=== PATIENT | male | born 1970 | race Caucasian/White ===

== ENCOUNTER 2019-09-18 19:34 | Emergency (ER) | payer SELFPAY ==
[2019-09-18 19:38] VITALS: BP 178/97; PULSE 100; RESP 16; TEMP 36.5; O2SAT 98
--- NOTE | 2019-09-18 19:50 | ED.GENADUL_ITS ---
Discharge Plan Disposition Patient Disposition: HOME Condition: Fair Discharge Details Chief Complaint: Sorethroat Clinical Impression: Abscess of tonsil Primary Care Provider: None,None ED Provider: Maritza Humphrey Home Meds and New Rx's Prescriptions: New clindamycin HCl 150 mg capsule 450 mg PO TID 6 Days Qty: 54 RF: 0 Discharge Instructions Instructions: Clindamycin (By mouth), Abscess (ED) Additional Instructions: Encourage water intake. Tylenol and/or ibuprofen as needed for discomfort. Please take the antibiotics as prescribed. Even if symptoms improve, please take entire course. Please take probiotic while on the antibiotic. You need close follow-up with ENT tomorrow for reevaluation of the abscess that was drained tonight. Please call ENT at [facility] tomorrow, . If you develop inability to swallow, increased swelling, fevers, headache or other new/worsening symptom please seek care urgently once again. Referrals: Elias Navarro DO [OSTEOPATHIC DOCTOR] - Discharge Data Discharge Date/Time-TO BE ENTERED AT DEPARTURE: 09/19/19 00:03 Medical Decision Making <PATRICK Gandhi - Last Filed: 09/19/19 00:09> Patient is a pleasant 49-year-old gentleman presenting today with chief complaint of burning in the back of his mouth and throat. He states this began a few days ago and is progressively been worsening. Endorses a mild sore throat does not have any change in his appetite or eating habits. Has not experienced pain like this historically. Is not having tender discomfort. No fevers or chills. Patient does report overall poor dentition. Also notes that the pain does radiate down to his neck. States that today he coughed and noted a small bit of hematemesis. No large quantities of blood or clot. Weak or lightheaded. Denies any shortness of breath. On exam, patient appears nontoxic. He does appear to have dry mucous membranes. No swelling of the soft palate on the posterior right aspect, tonsillar enlargement and uvular displacement. I am concerned for potential peritonsillar abscess. Palpable lymphadenopathy in the right side. No nuchal rigidity. Patient appears nontoxic. No trismus, speaking in full sentences. No evidence of blood on exam. Plan for CT imaging of the neck. Will obtain baseline labs. Will give dexamethasone as well as clindamycin. Labs reviewed. No leukocytosis. Stable H&H. CMP without significant abnormality. CT reviewed by radiologist: FINDINGS: Sinuses: Minimal partial ethmoid sinusitis. Nasopharynx: Unremarkable. Oropharynx: Enlarged right tonsillar tissue with internal hypodense area (approx 23 x 5 x 19 mm) containing air collections consistent with internal abscess. This area tracks medially to the airway. Hypopharynx: Unremarkable. Larynx: Unremarkable. Normal epiglottis. Retropharyngeal space: Unremarkable. Submandibular/Parotid glands: Normal. Glands are normal in size. Thyroid: Normal. No enlarged or calcified nodules. Lymph nodes: Unremarkable. No lymphadenopathy. Trachea: Visualized trachea is unremarkable. Lungs: Unremarkable as visualized. Bones/joints: See Oropharynx finding. Soft tissues: Unremarkable. No significant soft tissue swelling. IMPRESSION: Enlarged right tonsillar tissue with internal hypodense area (approx 23 x 5 x 19 mm) containing air collections consistent with internal abscess. This area tracks medially to the airway. Discussed these findings with the patient, will consult with ENT. Consulted with Dr. Navarro, there was an accident and he is not national expansion recruiter. No national expansion recruiter physician offered. He did advise that if we are unable ot get the patients abscess drained today, they willl try to get him into office tomorrow. Discussed case with Dr. Jasso. He reviewed the imaging as well as evaluated patient. Feels that he is a candidate for I&D while here. He discussed the risk/benefits as well as expected procedural steps with the patient at length. Respiratory therapy was here as with appropriate follow-up in the event of respiratory issue during the procedure. Patient did tolerate the procedure well. Only scant amount of purulent discharge was obtained. However, patient did appear improved few months later. Patient will continue on clindamycin. Plan to discharge home with 1 dose and for tomorrow morning. Is given return precautions. He will contact ENT tomorrow to schedule prompt follow-up. All of his questions and concerns were addressed and he is agreement this plan. Patient continues to rest comfortably and denies any discomfort at this point. <Tavo Jasso, - Last Filed: 09/18/19 23:54> Postprocedure evaluation at time of discharge demonstrated no evidence of significant swelling in the posterior oropharynx, no worsening of the swelling, no signs of airway compromise. Patient tolerated procedure notably well. HPI <PATRICK Gandhi - Last Filed: 09/19/19 00:09> General Mode of arrival: ambulatory . Date/Time Provider Initiated Documentation: 09/18/19 19:44 . Limitations to Documentation: no limitations . Information obtained by: patient and RN notes reviewed . History of Present Illness 49 year old M presents to the emergency department with the chief complaint of burning in throat, bile taste in back of throat, small amount of hemateme, described as mild, with intensity rated at 1. Quality is described as burning, and is localized to the mouth. Patient reports no radiation. Patient started experiencing this day(s) and it has been constant. No relieving factors improve symptom(s), No exacerbating factors reported . Patient notes denies chest pain, cough, fever/chills, loss of appetite, nausea/vomiting, rash and shortness of breath. Patient did receive the following treatments prior to arrival, none Related Data Home Medications Medication Instructions Recorded Confirmed clindamycin HCl 450 mg PO TID 6 Days #54 cap 09/18/19 Previous Rx's Medication Instructions Recorded clindamycin HCl 450 mg PO TID 6 Days #54 cap 09/18/19 Allergies Allergy/AdvReac Type Severity Reaction Status Date / Time No Known Allergies Allergy Unverified 09/18/19 19:45 General Stated Complaint: Sorethroat ANGELA: 4 Review of Systems <PATRICK Gandhi Last Filed: 09/19/19 00:09> Constitutional Constitutional: Reports as per HPI, Denies chills, Denies fever(s) and Denies headache(s) Eyes Eyes: Reports as per HPI, Denies eye discharge and Denies irritation ENT Ears, Nose, Mouth, and Throat: Reports as per HPI, Denies change in voice, Denies headache(s), Denies hoarseness, Reports neck mass, Reports neck pain, Reports odynophagia, Reports sore throat, Denies throat swelling and Denies tongue swelling Cardiovascular Cardiovascular: Reports as per HPI, Denies chest pain and Denies dyspnea Respiratory Respiratory: Reports as per HPI, Denies chest congestion, Denies cough, Reports hemoptysis, Denies pain with cough and Denies dyspnea Gastrointestinal Gastrointestinal: Reports as per HPI, Denies abdominal pain, Denies change in bowel habits, Denies nausea, Reports odynophagia and Denies vomiting Musculoskeletal Musculoskeletal: Reports neck pain Integumentary/Breasts Skin/Breast: Reports as per HPI and Denies rash Neurologic Neurologic: Reports as per HPI and Denies headache(s) Allergic/Immunologic Allergic/Immunologic: Denies throat swelling and Denies tongue swelling PFSH <PATIRCK Gandhi - Last Filed: 09/19/19 00:09> Social History Smoking/Tobacco Use Status: Current-Occasional Tobacco Type: cigarettes Years smoked: 35 Tobacco: How many years used: 35 Alcohol Intake: current Alcohol Intake frequency: 3 or more drinks per day Alcohol type: beer Drug use: Occasionally Substance use type: marijuana Do you feel safe at home: No Do you feel safe in your relationship?: No Exam <PATRICK Gandhi - Last Filed: 09/19/19 00:09> Const General: cooperative, healthy appearing, comfortable, no acute distress, well developed and well groomed Nutritional Appearance: well nourished and overweight Orientation: alert and awake [facility] Head: normal to inspection, normocephalic and atraumatic Ears: hearing grossly normal bilaterally, external ears normal and TM's normal bilaterally General nose exam: external nose normal and nares normal Face and sinus: normal facial exam, sinuses nontender and face symmetric Mouth: oral mucosae normal, lip normal, tongue normal, mucous membranes dry (dry), no trismus, No restricted motion and other (swelling of the posterior right soft pallate) Teeth and gingiva: poor dentition Throat: abnormal tonsil on the right erythema and hypertrophy and uvula laterally displaced to the left Eyes General: appearance normal, both eyes and all related structures Neck Neck: normal visual inspection, full ROM, no meningeal signs, lymphadenopathy and tender Resp Effort & Inspection: normal respiratory effort, able to speak in complete sentences and no respiratory distress Auscultation: clear to auscultation bilaterally, no rales, no rhonchi and no wheezes Cardio Rate: regular rate Rhythm: regular rhythm Heart Sounds: S1 normal and S2 normal Skin General skin exam: no rashes or lesions noted Neuro General: patient alert and patient awake Cognition: normal cognition Speech: speech normal Gait: normal gait Psych Appearance: grossly normal and well kempt Mental Status: mental status grossly normal Speech and Movement: speech and movement normal Course <PATRICK Gandhi - Last Filed: 09/19/19 00:09> Vital Signs Vital signs: Vital Signs Temperature 36.5 C 09/18/19 19:38 Pulse 100 H 09/18/19 19:38 Respiratory Rate 16 09/18/19 19:38 Blood Pressure 178/97 H 09/18/19 19:38 Pulse Oximetry 98 09/18/19 19:38 Temperature 36.5 C 09/18/19 19:38 Temperature Source Tympanic 09/18/19 19:38 Pulse 100 H 09/18/19 19:38 Respiratory Rate 16 09/18/19 19:38 Respiratory Effort 09/18/19 19:43 Blood Pressure 178/97 H 09/18/19 19:38 Blood Pressure Position Sitting 09/18/19 19:38 Pulse Oximetry 98 09/18/19 19:38 Oxygen Delivery Method Room Air 09/18/19 19:38 Oxygen Flow Rate 0 09/18/19 19:38 Pain Level 1 09/18/19 19:38 <Tavo Jasso DO - Last Filed: 09/18/19 23:54> Abscess I/D Site: Other (Right peritonsillar space) Side (if applicable): Right Sedation/analgesia: None Local Anesthetic: Lidocaine 1% and Other Anesthetic (Let and Hurricaine spray) Amount of anesthesia used (mL): 3 Technique: Needle Aspiration Amount of fluid expressed (mL): 1 Irrigation: No Packing used?: None Complications: Other (2 attempts were made in the area of swelling/edema. Initial attempt made to no fluid removal, second attempt made slightly more lat erally led to a small amount of fluid removal which appeared to be slightly purulent and bloody. Slightly less than 1 mL total. Patient tolerated procedure well with )
[2019-09-18] MEDS: Dexamethasone 10 MG/ML VIAL IVP (20:36)
[2019-09-18] MEDS: Normal Saline 1,000 ML 1000 ML IV (20:36)
[2019-09-18 20:41] LABS: Abs Immature Grans 0.04 k/cumm (0.0-0.09); Absolute Basophil Count 0.02 k/cumm (0.0-0.2); Absolute Eosinophil Count 0.18 k/cumm (0.0-0.7); Absolute Monocyte Count 0.94 k/cumm (0.11-0.7); Absolute Neutrophil Count 5.76 k/cumm (1.2-6.7); Basophils % 0.2; Eosinophils % 1.8; HCT 47.8 % (40.0-50.0); HGB 15.9 g/dL (13.5-17.5); Immature Grans % 0.4 %; Lymphocytes % 28.7; Mean Corp. HGB Concentration 33.3 g/dL (32.0-36.0); Mean Corpuscular Hemoglobin 29.4 pg (27.0-33.0); Mean Corpuscular Volume 88.5 fL (80-95); Mean Platelet Volume 9.4 fL (8.0-11.0); Monocytes % 9.7; Neutrophils % 59.2; Platelet Count 280 x1000/uL (130-400); RBC Distribution Width 12.8 % (11.8-14.1); White Blood Cell Count 9.74 k/cumm (4.4-10.8)
[2019-09-18 20:59] LABS: ALT 20 U/L (16-63); AST 17 U/L (15-37); Albumin 3.8 g/dL (3.4-5.0); Alkaline Phosphatase 71 U/L (46-116); Anion Gap 8.3 mmol/L (3-11); BUN 26 mg/dL (7-18); Bilirubin, Total 0.5 mg/dL (0.2-1.0); CO2 30.7 mmol/L (21.0-32.0); Calcium 9.5 mg/dL (8.5-10.1); Chloride 100 mmol/L (98-107); Glucose 125 mg/dL (74-106); Sodium 139 mmol/L (136-145)
--- NOTE | 2019-09-18 21:34 | DI.CT_ITS ---
EXAM: CT NECK W CLINICAL HISTORY: concern for peritonsilar abscess. TECHNIQUE: Imaging Protocol: Axial computed tomography images with coronal and sagittal reformatted images were created and reviewed CONTRAST MATERIAL: Intravenous: Omnipaque 350 Contrast volume:100 mL COMPARISON: No exams were available for comparison FINDINGS: Parotids/submandibular: Within normal limits. Thyroid gland: Within normal limits. Lymphadenopathy: There is an enlarged lymph node at the level of the right angle of the mandible luke suring 3.3 cm transverse by 2.6 cm AP by 5.4 cm craniocaudal. Carotids/Jugular: Within normal limits. Oropharynx: There is enlarged right tonsillar tissue within area of decreased density centrally. Thi s measures approximately 2.3 x 0.5 x 2 cm. It contains air internally. The finding is suspicious fo r an abscess. Nasopharynx: Within normal limits. Retropharyngeal space: Within normal limits. Hypopharynx: Within normal limits. Larynx: Within normal limits. Bones: Within normal limits. Orbits and orbital soft tissues: Within normal limits. Visualized paranasal sinuses: Opacification of a few ethmoid air cells. The remaining visualized si nuses are clear. Lung apices: Within normal limits. Soft tissues: Within normal limits. IMPRESSION: Findings suggesting of a right tonsillar abscess measuring 2.3 x 0.5 x 2 cm. Enlarged right lymph no de. RADIATION DOSE DELIVERED: Total DLP Total DLP DATA REPOSITORY: All CT scans at this facility are submitted to the National Radiology Data Registry (NRDR) Dose Index Registry (DIR) with the [employer] (A[employer]). RADIATION OPTIMIZATION: All CT scans at this facility use at least one of these dose optimization te chniques: automated exposure control; mA and/or kV adjustment per patient size (includes targeted exa ms where dose is matched to clinical indication); or iterative reconstruction.
[2019-09-18] MEDS: Normal Saline Flush 10 ML SYR IVP (21:39)
[2019-09-18] MEDS: Omnipaque 350 MG/ML 100 ML BTL IJ (21:47)
[2019-09-18] MEDS: Normal Saline - Diluent 50 ML VIAL IV (21:47)
[2019-09-18] MEDS: CLINDAMYCIN 600 MG/50 ML BAG 100 MG IVPB (21:59)
--- NOTE | 2019-09-18 22:15 | DI.VRAD_ITS ---
PROCEDURE INFORMATION: Exam: CT Neck With Contrast Exam date and time: 09/18/2019 9:34 PM Age: 49 years old Clinical indication: Throat pain; ?peritonsilar abscess TECHNIQUE: Imaging protocol: Computed tomography images of the neck with intravenous contrast. Radiation optimization: All CT scans at this facility use at least one of these dose optimization techniques: automated exposure control; mA and/or kV adjustment per patient size (includes targeted exams where dose is matched to clinical indication); or iterative reconstruction. Contrast material: ICXT113; Contrast volume: 100 ml; Contrast route: INTRAVENOUS (IV); COMPARISON: No relevant prior studies available. FINDINGS: Sinuses: Minimal partial ethmoid sinusitis. Nasopharynx: Unremarkable. Oropharynx: Enlarged right tonsillar tissue with internal hypodense area (approx 23 x 5 x 19 mm) containing air collections consistent with internal abscess. This area tracks medially to the airway. Hypopharynx: Unremarkable. Larynx: Unremarkable. Normal epiglottis. Retropharyngeal space: Unremarkable. Submandibular/Parotid glands: Normal. Glands are normal in size. Thyroid: Normal. No enlarged or calcified nodules. Lymph nodes: Unremarkable. No lymphadenopathy. Trachea: Visualized trachea is unremarkable. Lungs: Unremarkable as visualized. Bones/joints: See Oropharynx finding. Soft tissues: Unremarkable. No significant soft tissue swelling. IMPRESSION: Enlarged right tonsillar tissue with internal hypodense area (approx 23 x 5 x 19 mm) containing air collections consistent with internal abscess. This area tracks medially to the airway. Dictated and Authenticated by: Nilesh Honeycutt MD. Ordering:YAZ Salas MD
[2019-09-18] MEDS: Lidocaine/Epinephri/Tetracaine Topical Gel 3 ML TP (22:51)
[2019-09-18] MEDS: Clindamycin 150 MG CAP 450 MG PO (23:51)
[2019-09-18 23:59] VITALS: BP 168/88; PULSE 89; RESP 16; TEMP 36.5; O2SAT 98
== END 2019-09-19 00:03 | disposition home or self-care (01) ==
LOC: ER 09-19 00:01
PROVIDERS: Emergency Provider Physician Assistant
DX: J36 Peritonsillar abscess (principal); R04.2 Hemoptysis
CPT/HCPCS: 10160; 36415; 70491; 80053; 96361; 96365; 99285; 85025; 99284; J1100; J3490

== ENCOUNTER 2020-10-14 10:03 | Emergency (ER) | payer SELFPAY ==
[2020-10-14 10:08] VITALS: BP 183/100; PULSE 88; RESP 14; TEMP 36.9; O2SAT 93
[2020-10-14 10:15] VITALS: BP 169/103
--- NOTE | 2020-10-14 10:22 | ED.GENADUL_ITS ---
Discharge Plan Disposition Patient Disposition: HOME Condition: Stable Discharge Details Clinical Impression: Hypertension Primary Care Provider: None,None ED Provider: Marcel Soto Discharge Instructions Additional Instructions: Try to stop smoking Follow up with a primary care provider. Your blood pressure today was high and needs to be rechecked as you may require medication return to the emergency department if you have chest pain, difficulty breathing or feel more ill Stand Alone Forms: Work Release Medical Decision Making 50 yo male with prior history of hypertension not on medications and doesn't see a provider routinely comes in with chief complaint of requesting a work note. 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 It lated less than an hour. He has not had symptoms since and had to come here to get a note to return to work. He denies chest pain, dyspnea, weakness, vision changes, falls, abdomen pain, n/v. He has normal gait and no focal neuro deficits here. He is noted to have hypertension here. I suspect his symptoms were due to either dehydration or peripheral vertigo given they were brief and none since. Given he has no symptoms now do not feel he requires any workup/testing. I did advise he needs to see a pcp yonatan to recheck his BP and he should quit smoking. Return pr ecautions given Differential Diagnosis Differential Diagnosis: vertigo, essential hypertension HPI General Mode of arrival: ambulatory . Date/Time Provider Initiated Documentation: 10/14/20 10:05 . Limitations to Documentation: no limitations . Information obtained by: patient . History of Present Illness 50 year old M presents to the emergency department with the chief complaint of dizziness, described as moderate, Patient reports no radiation. Patient started experiencing this day(s) (2) and it has been now resolved. No relieving factors improve symptom(s), No exacerbating factors reported . Patient notes no other symptoms.. Related Data Allergies Allergy/AdvReac Type Severity Reaction Status Date / Time No Known Allergies Allergy Unverified 10/14/20 10:12 General Stated Complaint: GenMedical ANGELA: 4 Review of Systems All systems reviewed & are unremarkable except as noted in HPI and below Constitutional Constitutional: Denies chills, Denies fever(s) and Denies weakness Cardiovascular Cardiovascular: Denies chest pain and Denies dyspnea Respiratory Respiratory: Denies cough and Denies dyspnea Gastrointestinal Gastrointestinal: Denies abdominal pain, Denies nausea and Denies vomiting Musculoskeletal Musculoskeletal: Denies joint swelling Neurologic Neurologic: Denies weakness [facility] Social History Smoking/Tobacco Use Status: Current every day Tobacco Type: cigarettes Years smoked: 35 Tobacco: How many years used: 35 Smoking risk assessment performed?: Yes Alcohol Intake: former Drug use: Occasionally Substance use type: former substance user and marijuana Do you feel safe at home: Yes Do you feel safe in your relationship?: Yes Exam Const General: no acute distress Orientation: alert HENMT Head: normal to inspection Ears: external ears normal General nose exam: external nose normal Mouth: moist mucous membranes Eyes General: appearance normal, both eyes and all related structures Neck Neck: normal visual inspection Resp Effort & Inspection: normal respiratory effort and able to speak in complete sentences Cardio Rate: regular rate GI Palpation: soft, not rigid and no splenomegaly Skin General skin exam: no rashes or lesions noted Neuro General: patient alert and patient oriented x3 Extrem General: normal to inspection Psych Mental Status: mental status grossly normal Course Vital Signs Vital signs: Vital Signs Temperature 36.9 C 10/14/20 10:08 Pulse 88 10/14/20 10:08 Respiratory Rate 14 10/14/20 10:08 Blood Pressure 183/100 H 10/14/20 10:08 Pulse Oximetry 93 10/14/20 10:08 Temperature 36.9 C 10/14/20 10:08 Temperature Source Skin 10/14/20 10:08 Pulse 88 10/14/20 10:08 Respiratory Rate 14 10/14/20 10:08 Respiratory Effort Non-Labored 10/14/20 10:14 Respiratory Depth Normal 10/14/20 10:14 Respiratory Pattern Normal 10/14/20 10:14 Blood Pressure 169/103 H 10/14/20 10:15 Blood Pressure Position Sitting 10/14/20 10:08 Pulse Oximetry 93 10/14/20 10:08 Oxygen Delivery Method Room Air 10/14/20 10:08 Oxygen Flow Rate 0 10/14/20 10:08 Pain Level 0 10/14/20 10:08
== END 2020-10-14 10:27 | disposition home or self-care (01) ==
PROVIDERS: Emergency Provider Emergency Medicine
DX: I10 Essential (primary) hypertension (principal); F17.210 Nicotine dependence, cigarettes, uncomplicated; R42 Dizziness and giddiness
CPT/HCPCS: 99281

== ENCOUNTER 2021-01-25 15:50 | Outpatient (CLI) | payer MEDICAID, SELFPAY ==
[2021-01-25 16:05] LABS: Abs Immature Grans 0.19 10^3/uL (0.0-0.06); Absolute Basophil Count 0.11 10^3/uL (0.0-0.2); Absolute Eosinophil Count 0.65 10^3/uL (0.0-0.7); Absolute Lymphocyte Count 2.25 10^3/uL (1.2-3.4); Absolute Monocyte Count 0.54 10^3/uL (0.1-0.8); Absolute Neutrophil Count 4.71 10^3/uL (1.2-6.7); Basophils % 1.3; Eosinophils % 7.7; HCT 45.3 % (40.0-50.0); HGB 14.9 g/dL (13.5-17.5); Immature Grans % 2.2; Lymphocytes % 26.6; MCH 27.7 pg (27.0-33.0); MCHC 32.9 % (32.0-36.0); MCV 84.4 fL (80-95); MPV 8.9 fL (8.0-11.0); Monocytes % 6.4; Neutrophils % 55.8; Nucleated RBC 0 %; Platelet Count 431 10^3/uL (130-400); RBC 5.37 10^6/uL (4.36-5.78); RDW 11.7 % (11.8-14.1); RDW-SD 35.4 fL; WBC 8.45 10^3/uL (4.4-10.8)
[2021-01-25 16:34] LABS: ALT 45 U/L (16-63); AST 54 U/L (15-37); Albumin 2.9 g/dL (3.4-5.0); Alkaline Phosphatase 90 U/L (46-116); Anion Gap 8.4 mmol/L (3-11); BUN 18 mg/dL (7-18); Bilirubin, Total 0.5 mg/dL (0.2-1.0); CO2 28.6 mmol/L (21.0-32.0); CREATININE 0.8 mg/dL (0.70-1.30); Calcium 9.1 mg/dL (8.5-10.1); Chloride 101 mmol/L (98-107); Glucose 104 mg/dL (74-106); Magnesium 2.2 mg/dL (1.8-2.4); Potassium 4.1 mmol/L (3.5-5.1); Sodium 138 mmol/L (136-145)
== END 2021-01-25 15:51 | disposition home or self-care (01) ==
LOC: LBO 15:52
PROVIDERS: PCP Nurse Practitioner Family; Visit Provider Internal Medicine Hematology & Oncology
DX: C09.9 Malignant neoplasm of tonsil, unspecified (principal)
CPT/HCPCS: 36415; 80053; 83735; 85025

== ENCOUNTER 2021-02-15 03:15 | Outpatient (CLI) | payer MEDICAID, SELFPAY ==
[2021-02-15 08:55] LABS: Abs Immature Grans 0.01 10^3/uL (0.0-0.06); Absolute Basophil Count 0.05 10^3/uL (0.0-0.2); Absolute Eosinophil Count 0.45 10^3/uL (0.0-0.7); Absolute Lymphocyte Count 1.87 10^3/uL (1.2-3.4); Absolute Monocyte Count 0.55 10^3/uL (0.1-0.8); Absolute Neutrophil Count 2.29 10^3/uL (1.2-6.7); Eosinophils % 8.6; HCT 40.4 % (40.0-50.0); HGB 13.2 g/dL (13.5-17.5); Immature Grans % 0.2; Lymphocytes % 35.8; MCH 27.7 pg (27.0-33.0); MCHC 32.7 % (32.0-36.0); MCV 84.7 fL (80-95); Monocytes % 10.5; Neutrophils % 43.9; Nucleated RBC 0 %; Platelet Count 191 10^3/uL (130-400); RBC 4.77 10^6/uL (4.36-5.78); RDW 12.5 % (11.8-14.1); RDW-SD 38.7 fL; WBC 5.22 10^3/uL (4.4-10.8)
[2021-02-15 09:09] LABS: ALT 28 U/L (16-63); AST 26 U/L (15-37); Albumin 3.3 g/dL (3.4-5.0); Alkaline Phosphatase 76 U/L (46-116); Anion Gap 6.6 mmol/L (3-11); BUN 17 mg/dL (7-18); Bilirubin, Total 0.5 mg/dL (0.2-1.0); CO2 29.4 mmol/L (21.0-32.0); CREATININE 0.7 mg/dL (0.70-1.30); Calcium 8.8 mg/dL (8.5-10.1); Chloride 106 mmol/L (98-107); Glucose 100 mg/dL (74-106); Magnesium 2.2 mg/dL (1.8-2.4); Potassium 3.2 mmol/L (3.5-5.1); Sodium 142 mmol/L (136-145); Total Protein 7.1 g/dL (6.4-8.2)
== END 2021-02-15 03:16 | disposition home or self-care (01) ==
PROVIDERS: PCP Nurse Practitioner Family; Visit Provider Internal Medicine Hematology & Oncology
DX: C09.9 Malignant neoplasm of tonsil, unspecified (principal)
CPT/HCPCS: 36415; 80053; 83735; 85025

== ENCOUNTER 2021-03-29 00:45 | Outpatient (RCR) | payer MEDICAID, SELFPAY ==
[2021-03-08 09:10] LABS: Abs Immature Grans 0.05 10^3/uL (0.0-0.06); Absolute Basophil Count 0.06 10^3/uL (0.0-0.2); Absolute Eosinophil Count 0.08 10^3/uL (0.0-0.7); Absolute Lymphocyte Count 1.75 10^3/uL (1.2-3.4); Absolute Monocyte Count 0.38 10^3/uL (0.1-0.8); Absolute Neutrophil Count 4.41 10^3/uL (1.2-6.7); Basophils % 0.9; Eosinophils % 1.2; HCT 36.8 % (40.0-50.0); HGB 11.8 g/dL (13.5-17.5); Immature Grans % 0.7; MCHC 32.1 % (32.0-36.0); MCV 87.2 fL (80-95); MPV 8.7 fL (8.0-11.0); Monocytes % 5.6; Neutrophils % 65.6; Nucleated RBC 0 %; Platelet Count 368 10^3/uL (130-400); RBC 4.22 10^6/uL (4.36-5.78); RDW 13.3 % (11.8-14.1); RDW-SD 41.5 fL; WBC 6.73 10^3/uL (4.4-10.8)
[2021-03-08 09:23] LABS: ALT 25 U/L (16-63); AST 20 U/L (15-37); Albumin 2.9 g/dL (3.4-5.0); Alkaline Phosphatase 80 U/L (46-116); Anion Gap 3.7 mmol/L (3-11); BUN 15 mg/dL (7-18); Bilirubin, Total 0.3 mg/dL (0.2-1.0); CO2 35.3 mmol/L (21.0-32.0); CREATININE 0.8 mg/dL (0.70-1.30); Calcium 8.7 mg/dL (8.5-10.1); Chloride 99 mmol/L (98-107); Glucose 149 mg/dL (74-106); Magnesium 1.6 mg/dL (1.8-2.4); Potassium 4.3 mmol/L (3.5-5.1); Sodium 138 mmol/L (136-145); Total Protein 6.9 g/dL (6.4-8.2)
[2021-03-29] MEDS: Normal Saline Flush 10 ML SYR IVP (08:16)
[2021-03-29 08:32] LABS: Abs Immature Grans 0.03 10^3/uL (0.0-0.06); Absolute Basophil Count 0.07 10^3/uL (0.0-0.2); Absolute Eosinophil Count 0.11 10^3/uL (0.0-0.7); Absolute Monocyte Count 0.37 10^3/uL (0.1-0.8); Absolute Neutrophil Count 3.66 10^3/uL (1.2-6.7); Basophils % 1.2; Eosinophils % 1.8; HCT 35.1 % (40.0-50.0); HGB 10.9 g/dL (13.5-17.5); Immature Grans % 0.5; Lymphocytes % 29.8; MCH 26.5 pg (27.0-33.0); MCHC 31.1 % (32.0-36.0); MCV 85.4 fL (80-95); Monocytes % 6.1; Neutrophils % 60.6; Nucleated RBC 0 %; Platelet Count 263 10^3/uL (130-400); RBC 4.11 10^6/uL (4.36-5.78); RDW 14.6 % (11.8-14.1); RDW-SD 45.1 fL; WBC 6.04 10^3/uL (4.4-10.8)
[2021-03-29 09:09] LABS: ALT 10 U/L (16-63); AST 14 U/L (15-37); Albumin 2.7 g/dL (3.4-5.0); Alkaline Phosphatase 77 U/L (46-116); Anion Gap 7.4 mmol/L (3-11); BUN 8 mg/dL (7-18); Bilirubin, Total 0.3 mg/dL (0.2-1.0); CO2 31.6 mmol/L (21.0-32.0); CREATININE 0.7 mg/dL (0.70-1.30); Calcium 8.5 mg/dL (8.5-10.1); Chloride 103 mmol/L (98-107); Glucose 104 mg/dL (74-106); Magnesium 1.6 mg/dL (1.8-2.4); Potassium 3.4 mmol/L (3.5-5.1); Sodium 142 mmol/L (136-145); Total Protein 6.1 g/dL (6.4-8.2)
[2021-03-29 12:55] LABS: TSH 1.06 uIU/mL (0.36-3.74)
== END 2021-03-29 23:59 | disposition home or self-care (01) ==
LOC: INF 00:45
PROVIDERS: PCP Nurse Practitioner Family; Visit Provider Internal Medicine Hematology & Oncology
DX: R13.12 Dysphagia, oropharyngeal phase (principal); C09.9 Malignant neoplasm of tonsil, unspecified
CPT/HCPCS: 36415; 36591; 80053; 83735; 84443; 85025

== ENCOUNTER 2021-04-19 02:02 | Outpatient (RCR) | payer MEDICAID, SELFPAY ==
[2021-04-19] MEDS: Normal Saline Flush 10 ML SYR IVP (08:08)
[2021-04-19 08:15] LABS: Abs Immature Grans 0.05 10^3/uL (0.0-0.06); Absolute Basophil Count 0.06 10^3/uL (0.0-0.2); Absolute Eosinophil Count 0.06 10^3/uL (0.0-0.7); Absolute Lymphocyte Count 2.24 10^3/uL (1.2-3.4); Absolute Monocyte Count 0.46 10^3/uL (0.1-0.8); Basophils % 1.1; Eosinophils % 1.1; HCT 33.2 % (40.0-50.0); HGB 10.3 g/dL (13.5-17.5); Immature Grans % 0.9; MCH 26.8 pg (27.0-33.0); MCV 86.2 fL (80-95); MPV 9.1 fL (8.0-11.0); Monocytes % 8.4; Neutrophils % 47.5; Nucleated RBC 0 %; Platelet Count 270 10^3/uL (130-400); RBC 3.85 10^6/uL (4.36-5.78); RDW 16.8 % (11.8-14.1); RDW-SD 51.8 fL; WBC 5.47 10^3/uL (4.4-10.8)
[2021-04-19 08:29] LABS: ALT 8 U/L (16-63); AST 19 U/L (15-37); Albumin 2.7 g/dL (3.4-5.0); Alkaline Phosphatase 84 U/L (46-116); Anion Gap 6.4 mmol/L (3-11); BUN 14 mg/dL (7-18); Bilirubin, Total 0.3 mg/dL (0.2-1.0); CO2 30.6 mmol/L (21.0-32.0); CREATININE 0.8 mg/dL (0.70-1.30); Calcium 8.3 mg/dL (8.5-10.1); Chloride 103 mmol/L (98-107); Glucose 106 mg/dL (74-106); Magnesium 1.7 mg/dL (1.8-2.4); Potassium 3.7 mmol/L (3.5-5.1); Sodium 140 mmol/L (136-145); Total Protein 6.1 g/dL (6.4-8.2)
[2021-04-19 10:29] LABS: FREE T4 1.05 ng/dL (0.76-1.46); TSH 1.99 uIU/mL (0.36-3.74)
== END 2021-04-26 23:59 | disposition home or self-care (01) ==
LOC: INF 02:02
PROVIDERS: PCP Nurse Practitioner Family; Visit Provider Internal Medicine Hematology & Oncology
DX: C09.9 Malignant neoplasm of tonsil, unspecified (principal); Z45.2 Encounter for adjustment and management of vascular access device
CPT/HCPCS: 36591; 80053; 83735; 84439; 84443; 85025

== ENCOUNTER 2021-05-26 02:25 | Outpatient (CLI) | payer MEDICAID, SELFPAY ==
--- NOTE | 2021-04-28 13:01 | ST.MBS ---
Date of Service Date of service: 05/26/21 Time of Service: 14:30 Modified Barium Swallow Study Findings: Videofluoroscopic Swallowing Evaluation (VFSE) / Modified Barium Swallow Study (MBSS) HPI: Patient is a 51 year old male referred for VFSE/MBSS from Dr. 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 Abnormal weight loss Cancer related pain DNI (do not intubate) DNR (do not resuscitate) Dysphagia Head and neck cancer Hypertension Palliative care patient Physician orders for life-sustaining treatment (POLST) form indicates patient wish for [id number] status Tonsil cancer Trismus Surgical History? History of oral surgery Hx of knee surgery Previous Imaging: N/A SUBJECTIVE: He has a PET scan and follow-up with oncology scheduled for 05/06. He is meeting with an oral surgeon on 05/11.? He is scheduled to have all of his teeth extracted on 05/12. Note: Patient did not show for MBS appointment this date. ERP IMPLEMENTATION CONSULTANT attempted to call patient, unable to leave . No charge entered this date. Naa Chamorro MA CCC-ERP IMPLEMENTATION CONSULTANT Speech-Language Pathologist [place]#[phone] Coding
== END 2021-05-26 02:45 ==
PROVIDERS: PCP Nurse Practitioner Family; Visit Provider Speech-Language Pathologist
DX: R69 Illness, unspecified (principal)

== ENCOUNTER 2021-07-27 02:05 | Outpatient (RCR) | payer MEDICAID, SELFPAY ==
[2021-07-01] MEDS: Normal Saline Flush 10 ML SYR IVP (08:11)
[2021-07-01] MEDS: Heparin 500 UNITS/5 ML SYRINGE IV (08:11)
[2021-07-01 08:21] LABS: Abs Immature Grans 0.03 10^3/uL (0.0-0.06); Absolute Basophil Count 0.04 10^3/uL (0.0-0.2); Absolute Eosinophil Count 0.24 10^3/uL (0.0-0.7); Absolute Lymphocyte Count 2.49 10^3/uL (1.2-3.4); Absolute Monocyte Count 0.55 10^3/uL (0.1-0.8); Absolute Neutrophil Count 2.77 10^3/uL (1.2-6.7); Basophils % 0.7; Eosinophils % 3.9; HCT 33.5 % (40.0-50.0); HGB 10.5 g/dL (13.5-17.5); Immature Grans % 0.5; Lymphocytes % 40.7; MCH 27.9 pg (27.0-33.0); MCHC 31.3 % (32.0-36.0); MCV 89 fL (80-95); MPV 9.1 fL (8.0-11.0); Neutrophils % 45.2; Platelet Count 223 10^3/uL (130-400); RBC 3.77 10^6/uL (4.36-5.78); RDW 16.1 % (11.8-14.1); RDW-SD 53.1 fL; WBC 6.12 10^3/uL (4.4-10.8)
[2021-07-01 09:03] LABS: ALT 15 U/L (16-63); AST 22 U/L (15-37); Albumin 2.6 g/dL (3.4-5.0); Alkaline Phosphatase 98 U/L (46-116); Anion Gap 7.5 mmol/L (3-11); BUN 9 mg/dL (7-18); Bilirubin, Total 0.5 mg/dL (0.2-1.0); CO2 30.5 mmol/L (21.0-32.0); CREATININE 0.9 mg/dL (0.70-1.30); Calcium 8.4 mg/dL (8.5-10.1); Chloride 103 mmol/L (98-107); Folate 9.5 ng/mL (8.6-20.0); Glucose 84 mg/dL (74-106); Magnesium 1.8 mg/dL (1.8-2.4); Potassium 3.7 mmol/L (3.5-5.1); Sodium 141 mmol/L (136-145); TSH 1.33 uIU/mL (0.36-3.74); Total Protein 6.2 g/dL (6.4-8.2); Vitamin B12 344 pg/mL (193-986)
[2021-07-19] MEDS: Normal Saline Flush 10 ML SYR IVP (14:53)
[2021-07-19] MEDS: Heparin 500 UNITS/5 ML SYRINGE IV (14:54)
[2021-07-19 15:29] LABS: Abs Immature Grans 0.02 10^3/uL (0.0-0.06); Absolute Basophil Count 0.05 10^3/uL (0.0-0.2); Absolute Eosinophil Count 0.18 10^3/uL (0.0-0.7); Absolute Lymphocyte Count 1.77 10^3/uL (1.2-3.4); Absolute Neutrophil Count 3.94 10^3/uL (1.2-6.7); Basophils % 0.8; Eosinophils % 2.7; HCT 38.3 % (40.0-50.0); HGB 11.7 g/dL (13.5-17.5); Immature Grans % 0.3; Lymphocytes % 26.6; MCH 27.7 pg (27.0-33.0); MCHC 30.5 % (32.0-36.0); MCV 91 fL (80-95); MPV 9.5 fL (8.0-11.0); Monocytes % 10.5; Neutrophils % 59.1; Platelet Count 306 10^3/uL (130-400); RBC 4.23 10^6/uL (4.36-5.78); RDW 14.9 % (11.8-14.1); WBC 6.66 10^3/uL (4.4-10.8)
[2021-07-19 16:05] LABS: ALT 27 U/L (16-63); AST 41 U/L (15-37); Albumin 2.8 g/dL (3.4-5.0); Alkaline Phosphatase 96 U/L (46-116); Anion Gap 6.7 mmol/L (3-11); BUN 15 mg/dL (7-18); Bilirubin, Total 0.5 mg/dL (0.2-1.0); CO2 32.3 mmol/L (21.0-32.0); CREATININE 0.9 mg/dL (0.70-1.30); Calcium 8.2 mg/dL (8.5-10.1); Chloride 103 mmol/L (98-107); Glucose 94 mg/dL (74-106); Potassium 3.8 mmol/L (3.5-5.1); Sodium 142 mmol/L (136-145); TSH 2.04 uIU/mL (0.36-3.74); Total Protein 6.5 g/dL (6.4-8.2)
[2021-07-19 16:23] LABS: FREE T4 1.27 ng/dL (0.76-1.46)
[2021-07-27] MEDS: Normal Saline Flush 10 ML SYR IVP (08:11)
[2021-07-27 08:24] LABS: Abs Immature Grans 0.02 10^3/uL (0.0-0.06); Absolute Basophil Count 0.03 10^3/uL (0.0-0.2); Absolute Eosinophil Count 0.13 10^3/uL (0.0-0.7); Absolute Lymphocyte Count 1.47 10^3/uL (1.2-3.4); Absolute Monocyte Count 0.55 10^3/uL (0.1-0.8); Absolute Neutrophil Count 3.82 10^3/uL (1.2-6.7); Basophils % 0.5; Eosinophils % 2.2; HCT 33.5 % (40.0-50.0); HGB 10.5 g/dL (13.5-17.5); Immature Grans % 0.3; Lymphocytes % 24.4; MCHC 31.3 % (32.0-36.0); MCV 89 fL (80-95); MPV 10.1 fL (8.0-11.0); Monocytes % 9.1; Neutrophils % 63.5; Platelet Count 154 10^3/uL (130-400); RBC 3.75 10^6/uL (4.36-5.78); RDW 14.6 % (11.8-14.1); RDW-SD 46.6 fL; WBC 6.02 10^3/uL (4.4-10.8)
[2021-07-27 08:40] LABS: ALT 31 U/L (16-63); AST 28 U/L (15-37); Albumin 2.5 g/dL (3.4-5.0); Alkaline Phosphatase 117 U/L (46-116); Anion Gap 3.9 mmol/L (3-11); BUN 12 mg/dL (7-18); Bilirubin, Total 0.4 mg/dL (0.2-1.0); CO2 34.1 mmol/L (21.0-32.0); Calcium 8.1 mg/dL (8.5-10.1); Chloride 102 mmol/L (98-107); Glucose 95 mg/dL (74-106); Magnesium 1.7 mg/dL (1.8-2.4); Potassium 4.4 mmol/L (3.5-5.1); Sodium 140 mmol/L (136-145); Total Protein 5.9 g/dL (6.4-8.2)
== END 2021-07-27 23:59 | disposition home or self-care (01) ==
LOC: INF 02:05
PROVIDERS: PCP Nurse Practitioner Family; Visit Provider Internal Medicine Hematology & Oncology
DX: Z45.1 Encounter for adjustment and management of infusion pump (principal); C09.9 Malignant neoplasm of tonsil, unspecified; R26.81 Unsteadiness on feet
CPT/HCPCS: 36415; 36591; 80053; 96523; 82175; 82300; 82607; 82746; 83655; 83735; 83825; 84439; 84443; 85025

== ENCOUNTER 2021-08-10 15:13 | Outpatient (REF) | payer MEDICAID, SELFPAY | END 2021-08-10 15:14 | disposition home or self-care (01) | LOC: LBN 15:13 | PROVIDERS: PCP Nurse Practitioner Family; Visit Provider Internal Medicine Hematology & Oncology ==

== ENCOUNTER 2021-08-24 02:20 | Outpatient (RCR) | payer MEDICAID, SELFPAY ==
[2021-08-03 10:44] LABS: Abs Immature Grans 0.02 10^3/uL (0.0-0.06); Absolute Basophil Count 0.03 10^3/uL (0.0-0.2); Absolute Eosinophil Count 0.11 10^3/uL (0.0-0.7); Absolute Lymphocyte Count 1.08 10^3/uL (1.2-3.4); Absolute Monocyte Count 0.39 10^3/uL (0.1-0.8); Absolute Neutrophil Count 3.04 10^3/uL (1.2-6.7); Basophils % 0.6; Eosinophils % 2.4; HCT 33.8 % (40.0-50.0); HGB 10.8 g/dL (13.5-17.5); Immature Grans % 0.4; Lymphocytes % 23.1; MCH 28.1 pg (27.0-33.0); MCV 88 fL (80-95); MPV 9.2 fL (8.0-11.0); Monocytes % 8.4; Neutrophils % 65.1; Platelet Count 170 10^3/uL (130-400); RBC 3.85 10^6/uL (4.36-5.78); RDW 14.3 % (11.8-14.1); RDW-SD 45.1 fL; WBC 4.67 10^3/uL (4.4-10.8)
[2021-08-03] MEDS: Normal Saline Flush 10 ML SYR IVP (10:44)
[2021-08-03 11:09] LABS: ALT 25 U/L (16-63); AST 28 U/L (15-37); Albumin 2.9 g/dL (3.4-5.0); Alkaline Phosphatase 94 U/L (46-116); Anion Gap 8.1 mmol/L (3-11); BUN 17 mg/dL (7-18); Bilirubin, Total 0.5 mg/dL (0.2-1.0); CO2 33.9 mmol/L (21.0-32.0); CREATININE 1.1 mg/dL (0.70-1.30); Calcium 8.2 mg/dL (8.5-10.1); Chloride 99 mmol/L (98-107); Glucose 84 mg/dL (74-106); Sodium 141 mmol/L (136-145); TSH 0.96 uIU/mL (0.36-3.74); Total Protein 6.2 g/dL (6.4-8.2)
[2021-08-03 12:43] LABS: Magnesium 1.7 mg/dL (1.8-2.4)
[2021-08-10 12:06] LABS: Abs Immature Grans 0.01 10^3/uL (0.0-0.06); Absolute Basophil Count 0.02 10^3/uL (0.0-0.2); Absolute Eosinophil Count 0.06 10^3/uL (0.0-0.7); Absolute Lymphocyte Count 0.66 10^3/uL (1.2-3.4); Absolute Monocyte Count 0.26 10^3/uL (0.1-0.8); Absolute Neutrophil Count 2.47 10^3/uL (1.2-6.7); Basophils % 0.6; Eosinophils % 1.7; HCT 29.6 % (40.0-50.0); HGB 9.7 g/dL (13.5-17.5); Immature Grans % 0.3; MCH 28.4 pg (27.0-33.0); MCHC 32.8 % (32.0-36.0); MCV 87 fL (80-95); MPV 9.7 fL (8.0-11.0); Monocytes % 7.5; Neutrophils % 70.9; Platelet Count 119 10^3/uL (130-400); RBC 3.41 10^6/uL (4.36-5.78); RDW 14.3 % (11.8-14.1); RDW-SD 44.8 fL; WBC 3.48 10^3/uL (4.4-10.8)
[2021-08-10 12:20] LABS: ALT 20 U/L (16-63); AST 25 U/L (15-37); Albumin 2.9 g/dL (3.4-5.0); Alkaline Phosphatase 70 U/L (46-116); BUN 21 mg/dL (7-18); Bilirubin, Total 0.5 mg/dL (0.2-1.0); CREATININE 1.2 mg/dL (0.70-1.30); Calcium 7.6 mg/dL (8.5-10.1); Chloride 99 mmol/L (98-107); Glucose 84 mg/dL (74-106); Magnesium 1.1 mg/dL (1.8-2.4); Sodium 140 mmol/L (136-145)
[2021-08-10 12:32] LABS: Potassium 2.4 mmol/L (3.5-5.1)
[2021-08-17 10:47] LABS: Abs Immature Grans 0.01 10^3/uL (0.0-0.06); Absolute Basophil Count 0.02 10^3/uL (0.0-0.2); Absolute Eosinophil Count 0.01 10^3/uL (0.0-0.7); Absolute Lymphocyte Count 0.42 10^3/uL (1.2-3.4); Absolute Monocyte Count 0.26 10^3/uL (0.1-0.8); Absolute Neutrophil Count 1.43 10^3/uL (1.2-6.7); Basophils % 0.9; Eosinophils % 0.5; HCT 29.7 % (40.0-50.0); HGB 9.6 g/dL (13.5-17.5); Immature Grans % 0.5; Lymphocytes % 19.5; MCH 28.1 pg (27.0-33.0); MCHC 32.3 % (32.0-36.0); MCV 87 fL (80-95); MPV 9.7 fL (8.0-11.0); Monocytes % 12.1; Neutrophils % 66.5; RBC 3.42 10^6/uL (4.36-5.78); RDW 14.6 % (11.8-14.1); RDW-SD 44.3 fL; WBC 2.15 10^3/uL (4.4-10.8)
[2021-08-17] MEDS: Normal Saline Flush 10 ML SYR IVP (10:51)
[2021-08-17 11:10] LABS: ALT 20 U/L (16-63); AST 22 U/L (15-37); Alkaline Phosphatase 57 U/L (46-116); Anion Gap 9.2 mmol/L (3-11); BUN 17 mg/dL (7-18); Bilirubin, Total 0.7 mg/dL (0.2-1.0); CO2 33.8 mmol/L (21.0-32.0); CREATININE 1.4 mg/dL (0.70-1.30); Calcium 7.1 mg/dL (8.5-10.1); Chloride 95 mmol/L (98-107); Estimated GFR 53.22 (mL/min/1.73m2); Glucose 87 mg/dL (74-106); Magnesium 0.9 mg/dL (1.8-2.4); Sodium 138 mmol/L (136-145); Total Protein 6.1 g/dL (6.4-8.2)
[2021-08-17 11:14] LABS: Diff Comment Diff Reviewed; Hypochromasia 2+; Platelet Count 94 10^3/uL (130-400)
[2021-08-17 11:20] LABS: Potassium 2.3 mmol/L (3.5-5.1)
[2021-08-24] MEDS: Normal Saline Flush 10 ML SYR IVP (10:40)
[2021-08-24 10:52] LABS: Abs Immature Grans 0.01 10^3/uL (0.0-0.06); Absolute Basophil Count 0.01 10^3/uL (0.0-0.2); Absolute Eosinophil Count 0.01 10^3/uL (0.0-0.7); Absolute Lymphocyte Count 0.59 10^3/uL (1.2-3.4); Absolute Monocyte Count 0.22 10^3/uL (0.1-0.8); Absolute Neutrophil Count 1.07 10^3/uL (1.2-6.7); Basophils % 0.5; Eosinophils % 0.5; HCT 28.4 % (40.0-50.0); HGB 9.2 g/dL (13.5-17.5); Immature Grans % 0.5; Lymphocytes % 30.9; MCH 28.2 pg (27.0-33.0); MCHC 32.4 % (32.0-36.0); MCV 87 fL (80-95); MPV 9.5 fL (8.0-11.0); Monocytes % 11.5; Neutrophils % 56.1; RBC 3.26 10^6/uL (4.36-5.78); RDW 15.4 % (11.8-14.1); RDW-SD 47.6 fL
[2021-08-24 11:07] LABS: ALT 20 U/L (16-63); AST 22 U/L (15-37); Albumin 3.1 g/dL (3.4-5.0); Alkaline Phosphatase 61 U/L (46-116); Anion Gap 7.4 mmol/L (3-11); BUN 27 mg/dL (7-18); Bilirubin, Total 0.4 mg/dL (0.2-1.0); CO2 34.6 mmol/L (21.0-32.0); CREATININE 1.6 mg/dL (0.70-1.30); Calcium 7.1 mg/dL (8.5-10.1); Chloride 97 mmol/L (98-107); Estimated GFR 45.62 (mL/min/1.73m2); Glucose 90 mg/dL (74-106); Magnesium 0.9 mg/dL (1.8-2.4); Potassium 3.3 mmol/L (3.5-5.1); Sodium 139 mmol/L (136-145); Total Protein 6.2 g/dL (6.4-8.2)
[2021-08-24 11:19] LABS: Diff Comment Diff Reviewed; RBC Morphology Normal
[2021-08-24 11:20] LABS: Platelet Count 82 10^3/uL (130-400)
[2021-08-24 11:29] LABS: WBC 1.91 10^3/uL (4.4-10.8)
== END 2021-08-26 23:59 | disposition home or self-care (01) ==
LOC: INF 02:20
PROVIDERS: PCP Nurse Practitioner Family; Visit Provider Internal Medicine Hematology & Oncology
DX: Z45.2 Encounter for adjustment and management of vascular access device (principal); C09.9 Malignant neoplasm of tonsil, unspecified
CPT/HCPCS: 36591; 80053; 83735; 84443; 85025

== ENCOUNTER 2021-09-03 15:03 | Inpatient (IN) | payer MEDICAID, SELFPAY ==
[2021-09-03] VITALS (61 sets, daily range): BP systolic 103–157; BP diastolic 50–94; PULSE 65–93; RESP 9–22; TEMP 37.3–38.2; O2SAT 88–100
[2021-09-03] MEDS: Patch Removal 1 EACH TP (16:00)
[2021-09-03] MEDS: Naloxone 0.4 MG/ML VIAL IVP (16:08)
[2021-09-03 16:40] LABS: Ammonia < 10 umol/L (11-32)
--- NOTE | 2021-09-03 17:08 | PCNE_ITS ---
Date of service: 09/03/21 Time of Service: 17:08 History of Present Illness Narrative: Justin is a very pleasant? 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 He first noticed the right facial sw elling and neck mass in the fall of 2019. He reports that he was seen at [facility] ED and at that time. He did not seek care again until 11/2020. He was also on apixiban for IJ thrombosis extending into sigmoid sinus seen on RT planning CT 07/07/2021. I went to Justin's home for his scheduled home visit and there was no answer at the door. His came home and reported that he is at the hospital and unresponsive at this time. He was transferred from [facility] after they gave him oxycodone 10 mg. After he was admitted to the floor, he was given narcan and moved to the ICU. I went to the hospital for his visit. He has pancytopenia. His WBC is 1.02, ANC 0.55. His reports that he has been vomiting for days at home. He reported to her that he was vomiting blood. His Hgb is low at 7.7. His electrolytes are low. She felt that he was dehydrated and urged him to go to the ER earlier in the week but he would not go. She reports that his pain has been poorly controlled. He has been on fentanyl 100 mcg/hr. She also reports that he was falling at home. He has lost >100 pounds over the last 2 years. He denies taking any pain meds prior to his oncology visit. He was febrile at the time of his visit in the ICU. He opens his eyes briefly to verbal stimuli. He answers very few questions. He is tearful talking about his , he wants to see her. Staff is awaiting a negative COVID test before she can go in to see him. Renate reports that he has not been able to take many of his medications or weeks including his apixiban. He was too ill to discuss goals. Discussed with that he may improve but it is also possible that he is nearing the end of his life. Assessment and Plan Assessment and plan (1) Head and neck cancer: (2) Cancer related pain: (3) Abnormal weight loss: (4) DNI (do not intubate): (5) DNR (do not resuscitate): (6) Dysphagia: (7) Vomiting: Status: Acute (8) Palliative care patient: Status: Acute Assessment and plan: Justin is a very pleasant? 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 He first noticed the right facial swelling and neck mass in the fall of 2019. He reports that he was seen at [facility] ED and at that time. He did not seek care again until 11/2020. He has also been on apixiban for IJ thrombosis extending into sigmoid sinus seen on RT planning CT 07/07/2021 (not currently taking per ) He was seen at [facility] today and directly admitted to Med/Surg for pain control. He was found to be unresponsive and given narcan. He was moved to the ICU. He was febrile at the time of his visit. He was unable to fully participate in the visit. He was tearful, asking for his . Discussed with Renate that he may improve but he may also be nearing the end of his life. Discussed bigger picture, that he is declining overall. She verbalizes understanding. She reports that he has been declining at home. He is losing weight, having more pain, weaker, falling. We will see how he does over the next couple of days. Discussed the option of home on hospice if he does not appear to be improving or if it is in line with his goals. Palliative will continue to follow. I will plan to see him next week if he is still in the hospital or at home. He may need to be seen prior to the end of the week by one of my Palliative colleagues. His is advised to reach out with any concerns. Review of Systems Narrative: States he is cold. Denies pain. Unable to participate in full ROS due to decreased alertness. PFSH All Active Problems DVT prophylaxis (Acute) Dehydration (Acute) Neutropenic fever (Acute) Upper GI bleeding (Acute) Vomiting (Acute) Palliative care patient (Acute) Medical History Abnormal weight loss Cancer related pain DNI (do not intubate) DNR (do not resuscitate) Dysphagia Head and neck cancer Hypertension Physician orders for life-sustaining treatment (POLST) form indicates patient wish for [id number] status Tonsil cancer Trismus Surgical History History of oral surgery Hx of knee surgery Social History Smoking/Tobacco Use Status: Current every day Tobacco Type: cigarettes Smoking packs per day: 0.25 Smoking cigarettes per day: 5.0 Smoking risk assessment performed?: Yes Alcohol Intake: former Drug use: Occasionally Substance use type: former substance user and marijuana What is your relationship status?: Panel score (0-1 are the most socially isolated patients): 1 Do you feel safe at home: Yes Do you feel safe in your relationship?: Yes Exam Narrative Exam Narrative: General: laying in bed in the ICU with eyes closed, opens eyes briefly but cannot engage in conversation. He is tearful, asking for his . Appears ill. Skin is pale. HEENT: atraumatic, blood at the corner of his mouth, MM dry. Neck: supple, no JVD. Respiratory: respirations appear even and unlabored, + frequent cough. GI: + feeding tube Extremities: moving all 4 extremities, no edema. Results Last Vital Signs Temp 37.3 C 09/03/21 16:00 Pulse 77 09/03/21 16:00 Resp 12 09/03/21 16:00 BP 157/82 H 09/03/21 16:00 Pulse Ox 100 09/03/21 16:00 Labs Result diagrams: 09/04/21 06:00 09/04/21 06:00 Labs: Laboratory Results - last 24 hr 09/03/21 16:24 Ammonia < 10 L
--- NOTE | 2021-09-03 17:30 | DI.RAD_ITS ---
Exam(s) XR PORTABLE CHEST AP EXAM: XR PORTABLE CHEST AP CLINICAL HISTORY: dysphagia TECHNIQUE: 2D digital imaging was performed of the chest. One image was obtained. An AP view was ob tained. COMPARISON: No exams were available for comparison FINDINGS: MEDIASTINUM: Normal. HEART: Normal. PULMONARY VASCULATURE: Normal. LUNGS: Clear. PLEURAL SPACE: No pleural effusion or pneumothorax. BONE:Within normal limits for the patient's age. OTHER FINDINGS:There is a central venous catheter enters on the left side. The tip of the catheter i s poorly visualized but appears to lie in the superior vena cava. IMPRESSION: 1. No acute pulmonary findings. 2. Tip of the central venous catheter is poorly visualized. A repeat chest x-ray may be obtained to confirm positioning if clinically appropriate. DATA REPOSITORY: RADIATION DOSE DELIVERED:
--- NOTE | 2021-09-03 17:30 | DI.RAD_ITS ---
Exam(s) XR ABDOMEN FLAT PLATE EXAM: 2D digital imaging was performed. CLINICAL HISTORY: Vomiting / g-tube. COMPARISON: No exams were available for comparison TECHNIQUE: Supine views of the abdomen performed. Two images were obtained. FINDINGS: BOWEL GAS PATTERN: Nondistended. There is a moderate amount of stool within the colon. CALCIFICATIONS: No radiopaque calcifications. OSSEOUS STRUCTURES: Normal for age. OTHER FINDINGS: There is tubing overlying the left upper quadrant. This may represent the G-tube. IMPRESSION: 1. Nonobstructive bowel gas pattern. Moderate amount of stool in the colon. 2. Tubing overlying the left upper quadrant of the abdomen which may represent the G-tube. DATA REPOSITORY: RADIATION DOSE DELIVERED:
--- NOTE | 2021-09-03 17:35 | NUR.NOTE ---
Abdominal flat plate x-ray is completed.Nursing Note:
[2021-09-03] MEDS: Lactated Ringers 1,000 ML 150 ML IV (17:36)
--- NOTE | 2021-09-03 17:39 | NUR.NOTE ---
RN sets up suction in room.Nursing Note:
--- NOTE | 2021-09-03 17:39 | NUR.NOTE ---
Palliative care consult is performed.Nursing Note:
--- NOTE | 2021-09-03 17:42 | NUR.NOTE ---
Patient arrives in ICU at 16:45 from Med/Surg. Chiqui Canela indicates that she took off a 100mcg Fentaynl patch and gave 0.4mg of Narcan with good effect.Nursing Note:
--- NOTE | 2021-09-03 17:45 | HPE_ITS ---
Date of service: 09/03/21 Time of Service: 17:45 Assessment and Plan Assessment and plan (1) Upper GI bleeding: Status: Acute Assessment and plan: will give him protonix iv 80 mg IV bid, transfuse 1 unit of PRBC tonight and monitor hemogram. Goal is for Hb over 8 gm. critical care time spent including inteviewing and examination of patient, discussion w/ attending, nursing and reviewing relevant studies and putting together plan of care involved over 1 hour. (2) Neutropenic fever: Status: Acute Assessment and plan: unclear source, given his vomiting he may have aspirated particularly since he was obtunded on admission. Unclear as to why he became so obtunded. Patient had been on fentanyl patch at 100 mcg and reportedly was not well controlled in his pain. Blood and urine cultures have been sent. CXR and KUB did not demonstrated any pathology. Patient has been started on Cefepime and Vancomycin empirically. Nasal swab for MRSA has been collected. (3) Head and neck cancer: Assessment and plan: s/p radiation and chemotherapy. he has been currently on palliative chemotherapy. He has evidence of mucositis. I have ordered penciclovir for his labial ulcer and viscous lidocaine for his mouth. (4) Palliative care patient: Status: Acute Assessment and plan: Palliative care was consulted and patient was seen by Irene Chakraborty this evening. Her input to his care is greatly appreciated. Patient is DNR/DNI per his prior advanced directives. (5) Vomiting: Status: Acute Assessment and plan: unclear as to the cause of his hyperemesis. KUB did not reveal any obstruction although he has several mildly distended air filled small bowel loops. May need CT of his abdomen in the morning if he is not improving. I have put him on Reglan and started protonix (6) Dehydration: Status: Acute Assessment and plan: he has hypokalemia and dehydration from last few days of vomiting. I will start him on iv fluids in addition to giving PRBC tonight. monitor intake/output and BMP. Reattempt enteral nutrition in the morning if no vomiting overnight. (7) DVT prophylaxis: Status: Acute Assessment and plan: not candidate for chemoprophylaxis in setting of GI bleeding. will use SCD's instead History of Present Illness History of Present Illness Chief Complaint: vomiting blood, poor oral intake, un controlled pain Narrative: 51-year-old male with a history of advanced head neck SCC cancer primary source was his right tonsil. He presented late in his course w/ facial swelling and neck mass but had a response to chemotherapy and radiation. Patient is followed by Dr. Jonas from [facility]. Per Dr. Jonas patient's not been able to taking it anything orally for the last 3 to 4 days due to increased pain from his mouth and throat. Patient has a G-tube in place but despite the G tube, he has been intolerant of enteral intake. Dr. Jonas called me to requested direct admission. I was told by Dr. Jonas that the patient was hemodynamically stable and afebrile. They drawn labs earlier today that showed him to be neutropenic with a total white count 1200 ANC of 520 and hemoglobin of 7.7 g. I was told that his blood count was stable. I agreed to accept the patient as it sounds like he just needed IV fluids and better pain control. Patient was already on a Duragesic patch 100 mcg but they were having trouble controlling his pain. Patient received oxycodone 10 mg in the cancer center. Upon arrival to the medical/surgical floor the patient was obtunded having sonorous respirations and despite noxious stimulation with sternal rub and clavicular rub cannot get the patient to fully awaken. He would open his eyes and wince but would not focus or look at me. Patient was given Narcan 0.4 mg IV push at which point he became more arousable and now he is fully awake. Patient is now uncooperative with nursing and laboratory staff. He is angry because blood work was drawn earlier and now he requires further blood cultures because he is now running a fever. He is angry that his cannot come in and see him until his COVID swab comes back negative. After his COVID test came back negative and his was able to visit with him the patient became more amenable to treatment. Patient is agreeable to acccepting a unit of packed red cells for tonight to treat his anemia. With regard to his upper GI bleeding he has been vomiting up dark blood for 3 days. He denies any abdominal pain although when he was obtunded when I examined his belly was very tender. Presently he is denying abdominal pain. He denies use of NSAIDs and denies use of alcohol and denies any prior history of peptic ulcer disease. Review of his blood counts shows that he has been getting progressively anemic over the last 3 weeks. His baseline hemoglobin is between 9.5 and 10 g but over the past month has been dropping and in fact 3 days ago his hemoglobin was 9 g and is down to 7.7. While the patient was reportedly afebrile when I receive report from Dr. Jonas. After admission he spiked a temp of 38.2. We will get a set of blood cultures from his [facility] but unfortunately will not allow us to draw any peripheral blood work. Review of Systems Unobtainable due to mental condition PFSH All Active Problems (Updated 09/03/21 @ 22:57 by Magdaleno Amaya MD) DVT prophylaxis (Acute) Dehydration (Acute) Neutropenic fever (Acute) Upper GI bleeding (Acute) Vomiting (Acute) Palliative care patient (Acute) Medical History Abnormal weight loss Cancer related pain DNI (do not intubate) DNR (do not resuscitate) Dysphagia Head and neck cancer Hypertension Physician orders for life-sustaining treatment (POLST) form indicates patient wish for [id number] status Tonsil cancer Trismus Surgical History History of oral surgery Hx of knee surgery Social History Smoking/Tobacco Use Status: Current every day Tobacco Type: cigarettes Smoking packs per day: 0.25 Smoking cigarettes per day: 5.0 Smoking risk assessment performed?: Yes Alcohol Intake: former Drug use: Occasionally Substance use type: former substance user and marijuana What is your relationship status?: Panel score (0-1 are the most socially isolated patients): 1 Do you feel safe at home: Yes Do you feel safe in your relationship?: Yes Meds Allergies and Home Medications Allergies Allergy/AdvReac Type Severity Reaction Status Date / Time mercury (elemental) Allergy Verified 07/15/21 10:44 shellfish derived Allergy Verified 07/15/21 10:44 Home Medications Medication Instructions Recorded Confirmed Type acetaminophen 500 mg capsule 1,000 mg PO Q6H PRN 01/28/21 08/06/21 History food supplemt, lactose-reduced 237 ml PO TID 01/28/21 08/06/21 History (High-Protein Nutritional Shake oral liquid) benzonatate 100 mg capsule 100 mg PO TID PRN cough #60 caps 03/18/21 08/06/21 Rx prochlorperazine maleate 5 mg 5 mg PO QID PRN nausea and 03/18/21 08/06/21 Rx tablet vomiting #60 tabs hydromorphone 2 mg tablet 2 mg PO Q6H PRN pain #60 tabs 04/23/21 08/06/21 Rx gabapentin 100 mg capsule 100 - 200 mg PO QHS #60 caps 05/28/21 08/06/21 Rx ondansetron 4 mg disintegrating 4 mg PO Q8H PRN nausea and 05/28/21 08/06/21 Rx tablet vomiting #30 tabs amoxicillin 500 mg capsule 500 mg PO TID 07/15/21 08/06/21 History apixaban 5 mg tablet (Eliquis) 5 mg PO BID 07/15/21 08/06/21 History codeine 10 mg-guaifenesin 100 mg/5 10 ml PO Q4H PRN cough #120 mL 07/15/21 08/06/21 Rx mL oral liquid methylphenidate HCl 5 mg tablet 5 mg PO DAILY #14 tabs 08/06/21 08/06/21 Rx (Ritalin) fentanyl 100 mcg/hr transdermal 1 patch transdermal Q72H #10 ea 08/12/21 09/03/21 Rx patch oxycodone 5 mg/5 mL oral solution 5 ml PO Q3H PRN Pain 09/03/21 09/03/21 History Exam Narrative Exam Narrative: When I first evaluate the patient on the medical/surgical floor patient was obtunded with sonorous respirations. He was having trouble controlling his oral secretions and had some thick purulent looking secretions he was coughing up. He has obvious mucositis of his mouth. He is now able to control his secretions now that he is more awake after given narcan Oropharynx is difficult to evaluate as he is unable to open up his mouth fully. I did not see any obvious thrush. He has a cold sore over the right corner of his lip He has a red rash over his neck and the right side of his face probably from radiation treatment. Skin is very dry. Lungs are clear to auscultation Heart is regular rate and rhythm Abdomen soft with some mild epigastric tenderness no guarding or rebound he has normal bowel sounds he has a G-tube in place. Extremities without peripheral cyanosis or edema. No open sores. Neuro exam grossly intact no focal cranial nerve deficits no focal motor deficits. Results Labs Result diagrams: 09/03/21 23:00 Labs: Laboratory Results - last 24 hr 09/03/21 16:24 Ammonia < 10 L Last Vital Signs Temp 38.2 C H 09/03/21 17:40 Pulse 79 09/03/21 17:40 Resp 17 09/03/21 17:40 BP 141/81 H 09/03/21 17:40 Pulse Ox 98 09/03/21 17:40
[2021-09-03 18:19] LABS: Source Nasal/Nares
--- NOTE | 2021-09-03 18:22 | DI.VRAD_ITS ---
PROCEDURE INFORMATION: Exam: XR Chest Exam date and time: 09/03/2021 5:07 PM Age: 51 years old Clinical indication: Other: Dysphagia; Additional info: PT in icu TECHNIQUE: Imaging protocol: Radiologic exam of the chest. Views: 1 view. COMPARISON: CT NECK W 09/18/2019 9:23 PM FINDINGS: Limitations: The exam is limited by positioning and overlying leads. Tubes, catheters and devices: Left approach central line is poorly visualized; tip likely terminates in expected region of cavoatrial junction. Lungs: No focal consolidation. Normal pulmonary vascularity. Pleural spaces: Unremarkable. No pleural effusion. No pneumothorax. Heart/Mediastinum: Top-normal size cardiac silhouette. Vasculature: Tortuous atheromatous aorta. Bones/joints: Degenerative change of the spine. IMPRESSION: 1. Left approach central line is poorly visualized; tip likely terminates in expected region of cavoatrial junction. Consider repeat imaging with overpenetrated technique and collimation to confirm positioning if clinically warranted. 2. No certain etiology for dysphagia. No focal consolidation or adali CHF. Dictated and Authenticated by: Federica Harper MD. Ordering:FRANCIS White MD
--- NOTE | 2021-09-03 18:25 | DI.VRAD_ITS ---
PROCEDURE INFORMATION: Exam: XR Abdomen Exam date and time: 09/03/2021 5:10 PM Age: 51 years old Clinical indication: Vomiting and other: G-tube; Additional info: PT in icu TECHNIQUE: Imaging protocol: Radiologic exam of the abdomen. Views: Frontal supine view of the abdomen. 1 View. COMPARISON: CR XR PORTABLE CHEST AP 09/03/2021 5:07 PM FINDINGS: Tubes, catheters and devices: Tubing overlying the left upper quadrant likely consistent with G-tube. Gastrointestinal tract: Several mildly distended air-filled small bowel loops. Nondistended air and stool filled large bowel. Bones/joints: Mild degenerative change of the spine. Left-sided surgical clips. Other findings: Limited by overlying structures. IMPRESSION: Several mildly distended air-filled small bowel loops. Nondistended air and stool filled large bowel. Dictated and Authenticated by: Federica Harper MD. Ordering:FRANCIS White MD
[2021-09-03] MEDS: Pantoprazole 40 MG VIAL 80 MG IVP (18:58)
[2021-09-03] MEDS: diphenhydrAMINE 50 MG/ML VIAL 25 MG IVP (19:01)
[2021-09-03] MEDS: HYDROmorphone 2 MG/ML SYR IVP ×2 (19:02→22:05)
[2021-09-03] MEDS: CEFEPIME 2 GM in Normal Saline 100 ML IVPB (19:08)
[2021-09-03 19:09] LABS: COVID-19 PCR Negative (Negative)
[2021-09-03] MEDS: Normal Saline Flush 10 ML SYR ×2 (19:14→19:15)
[2021-09-03] MEDS: ACETAMINOPHEN 1,000 MG/100 ML BTL 400 MG IVPB (19:47)
[2021-09-03] MEDS: VANCOMYCIN 1,250 MG in Normal Saline 250 ML 166.667 MG IV (21:09)
[2021-09-03 22:32] LABS: Bilirubin Negative (Negative); Blood Negative (Negative); Clarity Clear (Clear); Glucose Negative (Negative); Ketones 15 mg/dL (Negative); Leukocyte Esterase Negative (Negative); Nitrite Negative (Negative); Specific Gravity 1.015 (1.005-1.025); Urobilinogen 0.2 EU/dL (Up TO 0.2); pH 7.5 (5-8)
[2021-09-03] MEDS: Lidocaine 2% Viscous 15 ML CUP PO (22:56)
[2021-09-03 23:22] LABS: HCT 31.2 % (40.0-50.0); HGB 10.4 g/dL (13.5-17.5)
[2021-09-03] MEDS: POTASSIUM CHLORIDE 20 MEQ/100 ML BAG 50 MEQ IVPB (23:32)
[2021-09-04] VITALS (183 sets, daily range): BP systolic 117–164; BP diastolic 62–93; PULSE 64–92; RESP 9–40; TEMP 36.7–37.7; O2SAT 90–99
--- NOTE | 2021-09-04 | DI.RAD_ITS ---
Exam(s) XR PORTABLE CHEST AP EXAM: XR PORTABLE CHEST AP CLINICAL HISTORY: Neutorpenic fever TECHNIQUE: 2D digital imaging was performed of the chest. Two images were obtained. AP views were obtained. COMPARISON: CR,XR XR PORTABLE CHEST AP from 09/03/2021 FINDINGS: MEDIASTINUM: Normal. HEART: Normal. PULMONARY VASCULATURE: Normal. LUNGS: Clear. PLEURAL SPACE: No pleural effusion or pneumothorax. BONE:Within normal limits for the patient's age. OTHER FINDINGS:The tip of the central venous catheter is in good position in the superior vena cava. IMPRESSION: No acute pulmonary findings. DATA REPOSITORY: RADIATION DOSE DELIVERED:
[2021-09-04] MEDS: Lactated Ringers 1,000 ML 150 ML IV (00:21)
[2021-09-04] MEDS: HYDROmorphone 2 MG/ML SYR IVP ×3 (01:18→19:45)
[2021-09-04] MEDS: ACETAMINOPHEN 1,000 MG/100 ML BTL 400 MG IVPB ×3 (02:18→17:41)
[2021-09-04] MEDS: CEFEPIME 2 GM in Normal Saline 100 ML IVPB ×3 (02:37→17:41)
[2021-09-04] MEDS: Pantoprazole 40 MG VIAL 80 MG IVP ×2 (05:51→17:41)
[2021-09-04 06:59] LABS: Absolute Basophil Count 0.01 10^3/uL (0.0-0.2); MCH 29.2 pg (27.0-33.0); MCHC 33.2 % (32.0-36.0); MCV 88 fL (80-95); MPV 9.7 fL (8.0-11.0); RDW 16.5 % (11.8-14.1); RDW-SD 51.8 fL
[2021-09-04 07:07] LABS: Anion Gap 7.5 mmol/L (3-11); BUN 21 mg/dL (7-18); CO2 34.5 mmol/L (21.0-32.0); CREATININE 1.2 mg/dL (0.70-1.30); Calcium 7.6 mg/dL (8.5-10.1); Chloride 98 mmol/L (98-107); Glucose 72 mg/dL (74-106); Potassium 3.2 mmol/L (3.5-5.1); Sodium 140 mmol/L (136-145)
[2021-09-04 07:29] LABS: Platelet Count 100 10^3/uL (130-400)
[2021-09-04 07:33] LABS: Absolute Eosinophil Count 0.04 10^3/uL (0.0-0.7); Absolute Lymphocyte Count 0.23 10^3/uL (1.2-3.4); Absolute Monocyte Count 0.29 10^3/uL (0.1-0.8); Absolute Neutrophil Count 0.55 10^3/uL (1.2-6.7); Bands % 5; Metamyelocytes % 1
[2021-09-04 07:34] LABS: Diff Comment Manual Differential; Hypochromasia 2+
[2021-09-04 07:35] LABS: HGB 7.3 g/dL (13.5-17.5); WBC 1.17 10^3/uL (4.4-10.8)
[2021-09-04] MEDS: VANCOMYCIN/WATER (PEG) 1.25 GM/250 ML BAG IV ×2 (08:11→20:45)
--- NOTE | 2021-09-04 09:32 | NUR.NOTE ---
RN speaks to Dam Attendant about neccesity of starting feeding. Dam Attendant will look into same.Nursing Note:
[2021-09-04 09:51] LABS: Lab Add On Test COMPLETE
[2021-09-04 09:58] LABS: Magnesium 1.2 mg/dL (1.8-2.4)
--- NOTE | 2021-09-04 10:18 | NUR.NOTE ---
in to visit.Nursing Note:
--- NOTE | 2021-09-04 11:11 | NS.NUTBLAN_ITS ---
Date of service: 09/04/21 Time of Service: 11:11 Nutritional Consult ASSESSMENT: Mr. Richardson presents with ileus. Had some vomiting. He has not had any feedings for four days. His weight in 09/2020 was 122 kg. Then in 02/2021 he was 102 kg. Today his weight was 81.8 kg. He has lost 33% of his weight in one year and 19.6% of his weight in 6 months. Estimated energy needs are 1800 kcal/day (REE x 1.2) Estimated protein needs: 81 g to 97 g/day (1.0 to 1.2 g/kg/day) Estimated fluid needs: 1800 ml/day (1.0 ml/kcal provided per day) Of note: Allergic to shellfish NUTRITIONAL DIAGNOSIS: Severe malnutrition in the context of acute illness related as evidenced by weight loss and poor intake noted above. INTERVENTION: Recommendations for tube feedings: Start Osmolite 1.2 molly full strength at 30 ml/hr x 4 hours. If tolerated, advance feeding by 15 ml/hr every 4 hours until goal rate of 63 ml/hr is reached. Goal feeding regimen is Osmolite 1.2 molly con tinuously @ 63 ml/hr. This feeding provides 1814 kcals and 83 grams of protein. This regimen also provides 1200 ml of free water. He may need an additional 600 ml/day of free water. He may end up needing additional protein. Let's see how he tolerates this feeding. MONITORING AND EVALUATION: Will monitor tolerance to feeding and weight. Will evaluate nutrition care plan ongoing and adjust as needed. Time Spent in Nutritional Counseling and Treatment: 0
--- NOTE | 2021-09-04 11:42 | PDOC.CMIN ---
- If Service Date Differs Date of service: 09/04/21 Time of Service: 11:42 Care Management Initial Assess REASON FOR HOSPITALIZATION:: Upper GI bleeding, dehydration, nausea, intractable pain PAST MEDICAL HISTORY/PAST SURGICAL HISTORY:: All Active Problems. DVT prophylaxis (Acute). Dehydration (Acute). Neutropenic fever (Acute). Upper GI bleeding (Acute). Vomiting (Acute). Palliative care patient (Acute). Medical History. Abnormal weight loss. Cancer related pain. DNI (do not intubate). DNR (do not resuscitate). Dysphagia. Head and neck cancer. Hypertension. Physician orders for life-sustaining treatment (POLST) form indicates patient wish for [id number] status. Tonsil cancer. Trismus. Surgical History. History of oral surgery. Hx of knee surgery PREVIOUS FUNCTIONAL STATUS/SOCIAL/FAMILY SUPPORTS:: Debra, who goes by Justin, lives in [facility] with his , Renate. He was independent prior to his cancer diagnosis/treatment in 11/2020. His , Renate, is very supportive. Renate's daughter is also living with them, and assists with his care during the day while Renate is working. CURRENT FUNCTIONAL STATUS:: Justin was lying in bed when CM met with him. His , Renate, was visiting. Justin did not make eye contact, and interacted minimally. He was receiving a unit of blood. Renate was pleasant and engaged in conversation. She asked about recommendations for tube feedings at home. Justin reported that his goal is to remain home for as long as he can. He has support from Palliative care, who visited him yesterday. He had a consult with a wound nurse who arrived while CM was visiting. CM will continue to follow. ADVANCE DIRECTIVES:: COLST on file. Has patient been provided with info about the portal/API?: Yes Did the patient sign up for the portal?: No CODE STATUS:: DNR/DNI INSURANCE COVERAGE / FINANCIAL ISSUES:: ASTRID CURRENT HOME/COMMUNITY SERVICES/EQUIPMENT:: No current services. PRIMARY CARE PHYSICIAN:: unknown POTENTIAL DISCHARGE NEEDS:: Evaluations for further needs, follow up appointments. PATIENT/FAMILY EDUCATION NEEDS:: Review discharge instructions and limitations, discussion of self care needs and goals of care. ANTICIPATED BARRIERS TO DISCHARGE:: None identified. TRANSPORTATION:: Via private vehicle by his . PLAN:: Debra is being closly monitored and treated at ICU level of care. He will likely return home when medically cleared. He will follow up with his PCP and discharge plan of care. CM will continue to follow.
--- NOTE | 2021-09-04 13:38 | NUR.NOTE ---
Nursing Note: Second unit of packed red blood cells is commenced.
[2021-09-04] MEDS: Magnesium Citrate 300 ML BTL 150 ML PO (14:31)
--- NOTE | 2021-09-04 14:48 | NUR.NOTE ---
Electronics Test Engineer recommends Osmolite 1.2 feed be given starting at 30ml/hr and then advance 15ml every 3 to 4 hours until the goal of 63ml/hr is reached. Said feed through the pegg tube shall be continuous.Nursing Note:
[2021-09-04] MEDS: MAGNESIUM SULFATE 4 GM/100 ML BAG IVPB (15:59)
[2021-09-04] MEDS: Normal Saline Flush 10 ML SYR ×3 (16:00→16:01)
--- NOTE | 2021-09-04 17:14 | W.PM.PROGNOT ---
Date of Service Date of service: 09/04/21 Time of Service: 17:15 Assessment and Plan Assessment and plan (1) Upper GI bleeding: Status: Acute Assessment and plan: will give him protonix iv 80 mg IV bid Transfused 1 unit on admission and another today. Goal is for Hb over 8 gm. Monitor. (2) Neutropenic fever: Status: Acute Assessment and plan: Unclear source, given his vomiting he may have aspirated particularly since he was obtunded on admission. Unclear as to why he became so obtunded. Patient had been on fentanyl patch at 100 mcg and reportedly was not well controlled in his pain. Blood and urine cultures pending. CXR and KUB did not demonstrated any pathology. Patient has been started on Cefepime and Vancomycin empirically. Nasal swab for MRSA pending. (3) Head and neck cancer: Assessment and plan: s/p radiation and chemotherapy. he has been currently on palliative chemotherapy. He has evidence of mucositis. I have ordered penciclovir for his labial ulcer and viscous lidocaine for his mouth. (4) Palliative care patient: Status: Acute Assessment and plan: Palliative care was consulted and seen. Her input to his care is greatly appreciated. Patient is DNR/DNI per his prior advanced directives. (5) Vomiting: Status: Acute Assessment and plan: Unclear as to the cause of his hyperemesis. KUB did not reveal any obstruction although he has several mildly distended air filled small bowel loops. May need CT of his abdomen in the morning if he is not improving. I have put him on Reglan and started protonix (6) Dehydration: Status: Acute Assessment and plan: he has hypokalemia and dehydration from last few days of vomiting. Cont IV fluids in addition to giving PRBCs. monitor intake/output and BMP. Initiate enteral nutrition . (7) DVT prophylaxis: Status: Acute Assessment and plan: not candidate for chemoprophylaxis in setting of GI bleeding. will use SCD's instead Subjective Subjective Patient reports: afebrile; denies diarrhea or vomiting Interval history since last seen: Minimally interacts. Exam Narrative Exam Narrative: Lying in bed. Awake. Opens eyes and nods yes/no. HEENT: herpetic lesion on lip. sclera clear. He has a red rash over his neck and the right side of his face probably from radiation treatment. Skin is very dry. Lungs are clear to auscultation Heart is regular rate and rhythm Abdomen soft with some mild epigastric tenderness no guarding or rebound he has normal bowel sounds he has a G-tube in place. Extremities without peripheral cyanosis or edema. No open sores. Objective Last Vital Signs Temp 37.4 C 09/04/21 14:18 Pulse 70 09/04/21 15:02 Resp 14 09/04/21 15:30 BP 156/85 H 09/04/21 15:02 Pulse Ox 95 09/04/21 15:30 Laboratory Results - last 24 hr 09/03/21 09/03/21 09/03/21 16:24 17:00 22:30 WBC RBC Hgb Hct MCV MCH MCHC RDW Plt Count MPV Immature Gran % Neutrophils % Band Neutrophils % Lymphocytes % Monocytes % Eosinophils % Basophils % Metamyelocytes % Nucleated RBC % Absolute Neutrophils Absolute Lymphocytes Absolute Monocytes Absolute Eosinophils Absolute Basophils RBC Morphology Hypochromasia Sodium Potassium Chloride Carbon Dioxide Anion Gap BUN Creatinine Estimated GFR/1.73 m2 Glucose Calcium Magnesium Urine Color Yellow Urine Clarity Clear Urine pH 7.5 Ur Specific [place] 1.015 Urine Protein Negative Urine Ketones 15 H Urine Blood Negative Urine Nitrite Negative Urine Bilirubin Negative Urine Urobilinogen 0.2 Ur Leukocyte Esterase Negative Urine Glucose Negative COVID-19 Source Nasal/Nares SARS-CoV-2 (PCR) Negative Add-On Test Request Patient ABO/Rh O Positive Antibody Screen NEGATIVE Crossmatch See Detail 09/03/21 09/04/21 09/04/21 23:13 06:00 06:00 WBC 1.17 L* RBC 2.50 L Hgb 10.4 L D 7.3 L D Hct 31.2 L 22.0 L MCV 88 MCH 29.2 MCHC 33.2 RDW 16.5 H Plt Count 100 L MPV 9.7 Immature Gran % 0.0 Neutrophils % 42.0 Band Neutrophils % 5 Lymphocytes % 20.0 Monocytes % 25.0 Eosinophils % 3.0 Basophils % 1.0 Metamyelocytes % 1 Nucleated RBC % 0.0 Absolute Neutrophils 0.55 L Absolute Lymphocytes 0.23 L Absolute Monocytes 0.29 Absolute Eosinophils 0.04 Absolute Basophils 0.01 RBC Morphology See Below Hypochromasia 2+ Sodium 140 Potassium 3.2 L Chloride 98 Carbon Dioxide 34.5 H Anion Gap 7.5 BUN 21 H Creatinine 1.2 Estimated GFR/1.73 m2 >= 60.00 Glucose 72 L Calcium 7.6 L Magnesium 1.2 L Urine Color Urine Clarity Urine pH Ur Specific [place] Urine Protein Urine Ketones Urine Blood Urine Nitrite Urine Bilirubin Urine Urobilinogen Ur Leukocyte Esterase Urine Glucose COVID-19 Source SARS-CoV-2 (PCR) Add-On Test Request Patient ABO/Rh Antibody Screen Crossmatch 09/04/21 06:47 WBC RBC Hgb Hct MCV MCH MCHC RDW Plt Count MPV Immature Gran % Neutrophils % Band Neutrophils % Lymphocytes % Monocytes % Eosinophils % Basophils % Metamyelocytes % Nucleated RBC % Absolute Neutrophils Absolute Lymphocytes Absolute Monocytes Absolute Eosinophils Absolute Basophils RBC Morphology Hypochromasia Sodium Potassium Chloride Carbon Dioxide Anion Gap BUN Creatinine Estimated GFR/1.73 m2 Glucose Calcium Magnesium Urine Color Urine Clarity Urine pH Ur Specific [place] Urine Protein Urine Ketones Urine Blood Urine Nitrite Urine Bilirubin Urine Urobilinogen Ur Leukocyte Esterase Urine Glucose COVID-19 Source SARS-CoV-2 (PCR) Add-On Test Request COMPLETE Patient ABO/Rh Antibody Screen Crossmatch
--- NOTE | 2021-09-04 19:23 | DI.VRAD_ITS ---
PROCEDURE INFORMATION: Exam: XR Chest Exam date and time: 09/04/2021 6:29 PM Age: 51 years old Clinical indication: Other: Neutorpenic fever TECHNIQUE: Imaging protocol: Radiologic exam of the chest. Views: 1 view. COMPARISON: XR PORTABLE CHEST AP 09/03/2021 5:07 PM FINDINGS: Limitations: The examination was exposed with lordotic patient positioning. Tubes, catheters and devices: There is an implanted Port-A-Cath in situ extending into the expected location of the superior vena cava. Lungs: No pulmonary consolidation is seen. Pleural spaces: No pleural effusion or pneumothorax is demonstrated. Heart/Mediastinum: Heart size is normal. The mediastinal contours appear normal. Bones/joints: The visualized bony structures appear grossly intact. Osteophytes are noted along the spinal margin. IMPRESSION: No active disease is seen in the chest. Dictated and Authenticated by: Shemar Rivera MD. Ordering:ROXIE Mcgraw MD
[2021-09-04] MEDS: Metoclopramide 10 MG/2 ML VIAL IVP (21:25)
[2021-09-04] MEDS: Silver sulfaDIAZINE 1% 25 GM TUBE TP (21:26)
[2021-09-05] VITALS (119 sets, daily range): BP systolic 129–165; BP diastolic 70–97; PULSE 63–87; RESP 0–24; TEMP 36.7–38.3; O2SAT 90–99
[2021-09-05] MEDS: ACETAMINOPHEN 1,000 MG/100 ML BTL 400 MG IVPB ×2 (01:05→11:23)
[2021-09-05] MEDS: CEFEPIME 2 GM in Normal Saline 100 ML IVPB ×3 (02:30→18:04)
[2021-09-05] MEDS: HYDROmorphone 2 MG/ML SYR IVP (02:58)
[2021-09-05] MEDS: Normal Saline Flush 10 ML SYR ×2 (06:08→14:24)
[2021-09-05] MEDS: Pantoprazole 40 MG VIAL 80 MG IVP (06:08)
[2021-09-05 06:48] LABS: Absolute Basophil Count 0.01 10^3/uL (0.0-0.2); Absolute Eosinophil Count 0.05 10^3/uL (0.0-0.7); Absolute Lymphocyte Count 0.35 10^3/uL (1.2-3.4); Absolute Monocyte Count 0.26 10^3/uL (0.1-0.8); Absolute Neutrophil Count 0.83 10^3/uL (1.2-6.7); Basophils % 0.7; Eosinophils % 3.3; HCT 27.3 % (40.0-50.0); HGB 9.2 g/dL (13.5-17.5); Lymphocytes % 23.3; MCH 29.3 pg (27.0-33.0); MCHC 33.7 % (32.0-36.0); MCV 87 fL (80-95); MPV 9.8 fL (8.0-11.0); Monocytes % 17.3; Neutrophils % 55.4; RBC 3.14 10^6/uL (4.36-5.78); RDW 15.8 % (11.8-14.1); RDW-SD 48.7 fL
[2021-09-05 06:59] LABS: Anion Gap 6.8 mmol/L (3-11); BUN 16 mg/dL (7-18); CO2 32.2 mmol/L (21.0-32.0); CREATININE 1.1 mg/dL (0.70-1.30); Calcium 7.5 mg/dL (8.5-10.1); Chloride 102 mmol/L (98-107); Glucose 115 mg/dL (74-106); Magnesium 1.6 mg/dL (1.8-2.4)
[2021-09-05 07:24] LABS: Sodium 141 mmol/L (136-145)
[2021-09-05 07:32] LABS: Diff Comment Agrees w/ Instrument; Platelet Count 122 10^3/uL (130-400); RBC Morphology Normal
[2021-09-05] MEDS: VANCOMYCIN/WATER (PEG) 1.25 GM/250 ML BAG IV ×2 (07:49→19:54)
[2021-09-05] MEDS: POTASSIUM CHLORIDE 10 MEQ/100 ML BAG 100 MEQ IVPB ×2 (08:12→09:22)
[2021-09-05] MEDS: Silver sulfaDIAZINE 1% 25 GM TUBE TP ×2 (08:39→19:53)
--- NOTE | 2021-09-05 09:24 | NUR.NOTE ---
RN has patient call his to bring a special syringe that fits his PEGG tube so that it can be used to give overdue medications. This RN did have patient's bring such a device yesterday but same cannot be located. Overnight RN also could not locate same.
[2021-09-05] MEDS: Magnesium Oxide 400 MG TAB JT ×2 (10:16→19:54)
[2021-09-05] MEDS: Methylphenidate 10 MG TAB 5 MG PO (10:16)
[2021-09-05] MEDS: Potassium Chloride Liquid 20 MEQ PKT NG ×3 (10:17→19:54)
[2021-09-05] MEDS: Senna TAB 1 TAB PO (11:05)
--- NOTE | 2021-09-05 12:04 | NUR.NOTE ---
Feed increased to 60ml/hr from 45ml/hr. Patient tolerating feeds well.Nursing Note:
--- NOTE | 2021-09-05 13:39 | PGE_ITS ---
Date of Service Date of service: 09/05/21 Time of Service: 13:39 Assessment and Plan Assessment and plan (1) Upper GI bleeding: Status: Acute Assessment and plan: Hgb now 9.2 S/P 2 units pRBCs. Cont to monitor. Change from IV Protonix to 40 mg esomeprazole via PEG tube daily. (2) Neutropenic fever: Status: Acute Assessment and plan: T of 38.1 this AM. Unclear source; urine, KUB and repeat CXR negative for acute findings. MRSA screen positive, but blood cx neg x 24H. Cont to monitor results. Cont Cefepime and Vancomycin empirically. (3) Head and neck cancer: Assessment and plan: s/p radiation and chemotherapy. he has been currently on palliative chemotherapy. He has evidence of mucositis. I have ordered penciclovir for his labial ulcer and viscous lidocaine for his mouth. Skin defenses are compromised at neck. Given + MRSA screen concerned he had MRSA bacteremia. To date, blood cxs negative. He has been off his fentanyl patch since admission and only received one IV dose of narcotic. Denies any current pain. He did endorse that he was c/o neck pain and oncologist had considered increasing fentanyl patch fro 100mcg to 125mcg. At this time, will restart his usual 100mcg dose. (4) Palliative care patient: Status: Acute Assessment and plan: Palliative care was consulted and seen. Her input to his care is greatly appreciated. Patient is DNR/DNI per his prior advanced directives. (5) Vomiting: Status: Acute Assessment and plan: Potentially d/t constipation. He did not tolerate a half bottle of MgCitrate; burning feeling in stomach. He also had no BM after it was administered. Senna x2 doses hasn't resulted in a BM. Likely has narcotic bowel. Relistor 12 mg SQ ordered. (6) Dehydration: Status: Acute Assessment and plan: he has hypokalemia and dehydration from emesis prior to admission. Now back on PEG tube feeds with water flushes. Creatinine improved from 1.6 to 1.1. monitor intake/output and BMP. (7) DVT prophylaxis: Status: Acute Assessment and plan: not candidate for chemoprophylaxis in setting of GI bleeding. Cont SCDs Subjective Subjective Patient reports: no new complaints, feels better and fever (Temp of 38.1 this AM); denies bowel movement, nausea or vomiting Interval history since last seen: He endorses not remember the ambulance ride to the hospital from [facility]. Exam Narrative Exam Narrative: Lying in bed. Very talkative and pleasant. Const General: cooperative and no acute distress Nutritional Appearance: average body habitus Orientation: alert and oriented x3 Eyes General: appearance normal, both eyes and all related structures Sclera: sclerae normal Resp Effort & Inspection: normal respiratory effort Auscultation: clear to auscultation bilaterally Cardio Rate: regular rate and bradycardic Skin General skin exam: no rashes or lesions noted Extrem General: no pedal edema and no calf tenderness Psych Appearance: grossly normal Mental Status: mental status grossly normal Speech and Movement: pressured speech Affect: animated Objective Last Vital Signs Temp 38.1 C H 09/05/21 08:58 Pulse 66 09/05/21 08:58 Resp 11 L 09/05/21 08:58 BP 140/86 09/05/21 08:58 Pulse Ox 95 09/05/21 08:58 Laboratory Results - last 24 hr 09/03/21 09/05/21 09/05/21 16:24 05:55 05:55 WBC RBC Hgb Hct MCV MCH MCHC RDW Plt Count MPV Immature Gran % Neutrophils % Lymphocytes % Monocytes % Eosinophils % Basophils % Nucleated RBC % Absolute Neutrophils Absolute Lymphocytes Absolute Monocytes Absolute Eosinophils Absolute Basophils RBC Morphology Sodium 141 Potassium Chloride 102 Carbon Dioxide 32.2 H Anion Gap 6.8 BUN 16 Creatinine 1.1 Estimated GFR/1.73 m2 >= 60.00 Glucose 115 H Calcium 7.5 L Magnesium 1.6 L Vancomycin Trough 14.0 Crossmatch See Detail 09/05/21 05:55 WBC 1.50 L* RBC 3.14 L Hgb 9.2 L Hct 27.3 L MCV 87 MCH 29.3 MCHC 33.7 RDW 15.8 H Plt Count 122 L MPV 9.8 Immature Gran % 0.0 Neutrophils % 55.4 Lymphocytes % 23.3 Monocytes % 17.3 Eosinophils % 3.3 Basophils % 0.7 Nucleated RBC % 0.0 Absolute Neutrophils 0.83 L Absolute Lymphocytes 0.35 L Absolute Monocytes 0.26 Absolute Eosinophils 0.05 Absolute Basophils 0.01 RBC Morphology Normal Sodium Potassium Chloride Carbon Dioxide Anion Gap BUN Creatinine Estimated GFR/1.73 m2 Glucose Calcium Magnesium Vancomycin Trough Crossmatch
[2021-09-05] MEDS: fentaNYL 100 MCG PATCH TD (14:27)
[2021-09-05] MEDS: Methylnaltrexone 12 MG/0.6 ML VIAL SC (14:31)
--- NOTE | 2021-09-05 14:37 | NUR.NOTE ---
RN draws hemogram off left chest port.Nursing Note:
[2021-09-05 14:39] LABS: Anion Gap 9.8 mmol/L (3-11); BUN 19 mg/dL (7-18); CO2 35.2 mmol/L (21.0-32.0); CREATININE 1.2 mg/dL (0.70-1.30); Calcium 7.8 mg/dL (8.5-10.1); Chloride 97 mmol/L (98-107); Glucose 122 mg/dL (74-106); Potassium 3.9 mmol/L (3.5-5.1); Sodium 142 mmol/L (136-145)
--- NOTE | 2021-09-05 14:45 | NUR.NOTE ---
in to visit with her daughter.Nursing Note:
--- NOTE | 2021-09-05 14:51 | NUR.NOTE ---
RN offers to bathe patient but patient refuses and agrees to get to same in an hour or two.Nursing Note:
[2021-09-05] MEDS: Acetaminophen Solution 650 MG/20.3 ML CUP 1000 MG NG (15:53)
[2021-09-05] MEDS: Metoclopramide 10 MG/2 ML VIAL IVP (15:54)
[2021-09-05] MEDS: Milk of Magnesia 30 ML CUP PO (18:05)
[2021-09-06] VITALS (21 sets, daily range): BP systolic 121–138; BP diastolic 76–91; PULSE 67–82; RESP 9–20; TEMP 36–38.3; O2SAT 93–98
[2021-09-06] MEDS: CEFEPIME 2 GM in Normal Saline 100 ML IVPB ×3 (02:26→18:34)
[2021-09-06 06:53] LABS: Abs Immature Grans 0.02 10^3/uL (0.0-0.06); Absolute Basophil Count 0.02 10^3/uL (0.0-0.2); Absolute Eosinophil Count 0.08 10^3/uL (0.0-0.7); Absolute Lymphocyte Count 0.39 10^3/uL (1.2-3.4); Absolute Neutrophil Count 0.92 10^3/uL (1.2-6.7); Basophils % 1.1; Eosinophils % 4.4; HCT 28.7 % (40.0-50.0); HGB 9.6 g/dL (13.5-17.5); Immature Grans % 1.1; Lymphocytes % 21.3; MCH 29.3 pg (27.0-33.0); MCHC 33.4 % (32.0-36.0); MCV 88 fL (80-95); MPV 9.5 fL (8.0-11.0); Monocytes % 21.9; Neutrophils % 50.2; Platelet Count 137 10^3/uL (130-400); RBC 3.28 10^6/uL (4.36-5.78); RDW 16.2 % (11.8-14.1); RDW-SD 51.8 fL
[2021-09-06 07:04] LABS: Anion Gap 6.1 mmol/L (3-11); BUN 19 mg/dL (7-18); CO2 32.9 mmol/L (21.0-32.0); CREATININE 1.1 mg/dL (0.70-1.30); Calcium 7.9 mg/dL (8.5-10.1); Chloride 99 mmol/L (98-107); Glucose 110 mg/dL (74-106); Magnesium 1.3 mg/dL (1.8-2.4); Potassium 3.5 mmol/L (3.5-5.1); Sodium 138 mmol/L (136-145)
[2021-09-06 07:08] LABS: WBC 1.83 10^3/uL (4.4-10.8)
[2021-09-06 07:10] LABS: Diff Comment Agrees w/ Instrument; RBC Morphology Normal
[2021-09-06] MEDS: Methylphenidate 10 MG TAB 5 MG PO (08:42)
[2021-09-06] MEDS: Apixaban 5 MG TAB PO ×2 (08:42→21:09)
[2021-09-06] MEDS: Potassium Chloride Liquid 20 MEQ PKT NG ×3 (08:45→21:09)
[2021-09-06] MEDS: Magnesium Oxide 400 MG TAB 800 MG JT ×2 (08:45→21:09)
[2021-09-06] MEDS: VANCOMYCIN/WATER (PEG) 1.25 GM/250 ML BAG IV ×2 (08:49→21:10)
[2021-09-06] MEDS: MAGNESIUM SULFATE 4 GM/100 ML BAG IVPB (08:54)
--- NOTE | 2021-09-06 09:41 | PDOC.CMPRO ---
- If Service Date Differs Date of service: 09/06/21 Time of Service: 09:41 Care Management Progress Note S/O: Debra continues to be closely monitored and treated. He remains in the ICU at this time. CM continues to follow. A: 51 year old male admitted to [facility] 09/03/21 for dehydration, nausea, intractable pain P: Anticipate Debra will return home when ready, possibly with new home health orders for RN/PT. Palliative will continue to follow, as well as his PCP and [facility] for Palliative chemo.
--- NOTE | 2021-09-06 12:40 | IN_ITS ---
Date of service: 09/06/21 Time of Service: 10:15 PT Notes Visit Reasons: Dehydration,Nausea,Intractable Pain Physical Therapy Inpatient Initial Evaluation Date: 09/06/2021 Referring Doctor: Lucien Omer MD PT Orders: PT CONSULT: Eval/Treat Precautions: Fall. Standard. Activity as tolerated. Patient Profile/Admitting Diagnosis: Justin is a 51-year-old male on palliative care with diagnosis of dehydration, vomiting, upper gastrointestinal bleeding, neutropenic fever, head and neck cancer status post chemoradiation. PMHX: All Active Problems?(Updated 09/03/21 @ 22:57 by Magdaleno Amaya MD) DVT prophylaxis (Acute) Dehydration (Acute) Neutropenic fever (Acute) Upper GI bleeding (Acute) Vomiting (Acute) Palliative care patient (Acute) Medical History? Abnormal weight loss Cancer related pain DNI (do not intubate) DNR (do not resuscitate) Dysphagia Head and neck cancer Hypertension Physician orders for life-sustaining treatment (POLST) form indicates patient wish for [id number] status Tonsil cancer Trismus Surgical History? History of oral surgery Hx of knee surgery Social History/Home Situation: Lives with and step father in a private home. Independent with all aspects of ADLs without AD prior to admission. Equipment Owned/DME: None Subjective: Requested to be seen later in the morning for the ambulation part of the assessment as he states that he is so tired and needed to sleep. Was able to tolerate ambulation activity at noon time when this provider returned. Objective: General Observation: Supine in bed. Telemetry monitoring in place. PEG tube in place. IV access in R UE. Anterior neck area skin breakdown/wound noted. Mental Status: Alert and oriented as to person, place, time, and purpose. Able to pay attention, focus, and respond appropriately. Pain: Discomfort in neck and head, minimal Vital Signs: WNL as closley monitored via tele ROM: Right Upper Extremity: Shoulder Flexion WFL. Shoulder abduction WFL. Elbow flexion WFL. Wrist flexion WFL. Functional opening and closing of hand WFL. Left Upper Extremity: Shoulder Flexion WFL. Shoulder abduction WFL. Elbow flexion WFL. Wrist flexion WFL. Functional opening and closing of hand WFL. Right Lower Extremity: Hip flexion WFL. Hip abduction WFL. Knee flexion WFL. Ankle dorsiflexion WFL. Ankle plantarflexion WFL. Left Lower Extremity: Hip flexion WFL. Hip abduction WFL. Knee flexion WFL. Ankle dorsiflexion WFL. Ankle plantarflexion WFL. Strength: Right Upper Extremity: Shoulder flexors 4-/5. Shoulder abductors 4-/5. Elbow flexors 4-/5. Elbow extensors 4-/5. Welder [employer] strong. Left Upper Extremity: Shoulder flexors 4-/5. Shoulder abductors 4-/5. Elbow f lexors 4-/5. Elbow extensors 4-/5. Welder First [employer] strong. Right Lower Extremity: Hip flexors 4/5. Hip abductors 4/5. Knee flexors 4/5. Knee extensors 4/5. Ankle dorsiflexors 4/5. Ankle plantarflexors 4/5. Left Lower Extremity: Hip flexors 4/5. Hip abductors 4/5. Knee flexors 4/5. Knee extensors 4/5. Ankle dorsiflexors 4/5. Ankle plantarflexors 4/5. Bed Mobility/Transfers: Rolling independent Supine to sit independent Sit to supine supervision Sit to stand supervision Stand to sit supervision Bed to bedside commode supervision Bedside commode to bed supervision Bed to reclining chair with supervision Reclining chair to bed with supervision Gait: Instructed patient with level surface ambulation of 80 feet requiring conatct guard assist. Mellissa decreased. Near LOB when he turned around for the first time in the hallway too quickly needing minimal assist to recover. Required holding onto IV pole for minimal support. Looked a little unsteady with unsupported walking for a short distance. Denies headache, chest pain, and lightheadedness. Balance: Static Sitting: Normal Dynamic Sitting: Normal Static Standing: Good Dynamic Standing: Fair Special Tests: Mobility Limitations Standardized Measure [facility] AM-PAC 6 clicks Basic Mobility Inpatient Short Form: Raw Score: 22 CMS Score: 21% deficit Informed Consent/Education: Patient was instructed in purpose of PT consult and plan of care. Agreeable to proceed with established PT POC to achieve personal goals. Assessment: Patient presents with clinical signs and symptoms consistent with current/admitting diagnoses that have resulted to mobility limitations, gait instability, generalized weakness, and overall ADL decline as demonstrated by the following impairment level findings: 1. Decreased strength to B UE/LE major muscle groups 2. Impaired sitting/standing balance 3. Impaired activity tolerance 4. Shortness of breath Impairments are contributing to the following functional limitations: 1. Difficulty with ambulation without assistive device 2. Increased completion time for mobility ADL performance 3. Increased risk for falls 4. Difficulty with managing steps alone safely Patient is assessed as a [id number] moderate complexity based on the following: History: 51-year-old male with past medical history as indicated above Examination: Demonstrable impairment in strength, balance, and mobility level with underlying impairments and functional limitations as exhibited above as well as deficit score of 21% utilizing the [facility] Mobility Inpatient Short Form Presentation: Evolving Decision Makin moderate complexity Goals: Goals X1 week 1. Supine-Sit independent 2. Sit-Supine independent 3. Sit-Stand independent 4. Stand-Sit independent with no AD 5. Bed-Chair independent with no AD 6. Chair-Bed independent with no AD 7. Independent gait on level surface with use of with no AD for at least 300 feet without report of pain nor dyspnea 8. Independent stair negotiation while holding onto B rails for at least 5 steps without report of pain nor dyspnea 9. Good static and dynamic standing balance/tolerance Plan of Care/Treatment Plan: 1-2x/day, 7 days/week x 1 week. Plan of care has been reviewed with the STEM PROCESSING MACHINE OPERATOR providing the service under Physical Therapy direction. Initiate Physical Therapy intervention for pain management as needed, strengthening, bed mobility, transfers, gait, stairs, balance training, and use of assistive device. DISCHARGE RECOMMENDATIONS: [] Home with no services [] [X] Home with services. Patient will benefit from residential facility placement for continued skilled physical therapy services in order to progress mobility level, strength, and balance in preparation for a safe discharge to home. [] Home with outpatient PT [] [] SNF for continued rehabilitation [] [] [facility] [] [] SNF versus LTC based on ability to participate and progress [] TREATMENT CODE/TIME: 96214 x 27 minutes beginning at 10:15 AM and 12:40 PM. Thank you for the opportunity to participate in the care of this patient. Louisa Rodriguez PT, DPT, CLT [facility] [place], [place]
--- NOTE | 2021-09-06 13:13 | PGE_ITS ---
Date of Service Date of service: 09/06/21 Time of Service: 13:13 Assessment and Plan Assessment and plan (1) Upper GI bleeding: Status: Acute Assessment and plan: Hgb now 9.2 > 9.6 S/P 2 units pRBCs. Cont to monitor. Continue 40 mg esomeprazole via PEG tube daily. (2) Neutropenic fever: Status: Acute Assessment and plan: T of 38.3 in the last 24H (at 1600 yesterday). Unclear source; urine, KUB and repeat CXR negative for acute findings. MRSA screen positive, but blood cx neg x 24H. Cont to monitor results. Cont Cefepime and Vancomycin empirically. WBC count is recovering. ANC improving; 920. (3) Head and neck cancer: Assessment and plan: s/p radiation and chemotherapy. he has been currently on palliative chemotherapy. He has evidence of mucositis. I have ordered penciclovir for his l abial ulcer and viscous lidocaine for his mouth. Skin defenses are compromised at neck. Given + MRSA screen concerned he had MRSA bacteremia. To date, blood cxs negative. He has been off his fentanyl patch since admission and only received one IV dose of narcotic. Denies any current pain. He did endorse that he was c/o neck pain and oncologist had considered increasing fentanyl patch fro 100mcg to 125mcg. Will continue with 100mcg patch. (4) Palliative care patient: Status: Acute Assessment and plan: Palliative care was consulted and seen. Her input to his care is greatly appreciated. Patient is DNR/DNI per his prior advanced directives. (5) Dehydration: Status: Acute Assessment and plan: he has hypokalemia and dehydration from emesis prior to admission. Now back on PEG tube feeds with water flushes. Creatinine improved from 1.6 to 1.1. monitor intake/output and BMP. (6) DVT prophylaxis: Status: Acute Assessment and plan: not candidate for chemoprophylaxis in setting of GI bleeding. Cont SCDs (7) Constipation: Status: Acute Assessment and plan: Moderate amount of stool on abd xray. No Bm since admission. Has received 1/2 bottle of Mgcitrate w/o results (caused burning in stomach). S/P senna and MOM w/o results. No stool after Relistor 12mg SQ May need suppository or enema. (8) Discharge planning issues: Status: Acute Assessment and plan: Home potentially with HH nursing and PT (PT eval pending). Subjective Subjective Patient reports: no new complaints and afebrile; denies bowel movement, nausea or vomiting Exam Narrative Exam Narrative: Lying in bed. Very talkative and pleasant. Const General: cooperative and no acute distress Nutritional Appearance: average body habitus Orientation: alert and oriented x3 Eyes General: appearance normal, both eyes and all related structures Sclera: sclerae normal Resp Effort & Inspection: normal respiratory effort Auscultation: clear to auscultation bilaterally Cardio Rate: regular rate and bradycardic Skin General skin exam: no rashes or lesions noted Extrem General: no pedal edema and no calf tenderness Psych Appearance: grossly normal Mental Status: mental status grossly normal Speech and Movement: pressured speech Affect: animated Objective Last Vital Signs Temp 37.6 C H 09/06/21 10:20 Pulse 74 09/06/21 10:20 Resp 16 09/06/21 10:20 BP 138/76 09/06/21 09:03 Pulse Ox 94 09/06/21 10:20 Laboratory Results - last 24 hr 09/05/21 09/06/21 09/06/21 14:17 05:50 05:50 WBC 1.83 L* RBC 3.28 L Hgb 9.6 L Hct 28.7 L MCV 88 MCH 29.3 MCHC 33.4 RDW 16.2 H Plt Count 137 MPV 9.5 Immature Gran % 1.1 Neutrophils % 50.2 Lymphocytes % 21.3 Monocytes % 21.9 Eosinophils % 4.4 Basophils % 1.1 Nucleated RBC % 0.0 Absolute Neutrophils 0.92 L Absolute Lymphocytes 0.39 L Absolute Monocytes 0.40 Absolute Eosinophils 0.08 Absolute Basophils 0.02 RBC Morphology Normal Sodium 142 138 Potassium 3.9 3.5 Chloride 97 L 99 Carbon Dioxide 35.2 H 32.9 H Anion Gap 9.8 6.1 BUN 19 H 19 H Creatinine 1.2 1.1 Estimated GFR/1.73 m2 >= 60.00 >= 60.00 Glucose 122 H 110 H Calcium 7.8 L 7.9 L Magnesium 1.3 L
[2021-09-06] MEDS: Normal Saline Flush 10 ML SYR ×2 (15:01→19:32)
[2021-09-06] MEDS: Silver sulfaDIAZINE 1% 25 GM TUBE TP (21:10)
--- NOTE | 2021-09-07 | DI.RAD_ITS ---
Exam(s) XR PORTABLE CHEST AP EXAM: XR PORTABLE CHEST AP CLINICAL HISTORY: leukopenia and fever TECHNIQUE: 2D digital imaging was performed of the chest. One image was obtained. An AP view was ob tained. COMPARISON: CR,XR XR PORTABLE CHEST AP from 09/04/2021 FINDINGS: MEDIASTINUM: Normal. HEART: Normal. PULMONARY VASCULATURE: Normal. LUNGS: Clear. PLEURAL SPACE: No pleural effusion or pneumothorax. BONE:Within normal limits for the patient's age. OTHER FINDINGS:The left-sided central venous catheter is in good position with the tip in the superio r vena cava. IMPRESSION: No acute pulmonary findings. DATA REPOSITORY: RADIATION DOSE DELIVERED:
[2021-09-07] MEDS: CEFEPIME 2 GM in Normal Saline 100 ML IVPB ×2 (01:54→11:22)
[2021-09-07] MEDS: Normal Saline Flush 10 ML SYR IVP ×2 (05:51→09:48)
[2021-09-07 06:28] LABS: Abs Immature Grans 0.03 10^3/uL (0.0-0.06); Absolute Basophil Count 0.01 10^3/uL (0.0-0.2); Absolute Eosinophil Count 0.12 10^3/uL (0.0-0.7); Absolute Lymphocyte Count 0.55 10^3/uL (1.2-3.4); Absolute Monocyte Count 0.41 10^3/uL (0.1-0.8); Absolute Neutrophil Count 1.22 10^3/uL (1.2-6.7); Basophils % 0.4; Eosinophils % 5.1; HGB 10.3 g/dL (13.5-17.5); Immature Grans % 1.3; Lymphocytes % 23.5; MCH 30.4 pg (27.0-33.0); MCHC 34.3 % (32.0-36.0); MCV 89 fL (80-95); MPV 9.6 fL (8.0-11.0); Monocytes % 17.5; Neutrophils % 52.2; Platelet Count 159 10^3/uL (130-400); RBC 3.39 10^6/uL (4.36-5.78); RDW 16.7 % (11.8-14.1); RDW-SD 53.8 fL; WBC 2.34 10^3/uL (4.4-10.8)
[2021-09-07 06:39] LABS: Anion Gap 5.9 mmol/L (3-11); BUN 23 mg/dL (7-18); CO2 35.1 mmol/L (21.0-32.0); Calcium 8.1 mg/dL (8.5-10.1); Chloride 100 mmol/L (98-107); Glucose 110 mg/dL (74-106); Magnesium 1.9 mg/dL (1.8-2.4); Potassium 4.4 mmol/L (3.5-5.1); Sodium 141 mmol/L (136-145)
--- NOTE | 2021-09-07 08:51 | PT.INTREAT ---
Date of service: 09/07/21 Time of Service: 08:30 PT Notes Visit Reasons: Dehydration,Nausea,Intractable Pain Inpatient Physical Therapy Treatment Note [facility] Date: 09/07/2021 PRECAUTIONS: Fall, Contact SUBJECTIVE: Justin is pleasant and agreeable to participating in PT. He hopes to discharge to home later today. He reports that he feels slightly unsteady and feel that he may benefit from a cane for stability. OBJECTIVE: Issued SPC for at home patient use for periods when he feels weaker and not as steady. Completed [employer] form and submitted to Care Management. PAIN: No c/o pain BED MOBILITY/TRANSFERS Supine-sit: I Sit-stand: I Stand-sit: I Bed-Chair: I Chair-bed: I GAIT Assistive Device: No AD Weight bearing: Full Assist: I Distance: 500' Deviation: None STAIRS: Up/down 3x4 and 2x6 without railing support with a step-over pattern independently. ASSESSMENT: Patient tolerated session well without complaint. He was able to demonstrate independence with ambulation without assistive device support as well as with stair negotiation and transfers at this time. PLAN: Patient to discharge to home later today, per provider. Follow up with PT services, as needed, upon discharge to home. TREATMENT CODE/TIME: 21 minutes; 17645 (08:30)
[2021-09-07] MEDS: Apixaban 5 MG TAB PO (09:17)
[2021-09-07] MEDS: Potassium Chloride Liquid 20 MEQ PKT NG (09:17)
[2021-09-07] MEDS: Magnesium Oxide 400 MG TAB 800 MG JT (09:17)
[2021-09-07] MEDS: Methylphenidate 10 MG TAB 5 MG PO (09:17)
[2021-09-07] MEDS: Silver sulfaDIAZINE 1% 25 GM TUBE TP (09:30)
[2021-09-07] MEDS: VANCOMYCIN/WATER (PEG) 1.25 GM/250 ML BAG IV (09:32)
--- NOTE | 2021-09-07 10:07 | DSE_ITS ---
Date of service: 09/07/21 Time of Service: 10:08 DS: Diagnosis Discharge Diagnosis (1) Upper GI bleeding: Status: Acute (2) Neutropenic fever: Status: Acute (3) Head and neck cancer: (4) Palliative care patient: Status: Acute (5) Dehydration: Status: Acute (6) DVT prophylaxis: Status: Acute (7) Constipation: Status: Acute (8) Discharge planning issues: Status: Acute Discharge Plan Disposition Patient Disposition: HOME W/HOME HEALTH SERVICE Condition: Improving Discharge Details Reason For Visit: Leukopenia, fever, anemia Admit Date/Time: 09/03/21 16:16 Admit Provider: Magdaleno Amaya Attending Provider: Magdaleno Amaya Primary Care Provider: Lanny Mace [facility] Course Hospital Course: 51-year-old male with a 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 He presented late in his course w/ facial swelling and neck mass but had a response to chemotherapy and radiation.? Patient is followed by Dr. Jonas from [facility].? Per Dr. Jonas patient's not been able to taking in anything orally for the last 3 to 4 days due to increased pain from his mouth and throat.? Patient has a G-tube in place but despite the G t ube, he has been intolerant of enteral intake. Dr. Jonas called me to requested direct admission.? I was told by Dr. Jonas that the patient was hemodynamically stable and afebrile.? They drawn labs earlier today that showed him to be neutropenic with a total white count 1200 ANC of 520 and hemoglobin of 7.7 g.? I was told that his blood count was stable.? I agreed to accept the patient as it sounds like he just needed IV fluids and better pain control.? Patient was already on a Duragesic patch 100 mcg but they were having trouble controlling his pain.? Patient received oxycodone 10 mg in the cancer center.? Upon arrival to the medical/surgical floor the patient was obtunded having sonorous r espirations and despite noxious stimulation with sternal rub and clavicular rub cannot get the patient to fully awaken.? He would open his eyes and wince but would not focus or look at me.? Patient was given Narcan 0.4 mg IV push at which point he became more arousable and now he is fully awake.? Patient is now uncooperative with nursing and laboratory staff.? He is angry because blood work was drawn earlier and now he requires further blood cultures because he is now running a fever.? He is angry that his cannot come in and see him until his COVID swab comes back negative. After his COVID test came back negative and his was able to visit with him the patient became more amenable to treatment.? Patient was agreeable to acccepting a unit of packed red cells for tonight to treat his anemia. With regard to his upper GI bleeding he has been vomiting up dark blood for 3 days.? He denies any abdominal pain although when he was obtunded when I examined his belly was very tender.? At time of admission he denied abdominal pain.? He denied use of NSAIDs and denied use of alcohol and denied any prior history of peptic ulcer disease.? Review of his blood counts shows that he has been getting progressively anemic over the last 3 weeks.? His baseline hemoglobin is between 9.5 and 10 g but over the past month has been dropping and in fact 3 days ago his hemoglobin was 9 g and is down to 7.7. While the patient was reportedly afebrile when I receive report from Dr. Jonas. After admission he spiked a temp of 38.2.? Blood cultures obtained. Cefepime and Vancomycin initiated. His hemoglobin increased to 10.4 initially after the transfusion, but the following lab drawn showed it to be 7.3. He had no hemoptysis, melena or hematochezia. He was transfused another unit of RBCs and hemoglobin then improved with an upward trend: 9.2 > 9.6 > 10.3. He did have further intermittent fevers but his WBC count improved to 2.34 and his ANC improved to 1220. He returned to a normal level of consciousness. He was evaluated by PT. No source of his fevers was found. CXR and UA were unremarkable. The possibility of cellulitis of the neck where there has been radiation injury was considered. His antibiotic coverage would have been adequate coverage. His nasal MRSA swab was positive. However, blood cultures were negative x 72 hours. Patient to call [facility] to discuss further radiation and chemotherapy treatments. F/U with PCP in 1-2 weeks. Home Meds and New Rx's Prescriptions: New magnesium oxide 400 mg (241.3 mg magnesium) Tablet 400 mg J-tube BID Qty: 60 0RF silver sulfadiazine [SSD] 1 % Cream 1 applic topical BID Qty: 50 0RF Rx Instructions: apply to neck amoxicillin-pot clavulanate 875-125 mg tablet 1 tab PO BID Qty: 7 0RF Continued gabapentin 100 mg capsule 100 - 200 mg PO QHS Qty: 60 0RF ondansetron 4 mg tablet,disintegrating 4 mg PO Q8H PRN (Reason: nausea and vomiting) Qty: 30 3RF Eliquis 5 mg tablet 5 mg PO BID codeine-guaifenesin 10-100 mg/5 mL liquid 10 ml PO Q4H PRN (Reason: cough) Qty: 120 0RF Rx Instructions: palliative care patient benzonatate 100 mg capsule 100 mg PO TID PRN (Reason: cough) Qty: 60 3RF prochlorperazine maleate 5 mg tablet 5 mg PO QID PRN (Reason: nausea and vomiting) Qty: 60 3RF hydromorphone 2 mg tablet 2 mg PO Q6H MDD 4 tabs PRN (Reason: pain) Qty: 60 0RF Rx Instructions: for cancer related pain Palliative care patient. methylphenidate HCl [Ritalin] 5 mg tablet 5 mg PO DAILY MDD 1 tablet Qty: 14 0RF Rx Instructions: palliative care patient fentanyl 100 mcg/hr patch 72 hour 1 patch transdermal Q72H MDD 1 patch Qty: 10 0RF Rx Instructions: for cancer related pain High-Protein Nutritional Shake Liquid 237 ml PO TID acetaminophen 500 mg capsule 1,000 mg PO Q6H PRN oxycodone 5 mg/5 mL solution 5 ml PO Q3H PRN (Reason: Pain) Label Comments: TAKE 5ML BY MOUTH EVERY 3 HOURS NEEDED FOR PAIN Discontinued amoxicillin 500 mg capsule 500 mg PO TID Discharge Instructions Activity:: Activity as Tolerated Equipment/Supplies:: No Equipment Needed Diet:: Resume usual home diet Discharge Orders Discharge Orders: Discharge Order (Routine); Ordered 09/07/21 Ordered By: Lucien Omer DS: Summary Time Spent with Patient providing and/or coordinating discharge services: Greater than 30 minutes Status at Discharge Functional status at discharge: independent ambulation Overall status at discharge: patient is progressing back to baseline Mental Status: mental status grossly normal Speech and Movement: speech clear and pressured speech Mood: congruent mood Affect: animated Exam Narrative Exam Narrative: Lying in bed. Very talkative and pleasant. Const General: cooperative and no acute distress Nutritional Appearance: average body habitus Orientation: alert and oriented x3 Eyes General: appearance normal, both eyes and all related structures Sclera: sclerae normal Resp Effort & Inspection: normal respiratory effort Auscultation: clear to auscultation bilaterally Cardio Rate: regular rate and bradycardic Skin Rashes: no rashes Full body images: 1. erythema with shallow ulceration Extrem General: no pedal edema and no calf tenderness Psych Appearance: grossly normal Mental Status: mental status grossly normal Speech and Movement: speech clear and pressured speech Mood: congruent mood Affect: animated DS: Data Vitals/I&O Vitals and I&O: Vital Signs Temperature 38.3 C H 09/06/21 23:20 Temperature Source Tympanic 09/06/21 23:20 Pulse 68 09/06/21 23:22 Pulse Rhythm Regular 09/07/21 00:00 Pulse 69 09/06/21 08:00 Respiratory Rate 18 09/06/21 23:20 Respiratory Effort 09/07/21 00:00 Respiratory Depth Normal 09/07/21 00:00 Respiratory Pattern Normal 09/07/21 00:00 Blood Pressure 136/91 H 09/06/21 23:22 Blood Pressure Mean 101 09/06/21 23:22 Blood Pressure Position Supine 09/05/21 16:00 Pulse Oximetry 97 09/06/21 23:23 Oxygen Delivery Method Room Air 09/06/21 23:20 Oxygen Flow Rate 0 09/06/21 23:20 Pain Level 0 09/06/21 23:20 Intake & Output 09/06/21 09/06/21 09/07/21 11:59 23:59 11:59 Intake Total 350 / 1172 822 / 1172 505 / 505 Output Total 400 / 1350 700 / 1350 250 / 250 Balance -50 / -178 122 / -178 255 / 255 Weight 75.9 kg Intake: IV 350 / 920 570 / 920 Intake, Tube Feeding Amount 252 / 252 505 / 505 Output: Gastric Drainage 0 / 0 Lt Upper Quadrant 0 / 0 Urine 400 / 1300 650 / 1300 250 / 250 Output, Residual 50 / 50 Other: Urine Color Yellow Yellow Pale Yellow Urine Appearance Clear Clear Urine Odor None Voiding Methods Urinal Data Completed and Pending Labs on day of discharge: Labs from last 24 hours 09/07/21 09/07/21 05:48 05:48 WBC 2.34 L RBC 3.39 L Hgb 10.3 L Hct 30.0 L MCV 89 MCH 30.4 MCHC 34.3 RDW 16.7 H Plt Count 159 MPV 9.6 Immature Gran % 1.3 Neutrophils % 52.2 Lymphocytes % 23.5 Monocytes % 17.5 Eosinophils % 5.1 Basophils % 0.4 Nucleated RBC % 0.0 Absolute Neutrophils 1.22 Absolute Lymphocytes 0.55 L Absolute Monocytes 0.41 Absolute Eosinophils 0.12 Absolute Basophils 0.01 Sodium 141 Potassium 4.4 Chloride 100 Carbon Dioxide 35.1 H Anion Gap 5.9 BUN 23 H Creatinine 1.0 Estimated GFR/1.73 m2 >= 60.00 Glucose 110 H Calcium 8.1 L Magnesium 1.9 Preliminary micro results at discharge 09/03/21 23:12 Blood Culture - Preliminary Blood NO GROWTH 72 HOURS 09/03/21 23:12 Blood Culture - Preliminary Blood NO GROWTH 72 HOURS PFSH All Active Problems Discharge planning issues (Acute) Constipation (Acute) DVT prophylaxis (Acute) Dehydration (Acute) Neutropenic fever (Acute) Upper GI bleeding (Acute) Vomiting (Acute) Palliative care patient (Acute) Medical History Abnormal weight loss Cancer related pain DNI (do not intubate) DNR (do not resuscitate) Dysphagia Head and neck cancer Hypertension Physician orders for life-sustaining treatment (POLST) form indicates patient wish for [id number] status Tonsil cancer Trismus Surgical History History of oral surgery Hx of knee surgery Social History Smoking/Tobacco Use Status: Current every day Tobacco Type: cigarettes Smoking packs per day: 0.25 Smoking cigarettes per day: 5.0 Smoking risk assessment performed?: Yes Alcohol Intake: former Drug use: Occasionally Substance use type: former substance user and marijuana What is your relationship status?: Panel score (0-1 are the most socially isolated patients): 1 Do you feel safe at home: Yes Do you feel safe in your relationship?: Yes
--- NOTE | 2021-09-07 11:18 | CMDISCH_ITS ---
- If Service Date Differs Date of service: 09/07/21 Time of Service: 11:18 LACE Index Scoring Tool - Questions: Length of Stay (in days): 4 - 6 Acuity (Admit via E.D.?): Yes Comorbidities: Any Tumor E.D. Visits: 1 - Answers: Total Score: 10 Risk of Readmission: High Risk Care Management Discharge Reason for Hospitalization: Upper GI bleeding, dehydration, nausea, intractable pain Discharge Plan: Debra will return home when ready, with new home health orders for RN/PT through [facility]. Palliative will continue to follow, as well as his PCP and [facility] for Palliative chemo. He will transport via private vehicle with his . Patient/Family Education Needs: Review discharge instructions, discuss Ask Me Three. Services Needed at Discharge: Home Health Care Services (RN/PT )
--- NOTE | 2021-09-07 11:19 | PDOC.HHF2F ---
Home Health Certification Home Health Certification: 1. Encounter Date and Reason I certify that Debra Mello was seen by Lucien Omer MD on 09/07/21 and that I had a [id number] encounter with this patient that meets the physician face to face encounter requirements. 2. Clinical Findings Supporting Skilled Need and Homebound Status I certify that home health services are medically necessary, include either intermittent retirement and/or physical/speech therapy, and that this patient is homebound in that absences from the home require considerable and taxing effort and are infrequent or of short duration, or are attributable to the need to receive medical care. [X] (a) Attached documentation from encounter provides clinical findings supporting skilled need and homebound status (including what assistance patient requires to leave the home). The encounter with the patient was in whole, or in part, for the following medical condition, which is the primary reason for home health care: Leukopenia, fever, anemia Senior Living:Monitor medications and skin integrity of his neck (radiation damage). Physical Therapy:Assess and intervene with gait, endurance and balance. Speech Therapy: Homebound:Debility d/t cancer and chemotherapy resulting in safety requirement of assistance when outside of the home. 3. Certification and Authentication I certify that I composed the above information based on my clinical judgement relating to this patient's medical condition and, if applicable, clinical findings communicated to me by the NPP or inpatient physician who performed the Home Health Referral. All further orders will be obtained through Lanny Mace (Community Based Physician - PCP)
--- NOTE | 2021-09-07 17:05 | CHAPLAIN ---
Justin was in bed when I visited. He was reserved in interacting and first, and engaged in a conversation about being raised by a Rastafari and a Yarsani parent and how he's integrated the faiths, but is committed to the Rastafari nayan. He said he is being discharged today. I offered him a prayer shawl to take home, and he said he would take one for his daughter. I brought a couple up for him to choose from and he accepted one for his daughter and kept one for himself as well. He also asked for a rosary. Justin is being treated for tonsil cancer and is followed by Palliative Care.
--- NOTE | 2021-09-07 18:00 | INDS_ITS ---
Date of service: 09/07/21 PT Notes Visit Reasons: Leukopenia, fever, anemia Physical Therapy Inpatient Discharge Summary Date: 09/07/2021 Dates of Service: 09/06/2021 through 09/07/2021 This is a clinical summary of care provided for the duration of dates listed above. No charge was made in the completion of this documentation. Referring Doctor:? Lucien Omer MD PT Orders: PT CONSULT: Eval/Treat Precautions: Fall. Standard. Activity as tolerated. Patient Profile/Admitting Diagnosis:? Justin is a 51-year-old male on palliative care with diagnosis of dehydration,? vomiting,? upper gastrointestinal bleeding,? neutropenic fever,? head and neck cancer status post chemoradiation.? PMHX: All Active Problems?(Updated 09/03/21 @ 22:57 by Magdaleno Amaya MD) DVT prophylaxis (Acute) Dehydration (Acute) Neutropenic fever (Acute) Upper GI bleeding (Acute) Vomiting (Acute) Palliative care patient (Acute) Medical History? Abnormal weight loss Cancer related pain DNI (do not intubate) DNR (do not resuscitate) Dysphagia Head and neck cancer Hypertension Physician orders for life-sustaining treatment (POLST) form indicates patient wish for [id number]-[id number] status Tonsil cancer Trismus Surgical History? History of oral surgery Hx of knee surgery Social History/Home Situation: Lives with and step father in a private home.? Independent with all aspects of ADLs without AD prior to admission. Equipment Owned/DME: None Subjective: NT. See most recent TECHNICAL SUPPORT REPRESENTATIVE notes. Objective: General Observation: Supine in bed.? NT. See most recent TECHNICAL SUPPORT REPRESENTATIVE notes. Mental Status: NT. See most recent TECHNICAL SUPPORT REPRESENTATIVE notes. Pain: NT. See most recent TECHNICAL SUPPORT REPRESENTATIVE notes. Vital Signs: NT. See most recent TECHNICAL SUPPORT REPRESENTATIVE notes. ROM: Right Upper Extremity:? Shoulder Flexion WFL. Shoulder abduction WFL. Elbow flexion WFL. Wrist flexion WFL. Functional opening and closing of hand WFL. Left Upper Extremity:? Shoulder Flexion WFL. Shoulder abduction WFL. Elbow flexion WFL. Wrist flexion WFL. Functional opening and closing of hand WFL. Right Lower Extremity: Hip flexion WFL. Hip abduction WFL. Knee flexion WFL. Ankle dorsiflexion WFL. Ankle plantarflexion WFL. Left Lower Extremity: Hip flexion WFL. Hip abduction WFL. Knee flexion WFL. Ankle dorsiflexion WFL. Ankle plantarflexion WFL. Strength: Right Upper Extremity: Shoulder flexors 4-/5. Shoulder abductors 4-/5. Elbow flexors 4-/5. Elbow extensors 4-/5. Table Games Shift Manager strong. Left Upper Extremity: Shoulder flexors 4-/5. Shoulder abductors 4-/5. Elbow flexors 4-/5. Elbow extensors 4-/5. Table Games Shift Manager strong. Right Lower Extremity: Hip flexors 4/5. Hip abductors 4/5. Knee flexors 4/5. Knee extensors 4/5. Ankle dorsiflexors 4/5. Ankle plantarflexors 4/5. Left Lower Extremity: Hip flexors 4/5. Hip abductors 4/5. Knee flexors 4/5. Knee extensors 4/5. Ankle dorsiflexors 4/5. Ankle plantarflexors 4/5. Bed Mobility/Transfers: Rolling independent Supine to sit? independent Sit to supine independent Sit to stand independent Stand to sit? independent Bed to bedside commode? independent Bedside commode to bed? independent Bed to reclining chair with? independent Reclining chair to bed with? independent Gait: Independent on level surface ambulation of the 500 feet using no assistive device. Gait pattern unremarkable. Balance: Static Sitting: Normal Dynamic Sitting: Normal Static Standing: Good Dynamic Standing:Good Assessment: Patient demonstrates functional mobility improvement as evidenced by achievement of all goals below. Goals: Goals X1 week 1. Supine-Sit independent MET 2. Sit-Supine independent MET 3. Sit-Stand independent MET 4. Stand-Sit independent with no AD MET 5. Bed-Chair independent with no AD MET 6. Chair-Bed independent with no AD MET 7. Independent gait on level surface with use of with no AD for at least 300 feet without report of pain nor dyspnea MET 8. Independent stair negotiation while holding onto B rails for at least 5 steps without report of pain nor dyspnea MET 9. Good static and dynamic standing balance/tolerance MET DISCHARGE RECOMMENDATIONS: [] ? Home with no services [] [X] ? Home with services. Patient will benefit from retirement facility placement for continued skilled physical therapy services in order to progress mobility level, strength, and balance in preparation for a safe discharge to home. [] ? Home with outpatient PT [] [] ? SNF for continued rehabilitation [] [] ? Custodial Care [] [] ? SNF versus LTC based on ability to participate and progress [] TREATMENT CODE/TIME: JUAN Thank you for the opportunity to participate in the care of this patient. Louisa Rodriguez PT, DPT, CLT [facility] [place], [place]
== END 2021-09-07 11:58 | disposition home health service (06) | DRG 809 ==
LOC: MS 15:57 → ICU 16:39
PROVIDERS: Family Medicine; Nurse Practitioner Family; Admitting Provider Internal Medicine; PCP Nurse Practitioner Family; Visit Provider Internal Medicine
DX: D70.9 Neutropenia, unspecified (principal); R50.81 Fever presenting with conditions classified elsewhere; K92.0 Hematemesis; Z66 Do not resuscitate; L03.221 Cellulitis of neck; C09.9 Malignant neoplasm of tonsil, unspecified; R13.10 Dysphagia, unspecified; G89.3 Neoplasm related pain (acute) (chronic); K12.31 Oral mucositis (ulcerative) due to antineoplastic therapy; E87.6 Hypokalemia; E86.0 Dehydration; R25.2 Cramp and spasm; I10 Essential (primary) hypertension; F17.210 Nicotine dependence, cigarettes, uncomplicated; Z93.1 Gastrostomy status; Z22.322 Carrier or suspected carrier of Methicillin resistant Staphylococcus aureus; K59.03 Drug induced constipation; T40.605A Adverse effect of unspecified narcotics, initial encounter
CPT/HCPCS: 36415; 36430; 36591; 80048; 86850; 86900; 86901; 86920; 87040; 87081; 87635; 97162; 97530; J3490; 71045; 74018; 80202; 81003; 82140; 83735; 85014; 85018; 85025; 87086; 99232; 99233; 99239; 99291; J0131; J1170; J1200; J2310; J2765; J3475; J3480; P9016

== ENCOUNTER 2021-09-03 15:11 | Outpatient (REF) | payer MEDICAID, SELFPAY ==
[2021-09-03 13:58] LABS: Absolute Eosinophil Count 0.02 10^3/uL (0.0-0.7); HGB 7.7 g/dL (13.5-17.5); MCH 28.9 pg (27.0-33.0); MCHC 33.5 % (32.0-36.0); MCV 87 fL (80-95); MPV 10.4 fL (8.0-11.0); RBC 2.66 10^6/uL (4.36-5.78); RDW 16.6 % (11.8-14.1); RDW-SD 50.8 fL
[2021-09-03 14:13] LABS: Platelet Count 108 10^3/uL (130-400); WBC 1.02 10^3/uL (4.4-10.8)
[2021-09-03 14:14] LABS: ALT 10 U/L (16-63); AST 15 U/L (15-37); Albumin 2.5 g/dL (3.4-5.0); Alkaline Phosphatase 53 U/L (46-116); Anion Gap 8.7 mmol/L (3-11); BUN 22 mg/dL (7-18); Bilirubin, Total 0.7 mg/dL (0.2-1.0); CO2 34.3 mmol/L (21.0-32.0); CREATININE 1.2 mg/dL (0.70-1.30); Calcium 7.8 mg/dL (8.5-10.1); Chloride 95 mmol/L (98-107); Glucose 90 mg/dL (74-106); Magnesium 1.1 mg/dL (1.8-2.4); Potassium 3.2 mmol/L (3.5-5.1); Sodium 138 mmol/L (136-145); Total Protein 5.7 g/dL (6.4-8.2)
[2021-09-03 14:19] LABS: Absolute Lymphocyte Count 0.22 10^3/uL (1.2-3.4); Absolute Monocyte Count 0.22 10^3/uL (0.1-0.8); Absolute Neutrophil Count 0.55 10^3/uL (1.2-6.7); Bands % 4; Diff Comment Manual Differential; RBC Morphology Normal
== END 2021-09-03 15:12 | disposition home or self-care (01) ==
LOC: LBN 15:11
PROVIDERS: PCP Nurse Practitioner Family; Visit Provider Internal Medicine Hematology & Oncology
DX: C09.9 Malignant neoplasm of tonsil, unspecified (principal); E86.0 Dehydration; R11.2 Nausea with vomiting, unspecified
CPT/HCPCS: 80053; 83735; 85025

== ENCOUNTER 2021-09-13 01:12 | Outpatient (RCR) | payer MEDICAID, SELFPAY ==
[2021-08-31] MEDS: Normal Saline Flush 10 ML SYR IVP (10:41)
[2021-08-31 11:19] LABS: Absolute Basophil Count 0.01 10^3/uL (0.0-0.2); Absolute Eosinophil Count 0.02 10^3/uL (0.0-0.7); Absolute Monocyte Count 0.18 10^3/uL (0.1-0.8); Absolute Neutrophil Count 0.74 10^3/uL (1.2-6.7); Basophils % 0.7; Eosinophils % 1.5; HCT 27.4 % (40.0-50.0); Lymphocytes % 29.6; MCH 28.8 pg (27.0-33.0); MCHC 32.8 % (32.0-36.0); MCV 88 fL (80-95); MPV 9.9 fL (8.0-11.0); Monocytes % 13.3; Neutrophils % 54.9; Platelet Count 112 10^3/uL (130-400); RBC 3.13 10^6/uL (4.36-5.78); RDW 16.2 % (11.8-14.1); RDW-SD 50.2 fL
[2021-08-31 11:35] LABS: ALT 12 U/L (16-63); AST 19 U/L (15-37); Albumin 2.9 g/dL (3.4-5.0); Alkaline Phosphatase 63 U/L (46-116); BUN 25 mg/dL (7-18); Bilirubin, Total 0.5 mg/dL (0.2-1.0); CREATININE 1.4 mg/dL (0.70-1.30); Calcium 7.2 mg/dL (8.5-10.1); Chloride 95 mmol/L (98-107); Estimated GFR 53.22 (mL/min/1.73m2); Glucose 90 mg/dL (74-106); Sodium 137 mmol/L (136-145); Total Protein 6.3 g/dL (6.4-8.2)
[2021-08-31 11:40] LABS: Potassium 2.8 mmol/L (3.5-5.1)
[2021-08-31 11:41] LABS: WBC 1.35 10^3/uL (4.4-10.8)
[2021-08-31 11:49] LABS: Diff Comment Agrees w/ Instrument; RBC Morphology Normal
== END 2021-09-26 23:59 | disposition home or self-care (01) ==
LOC: INF 01:12
PROVIDERS: PCP Nurse Practitioner Family; Visit Provider Internal Medicine Hematology & Oncology
DX: C09.9 Malignant neoplasm of tonsil, unspecified (principal); Z45.2 Encounter for adjustment and management of vascular access device
CPT/HCPCS: 36591; 80053; 83735; 85025

== ENCOUNTER 2021-10-04 10:00 | Outpatient (RCR) | payer MEDICAID, SELFPAY ==
[2021-10-04 13:46] LABS: Abs Immature Grans 0.03 10^3/uL (0.0-0.06); Absolute Basophil Count 0.05 10^3/uL (0.0-0.2); Absolute Eosinophil Count 0.14 10^3/uL (0.0-0.7); Absolute Lymphocyte Count 0.62 10^3/uL (1.2-3.4); Absolute Monocyte Count 0.59 10^3/uL (0.1-0.8); Eosinophils % 2.8; HCT 29.9 % (40.0-50.0); HGB 10.2 g/dL (13.5-17.5); Immature Grans % 0.6; Lymphocytes % 12.6; MCH 30.6 pg (27.0-33.0); MCHC 34.1 % (32.0-36.0); MCV 90 fL (80-95); MPV 10.2 fL (8.0-11.0); Platelet Count 169 10^3/uL (130-400); RBC 3.33 10^6/uL (4.36-5.78); RDW 16.2 % (11.8-14.1); RDW-SD 53.4 fL; WBC 4.93 10^3/uL (4.4-10.8)
[2021-10-04] MEDS: Normal Saline Flush 10 ML SYR IVP (13:49)
[2021-10-04] MEDS: Heparin 500 UNITS/5 ML SYRINGE (13:50)
[2021-10-04 14:10] LABS: ALT 20 U/L (16-63); AST 19 U/L (15-37); Albumin 3.1 g/dL (3.4-5.0); Alkaline Phosphatase 75 U/L (46-116); Anion Gap 5.5 mmol/L (3-11); BUN 32 mg/dL (7-18); Bilirubin, Total 0.6 mg/dL (0.2-1.0); CO2 34.5 mmol/L (21.0-32.0); CREATININE 1.7 mg/dL (0.70-1.30); Chloride 95 mmol/L (98-107); Estimated GFR 42.54 (mL/min/1.73m2); Glucose 105 mg/dL (74-106); Potassium 3.8 mmol/L (3.5-5.1); Sodium 135 mmol/L (136-145); TSH 0.44 uIU/mL (0.36-3.74); Total Protein 6.8 g/dL (6.4-8.2)
== END 2021-10-27 23:59 | disposition home or self-care (01) ==
LOC: INF 10:00
PROVIDERS: PCP Nurse Practitioner Family; Visit Provider Internal Medicine Hematology & Oncology
DX: Z45.2 Encounter for adjustment and management of vascular access device (principal); C09.9 Malignant neoplasm of tonsil, unspecified
CPT/HCPCS: 36591; 80053; 84443; 85025

== ENCOUNTER 2021-10-15 02:12 | Emergency (ER) | payer MEDICAID, SELFPAY ==
[2021-10-15 02:15] VITALS: BP 132/104; PULSE 77; RESP 18; TEMP 36.6; O2SAT 98
[2021-10-15 02:19] VITALS: RESP 18
--- NOTE | 2021-10-15 02:20 | W.ED.GENAD ---
Discharge Plan Disposition Patient Disposition: HOME Condition: Good Discharge Details Clinical Impression: PEG tube malfunction Primary Care Provider: REAL RANGEL ED Provider: Tavo Jasso Home Meds and New Rx's Prescriptions: No Action fentanyl 100 mcg/hr patch 72 hour 1 patch transdermal Q72H MDD 1 patch Qty: 10 0RF Rx Instructions: for cancer related pain prochlorperazine maleate 5 mg tablet 5 mg PO QID PRN (Reason: nausea and vomiting) Qty: 60 3RF hydromorphone 1 mg/mL liquid 2 - 4 mg feeding tube Q4H MDD 24 mg PRN (Reason: pain) Qty: 473 0RF Rx Instructions: for cancer related pain. unable to take PO. metoclopramide HCl 5 mg/5 mL solution 5 mg feeding tube Q8H PRN Qty: 473 0RF Rx Instructions: palliative patient, cannot take PO methylphenidate HCl 10 mg/5 mL solution 20 mg feeding tube DAILY MDD 10 mg Qty: 500 0RF Rx Instructions: For cancer related fatigue. Unable to take PO due to cancer. Palliative care patient. silver sulfadiazine [SSD] 1 % Cream 1 applic topical BID Qty: 50 0RF Rx Instructions: apply to neck Discharge Instructions Additional Instructions: As always, please continue to monitor your PEG tube closely. If you notice any discomfort or leaking please return immediately. If you notice any worsening of your symptoms, or any new symptoms such as vomiting, diarrhea, fever, chills, shortness of breath, chest pain, numbness, weakness, or fainting , please return immediately to the emergency department for reevaluation. Please follow up with your primary care provider as soon as possible for reassessment and reevaluation. As always, it was a pleasure participating in your medical care today. Referrals: REAL RANGEL, FURNITURE REPAIRER [Primary Care Provider] - Medical Decision Making This is a pleasant 51-year-old male with a past medical history of cancer, who has a chronic PEG tube, who presents today for the PEG tube falling out. Patient states that it occurred while he was in the sleep. He denies any pain nausea or vomiting. He denies any other complaints at this time. This is happened in the past. PEG tube came out about 15 to 30 minutes prior to arrival. PEG tube was reinserted without complication. Patient tolerated procedure well. I have extensively reviewed the treatment plan and discharge instructions with the patient. I have addressed all patient concerns at this time. The patient was made aware of what symptoms to monitor for that would warrant a return to the emergency department. Discussed the plan with the patient, they demonstrate verbal understanding and agreement with our assessment and plan at this time. The documentation in this chart was dictated using [email or web address] dictation software. Please excuse any dictation errors. HPI General Date/Time Provider Initiated Documentation: 10/15/21 02:13. HPI Narrative: This is a pleasant 51-year-old male with a past medical history of cancer, who has a chronic PEG tube, who presents today for the PEG tube falling out. Patient states that it occurred while he was in the sleep. He denies any pain nausea or vomiting. He denies any other complaints at this time. This is happened in the past. Related Data Home Medications Medication Instructions Recorded Confirmed prochlorperazine maleate 5 mg 5 mg PO QID PRN nausea and 03/18/21 10/15/21 tablet vomiting #60 tabs silver sulfadiazine 1 % topical 1 applic topical BID #50 grams 09/07/21 10/15/21 cream (SSD) hydromorphone 1 mg/mL oral liquid 2 - 4 mg (2 - 4 mL) feeding tube 09/09/21 10/15/21 Q4H PRN pain #473 mL methylphenidate HCl 10 mg/5 mL 20 mg (10 mL) feeding tube DAILY 10/02/21 10/15/21 oral solution #500 mL metoclopramide HCl 5 mg/5 mL oral 5 mg (5 mL) feeding tube Q8H PRN 10/02/21 10/15/21 solution #473 mL fentanyl 100 mcg/hr transdermal 1 patch transdermal Q72H #10 ea 10/14/21 10/15/21 patch Previous Rx's Medication Instructions Recorded prochlorperazine maleate 5 mg 5 mg PO QID PRN nausea and 03/18/21 tablet vomiting #60 tabs silver sulfadiazine 1 % topical 1 applic topical BID #50 grams 09/07/21 cream (SSD) hydromorphone 1 mg/mL oral liquid 2 - 4 mg (2 - 4 mL) feeding tube 09/09/21 Q4H PRN pain #473 mL methylphenidate HCl 10 mg/5 mL 20 mg (10 mL) feeding tube DAILY 10/02/21 oral solution #500 mL metoclopramide HCl 5 mg/5 mL oral 5 mg (5 mL) feeding tube Q8H PRN 10/02/21 solution #473 mL fentanyl 100 mcg/hr transdermal 1 patch transdermal Q72H #10 ea 10/14/21 patch Allergies Allergy/AdvReac Type Severity Reaction Status Date / Time mercury (elemental) Allergy Verified 10/15/21 02:22 shellfish derived Allergy Verified 10/15/21 02:22 General Stated Complaint: GenMedical ANGELA: 4 Review of Systems All systems reviewed & are unremarkable except as noted in HPI and below PFSH All Active Problems (Updated 10/15/21 @ 02:23 by Tavo Jasso DO) PEG tube malfunction (Acute) Constipation (Acute) Palliative care patient (Acute) Medical History Abnormal weight loss Cancer related pain DNI (do not intubate) DNR (do not resuscitate) Dysphagia Head and neck cancer Hypertension Physician orders for life-sustaining treatment (POLST) form indicates patient wish for wn-[id number] status Tonsil cancer Trismus Surgical History History of oral surgery Hx of knee surgery Social History Smoking/Tobacco Use Status: Current every day Tobacco Type: cigarettes Smoking packs per day: 0.25 Smoking cigarettes per day: 5.0 Smoking risk assessment performed?: Yes Alcohol Intake: former Drug use: Occasionally Substance use type: former substance user and marijuana What is your relationship status?: Panel score (0-1 are the most socially isolated patients): 1 Do you feel safe at home: Yes Do you feel safe in your relationship?: Yes Exam Narrative Exam Narrative: 1.Const: Well-nourished, Well-developed, appearing stated age 2.Eyes: PERRL, no conjunctival injection, and symmetrical lids. 3.ENT: Atraumatic external nose and ears. Moist MM. Neck: Symmetric, trachea midline, No thyromegaly. 4.CVS: +S1/S2, No murmurs or gallops. Peripheral pulses 2+ and equal in all extremities. Brisk capillary refill in all extremities. 5.RESP: Unlabored respiratory effort. Clear to auscultation bilaterally. No wheezes rales or rhonchi 6.GI: Soft, Nontender/Nondistended, PEG tube site is unremarkable. No active bleeding. No tenderness. No discharge. PEG tube removed. 7.MSK: Normocephalic/Atraumatic, Extremities w/o deformity or ttp No cyanosis or clubbing, Normal movement of all extremities 8.Skin: Warm, Dry. No rashes or lesions. 9.Neuro: environmental scientists II-XII grossly intact. Sensation grossly intact, no focal neurologic deficits. 10.Psych: (AAO) x3. Appropriate mood and affect Course Vital Signs Vital signs: Vital Signs Temperature 36.6 C 10/15/21 02:15 Pulse 77 10/15/21 02:15 Respiratory Rate 18 10/15/21 02:15 Blood Pressure 132/104 H 10/15/21 02:15 Pulse Oximetry 98 10/15/21 02:15 Temperature 36.6 C 10/15/21 02:15 Temperature Source Tympanic 10/15/21 02:15 Pulse 77 10/15/21 02:15 Respiratory Rate 18 10/15/21 02:15 Blood Pressure 132/104 H 10/15/21 02:15 Blood Pressure Position Sitting 10/15/21 02:15 Pulse Oximetry 98 10/15/21 02:15 Oxygen Delivery Method Room Air 10/15/21 02:15 Oxygen Flow Rate 0 10/15/21 02:15 Pain Level 0 10/15/21 02:15 Procedures Feeding Tube Replacement Type of Tube: gastrostomy Insertion Site Prior to Procedure: clean Tube Used for Reinsertion: patient's own Irish Tube Size (F): 16 Balloon size (mL): 5 Verification of Placement: auscultation Tube Secured by: G-tube attachment device Patient Tolerated Procedure: well and no complications
== END 2021-10-15 03:07 | disposition home or self-care (01) ==
PROVIDERS: Emergency Provider Student in an Organized Health Care Education/Training Program; PCP Nurse Practitioner Family
DX: K94.23 Gastrostomy malfunction (principal); I10 Essential (primary) hypertension; F17.210 Nicotine dependence, cigarettes, uncomplicated
CPT/HCPCS: 43762; 99282

== ENCOUNTER 2021-10-24 12:41 | Observation (INO) | payer MEDICAID, SELFPAY ==
[2021-10-24] VITALS (7 sets, daily range): BP systolic 129–159; BP diastolic 69–91; PULSE 68–84; RESP 14–18; TEMP 37–38; O2SAT 97–100
--- NOTE | 2021-10-24 12:45 | RT.EKG_ITS ---
APPROVED REPORT Exam: Resting ECG Reason for Exam: chest pain Patient Location: E HR:75 bpm ECG Measurements Heart Rate 75 AXIS LA 137 P 66 QRSd 96 QRS 57 QT 400 T 35 QTc 447 Conclusion Sinus rhythm...normal P axis, V-rate 60- 99 sinus rhythm, normal axis, normal intervals, non ischemic
--- NOTE | 2021-10-24 13:15 | DI.RAD_ITS ---
Exam(s) XR PORTABLE CHEST AP EXAM: XR PORTABLE CHEST AP CLINICAL HISTORY: fever/ams. TECHNIQUE: 2D digital imaging was performed. COMPARISON: CR XR PORTABLE CHEST AP from 09/07/2021 FINDINGS: Single AP portable view. Distal tip of the Port-A-Cath is in satisfactory position in the SVC. Heart size is upper normal. The mediastinum is not widened. Lungs are clear. No infiltrates nor obvious pleural effusions. IMPRESSION: No acute pulmonary findings on this single AP portable view of the chest. DATA REPOSITORY: RADIATION DOSE DELIVERED: All CT scans at this facility use at least one of these dose optimization techniques: automated exposure control; mA and/or kV adjustment per patient size (includes targeted e xams where dose is matched to clinical indication); or iterative reconstruction.
[2021-10-24 13:40] LABS: Abs Immature Grans 0.01 10^3/uL (0.0-0.06); Absolute Basophil Count 0.03 10^3/uL (0.0-0.2); Absolute Eosinophil Count 0.06 10^3/uL (0.0-0.7); Absolute Lymphocyte Count 0.22 10^3/uL (1.2-3.4); Absolute Monocyte Count 0.44 10^3/uL (0.1-0.8); Absolute Neutrophil Count 2.46 10^3/uL (1.2-6.7); Basophils % 0.9; Eosinophils % 1.9; HCT 27.9 % (40.0-50.0); HGB 9.4 g/dL (13.5-17.5); Immature Grans % 0.3; Lymphocytes % 6.8; MCH 30.6 pg (27.0-33.0); MCHC 33.7 % (32.0-36.0); MCV 91 fL (80-95); MPV 10.7 fL (8.0-11.0); Monocytes % 13.7; Neutrophils % 76.4; Platelet Count 137 10^3/uL (130-400); RBC 3.07 10^6/uL (4.36-5.78); RDW 14.3 % (11.8-14.1); RDW-SD 47.7 fL; WBC 3.22 10^3/uL (4.4-10.8)
[2021-10-24 13:42] LABS: ESR 18 mm/hr (0-20)
[2021-10-24 13:51] LABS: INR 1.1 (0.9-1.1); Prothrombin Time 11.4 sec (9.3-11.0)
[2021-10-24 13:55] LABS: ALT 20 U/L (16-63); AST 24 U/L (15-37); Albumin 3.4 g/dL (3.4-5.0); Alkaline Phosphatase 59 U/L (46-116); Anion Gap 5.7 mmol/L (3-11); BUN 32 mg/dL (7-18); Bilirubin, Total 0.6 mg/dL (0.2-1.0); C-Reactive Protein 0.05 mg/dL (0.0-0.3); CO2 34.3 mmol/L (21.0-32.0); CREATININE 1.7 mg/dL (0.70-1.30); Calcium 9.3 mg/dL (8.5-10.1); Chloride 101 mmol/L (98-107); Estimated GFR 42.54 (mL/min/1.73m2); Glucose 116 mg/dL (74-106); Potassium 3.2 mmol/L (3.5-5.1); Sodium 141 mmol/L (136-145); Total Protein 6.8 g/dL (6.4-8.2)
[2021-10-24] MEDS: Normal Saline 1,000 ML 1000 ML IV (14:06)
[2021-10-24 14:16] LABS: Influenza A PCR Negative (Negative); Influenza B PCR Negative (Negative); RSV PCR Negative (Negative)
[2021-10-24 14:21] LABS: COVID-19 PCR Positive (Negative)
--- NOTE | 2021-10-24 14:23 | DI.VRAD_ITS ---
PROCEDURE INFORMATION: Exam: XR Chest Exam date and time: 10/24/2021 1:33 PM Age: 51 years old Clinical indication: Fever; Patient HX: HX tonsil CA TECHNIQUE: Imaging protocol: Radiologic exam of the chest. Views: 1 view. COMPARISON: CR XR PORTABLE CHEST AP 09/07/2021 8:46 AM FINDINGS: Tubes, catheters and devices: MediPort terminates in the superior vena cava Patient is rotated to the left Lungs: Unremarkable. No consolidation. Pleural spaces: Unremarkable. No pleural effusion. No pneumothorax. Heart/Mediastinum: Unremarkable. No cardiomegaly. Bones/joints: Unremarkable. IMPRESSION: No acute process Dictated and Authenticated by: Javier Low MD. Ordering:SAM Dolan MD
--- NOTE | 2021-10-24 14:41 | ED.GENADUL_ITS ---
Discharge Plan Disposition Patient Disposition: [facility] INPATIENT Condition: Serious Discharge Details Clinical Impression: COVID Primary Care Provider: REAL RANGEL ED Provider: Magdaleno Sanchez Home Meds and New Rx's Prescriptions: No Action fentanyl 100 mcg/hr patch 72 hour 1 patch transdermal Q72H MDD 1 patch Qty: 10 0RF Rx Instructions: for cancer related pain prochlorperazine maleate 5 mg tablet 5 mg PO QID PRN (Reason: nausea and vomiting) Qty: 60 3RF hydromorphone 1 mg/mL liquid 2 - 4 mg feeding tube Q4H MDD 24 mg PRN (Reason: pain) Qty: 473 0RF Rx Instructions: for cancer related pain. unable to take PO. metoclopramide HCl 5 mg/5 mL solution 5 mg feeding tube Q8H PRN Qty: 473 0RF Rx Instructions: palliative patient, cannot take PO methylphenidate HCl 10 mg/5 mL solution 20 mg feeding tube DAILY MDD 10 mg Qty: 500 0RF Rx Instructions: For cancer related fatigue. Unable to take PO due to cancer. Palliative care patient. silver sulfadiazine [SSD] 1 % Cream 1 applic topical BID Qty: 50 0RF Rx Instructions: apply to neck Medical Decision Making 51-year-old gentleman DNR, DNI, palliative care patient, contemplating pursuing hospice, past history of hypertension, metastatic neck CA, no longer seeking therapy, presents for subjective fever, generalized weakness, dry cough, decreased responsiveness of the past 24 hours. Clinically he appears chronically ill, vital signs are unremarkable, afebrile, O2 sat 100% on room air. No signs of overt trauma. Given his subjective fever last night we will initiate septic work-up, no nuchal rigidity, low suspicion for meningitis. We will provide 1 L IV fluid. A white blood cell count of 3.22 hemoglobin 9.4 hematocrit 27.9 platelet count 137. INR 1.1 lactate 1.6 potassium 3.2 creatinine 1.7 GFR 42.54. CRP is 0.05, ESR 18, Pro-Rito pending. Chest x-ray unremarkable COVID-positive, clear source of infection. Will cancel will be head CT Given his profound general weakness, nonvaccinated state, comorbidities, will discuss the case with our hospitalist team for admission Case discussed with Dr. Omer who is agreeable to admit the patient and will write admission orders This documentation was generated using [employer]aj[employer]ation system, please disregard any oddities of phrase or misspellings. Medical Records Medical records reviewed: Yes I reviewed the patient's medical records. Imaging Data Radiologic Study: Attestation: I personally reviewed and interpreted this imaging study as follows: Imaging: X-Ray Radiologist's impression: PROCEDURE INFORMATION: Exam: XR Chest Exam date and time: 10/24/2021 1:33 PM Age: 51 years old Clinical indication: Fever; Patient HX: HX tonsil CA TECHNIQUE: Imaging protocol: Radiologic exam of the chest. Views: 1 view. COMPARISON: CR XR PORTABLE CHEST AP 09/07/2021 8:46 AM FINDINGS: Tubes, catheters and devices: MediPort terminates in the superior vena cava Patient is rotated to the left Lungs: Unremarkable. No consolidation. Pleural spaces: Unremarkable. No pleural effusion. No pneumothorax. Heart/Mediastinum: Unremarkable. No cardiomegaly. Bones/joints: Unremarkable. IMPRESSION: No acute process Lab Data Lab results reviewed: Yes I reviewed the patient's lab results. Labs: 10/24/21 14:37 Blood Blood Culture - Pending 10/24/21 14:21 Blood Blood Culture - Pending Laboratory Tests Range/Units 10/24/21 10/24/21 10/24/21 13:20 13:20 13:20 WBC (4.4-10.8) 10^3/uL 3.22 L RBC (4.36-5.78) 10^6/uL 3.07 L Hgb (13.5-17.5) g/dL 9.4 L Hct (40.0-50.0) % 27.9 L MCV (80-95) fL 91 MCH (27.0-33.0) pg 30.6 MCHC (32.0-36.0) % 33.7 RDW (11.8-14.1) % 14.3 H Plt Count (130-400) 10^3/uL 137 MPV (8.0-11.0) fL 10.7 Immature Gran % 0.3 Neutrophils % 76.4 Lymphocytes % 6.8 Monocytes % 13.7 Eosinophils % 1.9 Basophils % 0.9 Nucleated RBC % (0.0-0.3) % 0.0 Absolute Neutrophils (1.2-6.7) 10^3/uL 2.46 Absolute Lymphocytes (1.2-3.4) 10^3/uL 0.22 L Absolute Monocytes (0.1-0.8) 10^3/uL 0.44 Absolute Eosinophils (0.0-0.7) 10^3/uL 0.06 Absolute Basophils (0.0-0.2) 10^3/uL 0.03 ESR (0-20) mm/hr PT (9.3-11.0) sec INR (0.9-1.1) VBG Lactate (0.6-1.4) mmol/L Sodium (136-145) mmol/L 141 Potassium (3.5-5.1) mmol/L 3.2 L Chloride (98-107) mmol/L 101 Carbon Dioxide (21.0-32.0) mmol/L 34.3 H Anion Gap (3-11) mmol/L 5.7 BUN (7-18) mg/dL 32 H Creatinine (0.70-1.30) mg/dL 1.7 H Estimated GFR/1.73 m2 (mL/min/1.73m2) 42.54 Glucose (74-106) mg/dL 116 H Calcium (8.5-10.1) mg/dL 9.3 Total Bilirubin (0.2-1.0) mg/dL 0.6 AST (15-37) U/L 24 ALT (16-63) U/L 20 Alkaline Phosphatase (46-116) U/L 59 Troponin I Cancelled C-Reactive Protein (0.0-0.3) mg/dL 0.05 Total Protein (6.4-8.2) g/dL 6.8 Albumin (3.4-5.0) g/dL 3.4 COVID-19 Source SARS-CoV-2 (PCR) (Negative) Influenza Type A (PCR) (Negative) Influenza Type B (PCR) (Negative) RSV (PCR) (Negative) Range/Units 10/24/21 10/24/21 10/24/21 13:20 13:20 13:20 WBC (4.4-10.8) 10^3/uL RBC (4.36-5.78) 10^6/uL Hgb (13.5-17.5) g/dL Hct (40.0-50.0) % MCV (80-95) fL MCH (27.0-33.0) pg MCHC (32.0-36.0) % RDW (11.8-14.1) % Plt Count (130-400) 10^3/uL MPV (8.0-11.0) fL Immature Gran % Neutrophils % Lymphocytes % Monocytes % Eosinophils % Basophils % Nucleated RBC % (0.0-0.3) % Absolute Neutrophils (1.2-6.7) 10^3/uL Absolute Lymphocytes (1.2-3.4) 10^3/uL Absolute Monocytes (0.1-0.8) 10^3/uL Absolute Eosinophils (0.0-0.7) 10^3/uL Absolute Basophils (0.0-0.2) 10^3/uL ESR (0-20) mm/hr 18 PT (9.3-11.0) sec 11.4 H INR (0.9-1.1) 1.1 VBG Lactate (0.6-1.4) mmol/L Sodium (136-145) mmol/L Potassium (3.5-5.1) mmol/L Chloride (98-107) mmol/L Carbon Dioxide (21.0-32.0) mmol/L Anion Gap (3-11) mmol/L BUN (7-18) mg/dL Creatinine (0.70-1.30) mg/dL Estimated GFR/1.73 m2 (mL/min/1.73m2) Glucose (74-106) mg/dL Calcium (8.5-10.1) mg/dL Total Bilirubin (0.2-1.0) mg/dL AST (15-37) U/L ALT (16-63) U/L Alkaline Phosphatase (46-116) U/L Troponin I C-Reactive Protein (0.0-0.3) mg/dL Total Protein (6.4-8.2) g/dL Albumin (3.4-5.0) g/dL COVID-19 Source Not Applicable SARS-CoV-2 (PCR) (Negative) Positive A Influenza Type A (PCR) (Negative) Negative Influenza Type B (PCR) (Negative) Negative RSV (PCR) (Negative) Negative Range/Units 10/24/21 14:37 WBC (4.4-10.8) 10^3/uL RBC (4.36-5.78) 10^6/uL Hgb (13.5-17.5) g/dL Hct (40.0-50.0) % MCV (80-95) fL MCH (27.0-33.0) pg MCHC (32.0-36.0) % RDW (11.8-14.1) % Plt Count (130-400) 10^3/uL MPV (8.0-11.0) fL Immature Gran % Neutrophils % Lymphocytes % Monocytes % Eosinophils % Basophils % Nucleated RBC % (0.0-0.3) % Absolute Neutrophils (1.2-6.7) 10^3/uL Absolute Lymphocytes (1.2-3.4) 10^3/uL Absolute Monocytes (0.1-0.8) 10^3/uL Absolute Eosinophils (0.0-0.7) 10^3/uL Absolute Basophils (0.0-0.2) 10^3/uL ESR (0-20) mm/hr PT (9.3-11.0) sec INR (0.9-1.1) VBG Lactate (0.6-1.4) mmol/L 1.6 H Sodium (136-145) mmol/L Potassium (3.5-5.1) mmol/L Chloride (98-107) mmol/L Carbon Dioxide (21.0-32.0) mmol/L Anion Gap (3-11) mmol/L BUN (7-18) mg/dL Creatinine (0.70-1.30) mg/dL Estimated GFR/1.73 m2 (mL/min/1.73m2) Glucose (74-106) mg/dL Calcium (8.5-10.1) mg/dL Total Bilirubin (0.2-1.0) mg/dL AST (15-37) U/L ALT (16-63) U/L Alkaline Phosphatase (46-116) U/L Troponin I C-Reactive Protein (0.0-0.3) mg/dL Total Protein (6.4-8.2) g/dL Albumin (3.4-5.0) g/dL COVID-19 Source SARS-CoV-2 (PCR) (Negative) Influenza Type A (PCR) (Negative) Influenza Type B (PCR) (Negative) RSV (PCR) (Negative) ECG Data Attestation: I personally reviewed and interpreted this ECG (s) as follows: Interpretation: Sinus rhythm, ventricular 75, no STEMI. HPI General Mode of arrival: wheelchair . Date/Time Provider Initiated Documentation: 10/24/21 12:42 . Limitations to Documentation: altered mental status . Information obtained by: patient and family . HPI Narrative: This is a 51-year-old gentleman, palliative care patient, DNR, DNI, past medical history of metastatic neck cancer, hypertension, PEG tube in place, not vaccinated for COVID, no longer seeking treatment for his cancer, meeting with his palliative care team later next week to discuss potential hospice, presents to the ER for generalized weakness, decreased responsiveness, dry cough, body aches, subjective fever that began yesterday. No medications given prior to presentation. Denies headache, posterior neck pain, chest pain, abdominal pain, nausea, vomiting, diarrhea. Patient has been having normal intake and normal output. Unfortunately his spouse is a rather vague and poor historian and the patient has a decreased level of responsiveness. Related Data Home Medications Medication Instructions Recorded Confirmed prochlorperazine maleate 5 mg 5 mg PO QID PRN nausea and 03/18/21 10/24/21 tablet vomiting #60 tabs silver sulfadiazine 1 % topical 1 applic topical BID #50 grams 09/07/21 10/24/21 cream (SSD) hydromorphone 1 mg/mL oral liquid 2 - 4 mg (2 - 4 mL) feeding tube 09/09/21 10/24/21 Q4H PRN pain #473 mL methylphenidate HCl 10 mg/5 mL 20 mg (10 mL) feeding tube DAILY 10/02/21 10/24/21 oral solution #500 mL metoclopramide HCl 5 mg/5 mL oral 5 mg (5 mL) feeding tube Q8H PRN 10/02/21 10/24/21 solution #473 mL fentanyl 100 mcg/hr transdermal 1 patch transdermal Q72H #10 ea 10/14/21 10/24/21 patch Previous Rx's Medication Instructions Recorded prochlorperazine maleate 5 mg 5 mg PO QID PRN nausea and 03/18/21 tablet vomiting #60 tabs silver sulfadiazine 1 % topical 1 applic topical BID #50 grams 09/07/21 cream (SSD) hydromorphone 1 mg/mL oral liquid 2 - 4 mg (2 - 4 mL) feeding tube 09/09/21 Q4H PRN pain #473 mL methylphenidate HCl 10 mg/5 mL 20 mg (10 mL) feeding tube DAILY 10/02/21 oral solution #500 mL metoclopramide HCl 5 mg/5 mL oral 5 mg (5 mL) feeding tube Q8H PRN 10/02/21 solution #473 mL fentanyl 100 mcg/hr transdermal 1 patch transdermal Q72H #10 ea 10/14/21 patch Allergies Allergy/AdvReac Type Severity Reaction Status Date / Time mercury (elemental) Allergy Verified 10/15/21 02:22 shellfish derived Allergy Verified 10/15/21 02:22 General Stated Complaint: AMS/LOC ANGELA: 2 Review of Systems Constitutional Constitutional: Reports fatigue, Reports fever(s) (Subjective), Denies headache(s) and Reports weakness (Generalized) ENT Ears, Nose, Mouth, and Throat: Denies headache(s) and Reports neck pain (chronic) Cardiovascular Cardiovascular: Denies chest pain and Denies dyspnea Respiratory Respiratory: Reports cough and Denies dyspnea Gastrointestinal Gastrointestinal: Denies abdominal pain, Denies nausea and Denies vomiting Genitourinary Genitourinary: Denies dysuria Musculoskeletal Musculoskeletal: Reports neck pain (chronic) Integumentary/Breasts Skin/Breast: Denies rash Neurologic Neurologic: Denies headache(s) and Reports weakness (Generalized) Endocrine Endocrine: Reports fatigue Hematologic/Lymphatic Hematologic/Lymphatic: Denies easy bleeding and Denies easy bruising PFSH All Active Problems PEG tube malfunction (Acute) COVID (Acute) Constipation (Acute) Palliative care patient (Acute) Medical History Abnormal weight loss Cancer related pain DNI (do not intubate) DNR (do not resuscitate) Dysphagia Head and neck cancer Hypertension Physician orders for life-sustaining treatment (POLST) form indicates patient wish for [id number] status Tonsil cancer Trismus Surgical History History of oral surgery Hx of knee surgery Social History Smoking/Tobacco Use Status: Current every day Tobacco Type: cigarettes Smoking packs per day: 0.25 Smoking cigarettes per day: 5.0 Smoking risk assessment performed?: Yes Alcohol Intake: former Drug use: Occasionally Substance use type: former substance user and marijuana What is your relationship status?: Panel score (0-1 are the most socially isolated patients): 1 Do you feel safe at home: Yes Do you feel safe in your relationship?: Yes Exam Const General: cooperative, no acute distress and ill appearing chronically Orientation: alert, awake, oriented to person and oriented to place [facility] Head: normal to inspection, normocephalic and atraumatic Face and sinus: normal facial exam Mouth: moist mucous membranes abnormal (Dry) Throat: posterior oropharynx normal Eyes General: appearance normal, both eyes and all related structures Conjunctivae: conjunctivae normal Neck Neck: no meningeal signs, trachea midline and supple Other: Appearance consistent status post radiation treatment Chest Other: Port in place Resp Effort & Inspection: normal respiratory effort, able to speak in complete sentences and cough Quality of cough: dry (mild) Auscultation: diminished lung sounds bilaterally in the lower lung dickens Cardio Rate: regular rate Rhythm: regular rhythm GI Palpation: soft, not firm, no guarding, no pulsatile masses and nontender Auscultation: normal bowel sounds Other: PEG tube in place Back/Spine/Pelvis Back: No back tenderness Skin General skin exam: no rashes or lesions noted Neuro General: patient alert, patient awake, oriented Patient Orientation: Person and Place, moves all extremities and no focal motor deficits Cognition: normal cognition Motor: muscle tone normal throughout Sensory Exam: no sensory deficits noted Extrem General: normal to inspection, full ROM and capillary refill normal Psych Appearance: grossly normal Mental Status: mental status grossly normal Course Vital Signs Vital signs: Vital Signs Temperature 37.5 C 10/24/21 12:57 Pulse 84 10/24/21 12:57 Respiratory Rate 14 10/24/21 12:57 Blood Pressure 130/74 10/24/21 12:57 Pulse Oximetry 100 10/24/21 12:57 Temperature 37.5 C 10/24/21 12:57 Temperature Source Tympanic 10/24/21 12:57 Pulse 84 10/24/21 12:57 Respiratory Rate 14 10/24/21 12:57 Respiratory Effort 10/24/21 14:06 Blood Pressure 130/74 10/24/21 12:57 Blood Pressure Position Supine 10/24/21 12:57 Pulse Oximetry 100 10/24/21 12:57 Oxygen Delivery Method Room Air 10/24/21 12:57 Oxygen Flow Rate 0 10/24/21 12:57 Lab/Test Results Lab/Test Results: 10/24/21 13:23 Blood Blood Culture - Pending 10/24/21 13:23 Blood Blood Culture - Pending Laboratory Tests Range/Units 10/24/21 10/24/21 10/24/21 13:20 13:20 13:20 WBC (4.4-10.8) 10^3/uL 3.22 L RBC (4.36-5.78) 10^6/uL 3.07 L Hgb (13.5-17.5) g/dL 9.4 L Hct (40.0-50.0) % 27.9 L MCV (80-95) fL 91 MCH (27.0-33.0) pg 30.6 MCHC (32.0-36.0) % 33.7 RDW (11.8-14.1) % 14.3 H Plt Count (130-400) 10^3/uL 137 MPV (8.0-11.0) fL 10.7 Immature Gran % 0.3 Neutrophils % 76.4 Lymphocytes % 6.8 Monocytes % 13.7 Eosinophils % 1.9 Basophils % 0.9 Nucleated RBC % (0.0-0.3) % 0.0 Absolute Neutrophils (1.2-6.7) 10^3/uL 2.46 Absolute Lymphocytes (1.2-3.4) 10^3/uL 0.22 L Absolute Monocytes (0.1-0.8) 10^3/uL 0.44 Absolute Eosinophils (0.0-0.7) 10^3/uL 0.06 Absolute Basophils (0.0-0.2) 10^3/uL 0.03 ESR (0-20) mm/hr PT (9.3-11.0) sec INR (0.9-1.1) Sodium (136-145) mmol/L 141 Potassium (3.5-5.1) mmol/L 3.2 L Chloride (98-107) mmol/L 101 Carbon Dioxide (21.0-32.0) mmol/L 34.3 H Anion Gap (3-11) mmol/L 5.7 BUN (7-18) mg/dL 32 H Creatinine (0.70-1.30) mg/dL 1.7 H Estimated GFR/1.73 m2 (mL/min/1.73m2) 42.54 Glucose (74-106) mg/dL 116 H Calcium (8.5-10.1) mg/dL 9.3 Total Bilirubin (0.2-1.0) mg/dL 0.6 AST (15-37) U/L 24 ALT (16-63) U/L 20 Alkaline Phosphatase (46-116) U/L 59 Troponin I Cancelled C-Reactive Protein (0.0-0.3) mg/dL 0.05 Total Protein (6.4-8.2) g/dL 6.8 Albumin (3.4-5.0) g/dL 3.4 COVID-19 Source SARS-CoV-2 (PCR) (Negative) Influenza Type A (PCR) (Negative) Influenza Type B (PCR) (Negative) RSV (PCR) (Negative) Range/Units 10/24/21 10/24/21 10/24/21 13:20 13:20 13:20 WBC (4.4-10.8) 10^3/uL RBC (4.36-5.78) 10^6/uL Hgb (13.5-17.5) g/dL Hct (40.0-50.0) % MCV (80-95) fL MCH (27.0-33.0) pg MCHC (32.0-36.0) % RDW (11.8-14.1) % Plt Count (130-400) 10^3/uL MPV (8.0-11.0) fL Immature Gran % Neutrophils % Lymphocytes % Monocytes % Eosinophils % Basophils % Nucleated RBC % (0.0-0.3) % Absolute Neutrophils (1.2-6.7) 10^3/uL Absolute Lymphocytes (1.2-3.4) 10^3/uL Absolute Monocytes (0.1-0.8) 10^3/uL Absolute Eosinophils (0.0-0.7) 10^3/uL Absolute Basophils (0.0-0.2) 10^3/uL ESR (0-20) mm/hr 18 PT (9.3-11.0) sec 11.4 H INR (0.9-1.1) 1.1 Sodium (136-145) mmol/L Potassium (3.5-5.1) mmol/L Chloride (98-107) mmol/L Carbon Dioxide (21.0-32.0) mmol/L Anion Gap (3-11) mmol/L BUN (7-18) mg/dL Creatinine (0.70-1.30) mg/dL Estimated GFR/1.73 m2 (mL/min/1.73m2) Glucose (74-106) mg/dL Calcium (8.5-10.1) mg/dL Total Bilirubin (0.2-1.0) mg/dL AST (15-37) U/L ALT (16-63) U/L Alkaline Phosphatase (46-116) U/L Troponin I C-Reactive Protein (0.0-0.3) mg/dL Total Protein (6.4-8.2) g/dL Albumin (3.4-5.0) g/dL COVID-19 Source Not Applicable SARS-CoV-2 (PCR) (Negative) Positive A Influenza Type A (PCR) (Negative) Negative Influenza Type B (PCR) (Negative) Negative RSV (PCR) (Negative) Negative
[2021-10-24 14:46] LABS: Lactate 1.6 mmol/L (0.6-1.4)
--- NOTE | 2021-10-24 15:38 | W.PM.HP.N ---
Date of service: 10/24/21 Time of Service: 15:38 Assessment and Plan Assessment and plan (1) COVID: Status: Acute Assessment and plan: Unvaccinated. Not hypoxic. Dry cough. At risk for complications; Remdesivir initiated. Standar COVID precautions. (2) Head and neck cancer: Assessment and plan: Has recently made decision not to pursue any further treatment and is contemplating hospice care. Cont PEG feeds/hydration/meds. Cont home pain regimen: Fentanyl patch and prn hydromorphone. (3) Failure to thrive in adult: Status: Acute Assessment and plan: D/T head/neck cancer and now with COVID-19. Palliative care consulted. (4) Anemia: Status: Chronic Assessment and plan: Related to his cancer dx and likely his previous cancer tx. Hgb essentially in his more recent normal range. (5) Hypokalemia: Status: Acute Assessment and plan: Replace via PEG. (6) Palliative care patient: Status: Acute Assessment and plan: Palliative consulted. Discuss his decision to potentially proceed with hospice enrollment. 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 He is a palliative care patient contemplating hospice care. He c/o generalized weakness, dry cough, subjective fever, bodyaches since the day before presentation. He was noted to have a decreased level of responsiveness. In the ED he was found to be COVID positive. Not hypoxic. Afebrile. WBC count 3.22. Hgb 9.4. Lactate 1.6. K 3.2. CRP 0.05. ESR 18. Procal <0.1. CXR w/o acute findings. He is not vacinnated for COVID-19. Review of Systems All systems reviewed & are unremarkable except as noted in HPI and below PFSH All Active Problems (Updated 10/24/21 @ 16:08 by Lucien Omer MD) Hypokalemia (Acute) Anemia (Chronic) Failure to thrive in adult (Acute) PEG tube malfunction (Acute) COVID (Acute) Constipation (Acute) Palliative care patient (Acute) Medical History Abnormal weight loss Cancer related pain DNI (do not intubate) DNR (do not resuscitate) Dysphagia Head and neck cancer Hypertension Physician orders for life-sustaining treatment (POLST) form indicates patient wish for [id number] status Tonsil cancer Trismus Surgical History History of oral surgery Hx of knee surgery Social History Smoking/Tobacco Use Status: Current every day Tobacco Type: cigarettes Smoking packs per day: 0.25 Smoking cigarettes per day: 5.0 Smoking risk assessment performed?: Yes Alcohol Intake: former Drug use: Occasionally Substance use type: former substance user and marijuana What is your relationship status?: Panel score (0-1 are the most socially isolated patients): 1 Do you feel safe at home: Yes Do you feel safe in your relationship?: Yes Meds Allergies and Home Medications Allergies Allergy/AdvReac Type Severity Reaction Status Date / Time mercury (elemental) Allergy Verified 10/15/21 02:22 shellfish derived Allergy Verified 10/15/21 02:22 Home Medications Medication Instructions Recorded Confirmed Type prochlorperazine maleate 5 mg 5 mg PO QID PRN nausea and 03/18/21 10/24/21 Rx tablet vomiting #60 tabs silver sulfadiazine 1 % topical 1 applic topical BID #50 grams 09/07/21 10/24/21 Rx cream (SSD) hydromorphone 1 mg/mL oral liquid 2 - 4 mg (2 - 4 mL) feeding tube 09/09/21 10/24/21 Rx Q4H PRN pain #473 mL methylphenidate HCl 10 mg/5 mL 20 mg (10 mL) feeding tube DAILY 10/02/21 10/24/21 Rx oral solution #500 mL metoclopramide HCl 5 mg/5 mL oral 5 mg (5 mL) feeding tube Q8H PRN 10/02/21 10/24/21 Rx solution #473 mL fentanyl 100 mcg/hr transdermal 1 patch transdermal Q72H #10 ea 10/14/21 10/24/21 Rx patch Exam Narrative Exam Narrative: 51 yo male that appears his stated age. Const General: cooperative and no acute distress Nutritional Appearance: average body habitus Orientation: alert, oriented to person and oriented to place Eyes General: appearance normal, both eyes and all related structures Sclera: sclerae normal Resp Effort & Inspection: normal respiratory effort Auscultation: clear to auscultation bilaterally Cardio Rate: regular rate Rhythm: regular rhythm Heart Sounds: S1 normal and S2 normal GI Palpation: soft and nontender Skin General skin exam: no rashes or lesions noted Neuro General: no focal motor deficits Cranial Nerves: facial strength normal Speech: speech normal Extrem General: no pedal edema Psych Appearance: grossly normal Affect: blunted Results Labs Result diagrams: 10/24/21 13:20 10/24/21 13:20 Labs: Laboratory Results - last 24 hr 10/24/21 10/24/21 10/24/21 13:20 13:20 13:20 WBC 3.22 L RBC 3.07 L Hgb 9.4 L Hct 27.9 L MCV 91 MCH 30.6 MCHC 33.7 RDW 14.3 H Plt Count 137 MPV 10.7 Immature Gran % 0.3 Neutrophils % 76.4 Lymphocytes % 6.8 Monocytes % 13.7 Eosinophils % 1.9 Basophils % 0.9 Nucleated RBC % 0.0 Absolute Neutrophils 2.46 Absolute Lymphocytes 0.22 L Absolute Monocytes 0.44 Absolute Eosinophils 0.06 Absolute Basophils 0.03 ESR PT INR VBG Lactate Sodium 141 Potassium 3.2 L Chloride 101 Carbon Dioxide 34.3 H Anion Gap 5.7 BUN 32 H Creatinine 1.7 H Estimated GFR/1.73 m2 42.54 Glucose 116 H Calcium 9.3 Total Bilirubin 0.6 AST 24 ALT 20 Alkaline Phosphatase 59 Troponin I Cancelled C-Reactive Protein 0.05 Total Protein 6.8 Albumin 3.4 COVID-19 Source SARS-CoV-2 (PCR) Influenza Type A (PCR) Influenza Type B (PCR) RSV (PCR) 10/24/21 10/24/21 10/24/21 13:20 13:20 13:20 WBC RBC Hgb Hct MCV MCH MCHC RDW Plt Count MPV Immature Gran % Neutrophils % Lymphocytes % Monocytes % Eosinophils % Basophils % Nucleated RBC % Absolute Neutrophils Absolute Lymphocytes Absolute Monocytes Absolute Eosinophils Absolute Basophils ESR 18 PT 11.4 H INR 1.1 VBG Lactate Sodium Potassium Chloride Carbon Dioxide Anion Gap BUN Creatinine Estimated GFR/1.73 m2 Glucose Calcium Total Bilirubin AST ALT Alkaline Phosphatase Troponin I C-Reactive Protein Total Protein Albumin COVID-19 Source Not Applicable SARS-CoV-2 (PCR) Positive A Influenza Type A (PCR) Negative Influenza Type B (PCR) Negative RSV (PCR) Negative 10/24/21 14:37 WBC RBC Hgb Hct MCV MCH MCHC RDW Plt Count MPV Immature Gran % Neutrophils % Lymphocytes % Monocytes % Eosinophils % Basophils % Nucleated RBC % Absolute Neutrophils Absolute Lymphocytes Absolute Monocytes Absolute Eosinophils Absolute Basophils ESR PT INR VBG Lactate 1.6 H Sodium Potassium Chloride Carbon Dioxide Anion Gap BUN Creatinine Estimated GFR/1.73 m2 Glucose Calcium Total Bilirubin AST ALT Alkaline Phosphatase Troponin I C-Reactive Protein Total Protein Albumin COVID-19 Source SARS-CoV-2 (PCR) Influenza Type A (PCR) Influenza Type B (PCR) RSV (PCR) Last Vital Signs Temp 37.0 C 10/24/21 14:56 Pulse 75 10/24/21 14:56 Resp 15 10/24/21 14:56 BP 129/69 10/24/21 14:56 Pulse Ox 99 10/24/21 14:56
[2021-10-24 15:48] LABS: Procalcitonin < 0.1 ng/mL
[2021-10-24] MEDS: fentaNYL 100 MCG PATCH TD (16:50)
[2021-10-24] MEDS: REMDESIVIR 200 MG in Normal Saline 250 ML 250 MG IVPB (17:07)
[2021-10-24 18:06] LABS: Bilirubin Negative (Negative); Blood Negative (Negative); Clarity Clear (Clear); Glucose Negative (Negative); Ketones Negative (Negative); Leukocyte Esterase Negative (Negative); Nitrite Negative (Negative); Specific Gravity 1.015 (1.005-1.025); pH 8.5 (5-8)
[2021-10-24 18:13] LABS: Bacteria Rare HPF (Negative); C & S Indicated? No; Crystals Few Amorphous HPF (Negative); Epithelial Cells Rare HPF (Negative); Mucus Trace (Negative); RBC 0-2 HPF (0-2); WBC Negative HPF (0-5)
[2021-10-24] MEDS: Potassium Chloride Liquid 20 MEQ PKT NG (19:46)
[2021-10-24] MEDS: Normal Saline Flush 10 ML SYR IVP (19:46)
[2021-10-24] MEDS: HYDROmorphone 2 MG TAB NG (20:23)
[2021-10-24] MEDS: Acetaminophen Solution 650 MG/20.3 ML CUP NG (23:04)
[2021-10-25 01:58] VITALS: BP 117/75; PULSE 65; RESP 16; TEMP 37.3; O2SAT 96
[2021-10-25 06:55] LABS: Anion Gap 5.2 mmol/L (3-11); BUN 27 mg/dL (7-18); CO2 32.8 mmol/L (21.0-32.0); CREATININE 1.6 mg/dL (0.70-1.30); Calcium 8.7 mg/dL (8.5-10.1); Chloride 105 mmol/L (98-107); Estimated GFR 45.62 (mL/min/1.73m2); Glucose 81 mg/dL (74-106); Potassium 3.3 mmol/L (3.5-5.1); Sodium 143 mmol/L (136-145)
--- NOTE | 2021-10-25 07:12 | PCNE_ITS ---
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 He is a palliative care patient contemplating hospice care.? He c/o generalized wea kness, dry cough, subjective fever, bodyaches since the day before presentation.? He was noted to have a decreased level of responsiveness. In the ED he was found to be COVID positive.? Not hypoxic. Afebrile.? WBC count 3.22.? Hgb 9.4. Lactate 1.6. K 3.2. CRP 0.05. ESR 18.? Procal <0.1. CXR w/o acute findings.? He is not vacinnated for COVID-19. Interim Hx: Debra is lying in bed. He is cooperative. He is normally a patient of Irene Chakraborty NP. I am seeing him today at the request of staff. They are concerned about his pain control and also possible hospice consult. ? Assessment and Plan Assessment and plan (1) Failure to thrive in adult: Status: Acute Assessment and plan: Weight loss, anemia present. We discussed end-of-life issues and at this point he wants life-prolonging therapies. He understands his feels differently and that he should be ready for hospice. Presently he is not undergoing radiation or chemotherapy, but is not opposed to restarting it Pain is presently fairly well controlled. Irene is his regular palliative care provider. I will forward this note to her. I am not certain how prognostically aware Debra is. He states there is no cancer in his family his parents lived long lives and he expects to. He did ask me specifically how long I thought he had to live. My reply was months not weeks and not years. (2) COVID: Status: Acute Assessment and plan: Not immunized person. Tested COVID-positive. Not on supplemental oxygen. Not short of breath (3) Head and neck cancer: Assessment and plan: At this point treatment is on hold. Patient feels that it is because of his 's wishes. He felt he was going through treatments fine. Review of Systems Narrative: Debra says that he does have pain, but at this point it is fairly well controlled. He states that his feels he should go on hospice but that he feels that he has 3+ years to live if he does not undergo treatment and 67 years to live if he does go through treatment. He wants any treatment that is life-sustaining. He does want quality of life but living longer is very important to him. He has taken a break from his present chemotherapy and oncology at the request of his . He feels that he could go back to this and live longer. He does not t hink that he has less than 6 months to live and therefore he would not qualify for hospice. He said he is already shown that he can live longer than what they expected. He feels strongly that this will be the case with his life span. Constitutional Comments: He states he can do most things that he could do in the past. He is having more difficulty with sustained activities, he is weaker, things take longer, he gets more tired quicker, but that he still is able to do just about everything he did in the past PFS All Active Problems (Updated 10/24/21 @ 16:08 by Lucien Omer MD) Hypokalemia (Acute) Anemia (Chronic) Failure to thrive in adult (Acute) PEG tube malfunction (Acute) COVID (Acute) Constipation (Acute) Palliative care patient (Acute) Medical History Abnormal weight loss Cancer related pain DNI (do not intubate) DNR (do not resuscitate) Dysphagia Head and neck cancer Hypertension Physician orders for life-sustaining treatment (POLST) form indicates patient wish for dw-nwd-zxuhvuzetto status Tonsil cancer Trismus Surgical History History of oral surgery Hx of knee surgery Social History Smoking/Tobacco Use Status: Current every day Tobacco Type: cigarettes Smoking packs per day: 0.25 Smoking cigarettes per day: 5.0 Smoking risk assessment performed?: Yes Alcohol Intake: former Drug use: Occasionally Substance use type: former substance user and marijuana What is your relationship status?: Panel score (0-1 are the most socially isolated patients): 1 Do you feel safe at home: Yes Do you feel safe in your relationship?: Yes Exam Narrative Exam Narrative: 51-year-old male speaking in complete sentences. Heart is regular. Lungs are clear. The more I got to know him the more I like him. His mood seemed good, he is reasonable about prognosis and wants to know more, he also respects his 's wishes Results Last Vital Signs Temp 99.1 F 10/25/21 01:58 Pulse 65 10/25/21 01:58 Resp 16 10/25/21 01:58 BP 117/75 10/25/21 01:58 Pulse Ox 96 10/25/21 01:58 Labs Result diagrams: 10/24/21 13:20 10/25/21 06:15 Labs: Laboratory Results - last 24 hr 10/24/21 10/24/21 10/24/21 13:20 13:20 13:20 WBC 3.22 L RBC 3.07 L Hgb 9.4 L Hct 27.9 L MCV 91 MCH 30.6 MCHC 33.7 RDW 14.3 H Plt Count 137 MPV 10.7 Immature Gran % 0.3 Neutrophils % 76.4 Lymphocytes % 6.8 Monocytes % 13.7 Eosinophils % 1.9 Basophils % 0.9 Nucleated RBC % 0.0 Absolute Neutrophils 2.46 Absolute Lymphocytes 0.22 L Absolute Monocytes 0.44 Absolute Eosinophils 0.06 Absolute Basophils 0.03 ESR PT INR VBG Lactate Sodium 141 Potassium 3.2 L Chloride 101 Carbon Dioxide 34.3 H Anion Gap 5.7 BUN 32 H Creatinine 1.7 H Estimated GFR/1.73 m2 42.54 Glucose 116 H Calcium 9.3 Total Bilirubin 0.6 AST 24 ALT 20 Alkaline Phosphatase 59 Troponin I Cancelled C-Reactive Protein 0.05 Total Protein 6.8 Albumin 3.4 Procalcitonin Urine Color Urine Clarity Urine pH Ur Specific [place] Urine Protein Urine Ketones Urine Blood Urine Nitrite Urine Bilirubin Urine Urobilinogen Ur Leukocyte Esterase Urine RBC Urine WBC Ur Epithelial Cells Urine Crystals Urine Bacteria Urine Mucus Ur Culture Indicated? Urine Glucose COVID-19 Source SARS-CoV-2 (PCR) Influenza Type A (PCR) Influenza Type B (PCR) RSV (PCR) 10/24/21 10/24/21 10/24/21 13:20 13:20 13:20 WBC RBC Hgb Hct MCV MCH MCHC RDW Plt Count MPV Immature Gran % Neutrophils % Lymphocytes % Monocytes % Eosinophils % Basophils % Nucleated RBC % Absolute Neutrophils Absolute Lymphocytes Absolute Monocytes Absolute Eosinophils Absolute Basophils ESR 18 PT 11.4 H INR 1.1 VBG Lactate Sodium Potassium Chloride Carbon Dioxide Anion Gap BUN Creatinine Estimated GFR/1.73 m2 Glucose Calcium Total Bilirubin AST ALT Alkaline Phosphatase Troponin I C-Reactive Protein Total Protein Albumin Procalcitonin Urine Color Urine Clarity Urine pH Ur Specific [place] Urine Protein Urine Ketones Urine Blood Urine Nitrite Urine Bilirubin Urine Urobilinogen Ur Leukocyte Esterase Urine RBC Urine WBC Ur Epithelial Cells Urine Crystals Urine Bacteria Urine Mucus Ur Culture Indicated? Urine Glucose COVID-19 Source Not Applicable SARS-CoV-2 (PCR) Positive A Influenza Type A (PCR) Negative Influenza Type B (PCR) Negative RSV (PCR) Negative 10/24/21 10/24/21 10/24/21 14:37 14:37 17:40 WBC RBC Hgb Hct MCV MCH MCHC RDW Plt Count MPV Immature Gran % Neutrophils % Lymphocytes % Monocytes % Eosinophils % Basophils % Nucleated RBC % Absolute Neutrophils Absolute Lymphocytes Absolute Monocytes Absolute Eosinophils Absolute Basophils ESR PT INR VBG Lactate 1.6 H Sodium Potassium Chloride Carbon Dioxide Anion Gap BUN Creatinine Estimated GFR/1.73 m2 Glucose Calcium Total Bilirubin AST ALT Alkaline Phosphatase Troponin I C-Reactive Protein Total Protein Albumin Procalcitonin < 0.1 Urine Color Yellow Urine Clarity Clear Urine pH 8.5 H Ur Specific [place] 1.015 Urine Protein 30 H Urine Ketones Negative Urine Blood Negative Urine Nitrite Negative Urine Bilirubin Negative Urine Urobilinogen 1.0 H Ur Leukocyte Esterase Negative Urine RBC 0-2 Urine WBC Negative Ur Epithelial Cells Rare Urine Crystals Few Amorphous Urine Bacteria Rare Urine Mucus Trace Ur Culture Indicated? No Urine Glucose Negative COVID-19 Source SARS-CoV-2 (PCR) Influenza Type A (PCR) Influenza Type B (PCR) RSV (PCR) 10/25/21 06:15 WBC RBC Hgb Hct MCV MCH MCHC RDW Plt Count MPV Immature Gran % Neutrophils % Lymphocytes % Monocytes % Eosinophils % Basophils % Nucleated RBC % Absolute Neutrophils Absolute Lymphocytes Absolute Monocytes Absolute Eosinophils Absolute Basophils ESR PT INR VBG Lactate Sodium 143 Potassium 3.3 L Chloride 105 Carbon Dioxide 32.8 H Anion Gap 5.2 BUN 27 H Creatinine 1.6 H Estimated GFR/1.73 m2 45.62 Glucose 81 Calcium 8.7 Total Bilirubin AST ALT Alkaline Phosphatase Troponin I C-Reactive Protein Total Protein Albumin Procalcitonin Urine Color Urine Clarity Urine pH Ur Specific [place] Urine Protein Urine Ketones Urine Blood Urine Nitrite Urine Bilirubin Urine Urobilinogen Ur Leukocyte Esterase Urine RBC Urine WBC Ur Epithelial Cells Urine Crystals Urine Bacteria Urine Mucus Ur Culture Indicated? Urine Glucose COVID-19 Source SARS-CoV-2 (PCR) Influenza Type A (PCR) Influenza Type B (PCR) RSV (PCR)
[2021-10-25] MEDS: Potassium Chloride Liquid 20 MEQ PKT NG (08:36)
[2021-10-25] MEDS: Methylphenidate 10 MG TAB NG (08:37)
[2021-10-25 08:50] VITALS: BP 125/79; PULSE 64; RESP 15; TEMP 37.2; O2SAT 96
--- NOTE | 2021-10-25 14:11 | INITIAL_ITS ---
- If Service Date Differs Date of service: 10/25/21 Time of Service: 14:11 Care Management Initial Assess REASON FOR HOSPITALIZATION:: Failure to thrive PAST MEDICAL HISTORY/PAST SURGICAL HISTORY:: All Active Problems. Hypokalemia (Acute). Anemia (Chronic). Failure to thrive in adult (Acute). PEG tube malfunction (Acute). COVID (Acute). Constipation (Acute). Palliative care patient (Acute). Medical History. Abnormal weight loss. Cancer related pain. DNI (do not intubate). DNR (do not resuscitate). Dysphagia. Head and neck cancer. Hypertension. Physician orders for life-sustaining treatment (POLST) form indicates patient wish for by-ejx-isqvkslinbt status. Tonsil cancer. Trismus. Surgical History. History of oral surgery. Hx of knee surgery PREVIOUS FUNCTIONAL STATUS/SOCIAL/FAMILY SUPPORTS:: Debra, who goes by Justin, lives in [facility] with his , Renate. He was independent prior to his cancer diagnosis/treatment in 11/2020. His , Renate, is very supportive. Renate's daughter is also living with them, and assists with his care during the day while Renate is working. CURRENT FUNCTIONAL STATUS:: Justin is being closely monitored on Covid precautions, therefore CM did not meet with him today. Per report, he is ambulating independently and is not requiring supplemental O2. He met with Palliative care today, and stated that he isn't ready to be on hospice at this time. Per MD, he will be discharged today. CM called and talked to his , Renate, who stated that she will pick him up, and bring clothes for him to change into. CM will continue to follow. ADVANCE DIRECTIVES:: [facility] on file. Has patient been provided with info about the portal/API?: Yes Did the patient sign up for the portal?: No CODE STATUS:: DNR/DNI INSURANCE COVERAGE / FINANCIAL ISSUES:: [employer] CURRENT HOME/COMMUNITY SERVICES/EQUIPMENT:: None. PRIMARY CARE PHYSICIAN:: Enedelia Coker POTENTIAL DISCHARGE NEEDS:: Follow up appointments. PATIENT/FAMILY EDUCATION NEEDS:: Review discharge instructions and limitations, discussion of self care needs including ask me three and goals of care. ANTICIPATED BARRIERS TO DISCHARGE:: None. TRANSPORTATION:: via private vehicle by his . PLAN:: Anticipate Justin will return home today with new orders for HH RN. His will drive him home via private vehicle. He will follow up with Palliative care, his PCP, and his discharge plan of care. CM will continue to follow.
--- NOTE | 2021-10-25 14:18 | PDOC.HHF2F ---
Home Health Certification Home Health Certification: 1. Encounter Date and Reason I certify that Debra Mello was seen by Lucien Omer MD on 10/25/21 and that I had a [id number] encounter with this patient that meets the physician face to face encounter requirements. 2. Clinical Findings Supporting Skilled Need and Homebound Status I certify that home health services are medically necessary, include either intermittent senior care and/or physical/speech therapy, and that this patient is homebound in that absences from the home require considerable and taxing effort and are infrequent or of short duration, or are attributable to the need to receive medical care. [X] (a) Attached documentation from encounter provides clinical findings supporting skilled need and homebound status (including what assistance patient requires to leave the home). The encounter with the patient was in whole, or in part, for the following medical condition, which is the primary reason for home health care: Failure to Thrive Residential:Assess for exacerbation of medical condition. Physical Therapy: Speech Therapy: Homebound:Patient is unable to leave home w/o assistance d/t decreased strength and endurance 3. Certification and Authentication I certify that I composed the above information based on my clinical judgement relating to this patient's medical condition and, if applicable, clinical findings communicated to me by the NPP or inpatient physician who performed the Home Health Referral. All further orders will be obtained through Enedelia Coker (Community Based Physician - PCP)
--- NOTE | 2021-10-25 14:28 | W.PM.DS.N ---
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 He is a palliative care patient contemplating hospice care.? He c/o generalized weakness, dry cough, subjective fever, bodyaches since the day before presentation.? He was noted to have a decreased level of responsiveness. In the ED he was found to be COVID positive.? Not hypoxic. Afebrile.? WBC count 3.22.? Hgb 9.4. Lactate 1.6. K 3.2. CRP 0.05. ESR 18.? Procal <0.1. CXR w/o acute findings.? He is not vacinnated for COVID-19. A dose of remdesivir was given during this admission. He felt better and was ambulating unassisted the following morning. Palliative care evaluated patient and he will continue to follow with them / ongoing discussion of whether to enter hospice care or not. Follow up with PCP in 1-2 weeks and palliative per their recommendations. Home Meds and New Rx's Prescriptions: Continued fentanyl 100 mcg/hr patch 72 hour 1 patch transdermal Q72H MDD 1 patch Qty: 10 0RF Rx Instructions: for cancer related pain prochlorperazine maleate 5 mg tablet 5 mg PO QID PRN (Reason: nausea and vomiting) Qty: 60 3RF hydromorphone 1 mg/mL liquid 2 - 4 mg feeding tube Q4H MDD 24 mg PRN (Reason: pain) Qty: 473 0RF Rx Instructions: for cancer related pain. unable to take PO. metoclopramide HCl 5 mg/5 mL solution 5 mg feeding tube Q8H PRN Qty: 473 0RF Rx Instructions: palliative patient, cannot take PO methylphenidate HCl 10 mg/5 mL solution 20 mg feeding tube DAILY MDD 10 mg Qty: 500 0RF Rx Instructions: For cancer related fatigue. Unable to take PO due to cancer. Palliative care patient. silver sulfadiazine [SSD] 1 % Cream 1 applic topical BID Qty: 50 0RF Rx Instructions: apply to neck Discharge Instructions Activity:: Activity as Tolerated Equipment/Supplies:: No Equipment Needed Diet:: Enteral feeds Discharge Orders Discharge Orders: Discharge Order (Routine); Ordered 10/25/21 Ordered By: Lucien Omer DS: Summary Time Spent with Patient providing and/or coordinating discharge services: Greater than 30 minutes Status at Discharge Functional status at discharge: independent ambulation Overall status at discharge: patient is progressing back to baseline Mental Status: mental status grossly normal Speech and Movement: speech and movement normal Mood: congruent mood Affect: normal affect Exam Narrative Exam Narrative: 51 yo male that appears his stated age. Const General: cooperative and no acute distress Nutritional Appearance: average body habitus Orientation: alert, oriented to person and oriented to place Eyes General: appearance normal, both eyes and all related structures Sclera: sclerae normal Resp Effort & Inspection: normal respiratory effort Auscultation: clear to auscultation bilaterally Cardio Rate: regular rate Rhythm: regular rhythm Heart Sounds: S1 normal and S2 normal GI Palpation: soft and nontender Skin General skin exam: no rashes or lesions noted Neuro General: no focal motor deficits Cranial Nerves: facial strength normal Speech: speech normal Extrem General: no pedal edema Psych Appearance: grossly normal Mental Status: mental status grossly normal Speech and Movement: speech and movement normal Mood: congruent mood Affect: normal affect DS: Data Vitals/I&O Vitals and I&O: Vital Signs Temperature 37.2 C 10/25/21 08:50 Temperature Source Tympanic 10/25/21 08:50 Pulse 64 10/25/21 08:50 Pulse Rhythm Regular 10/25/21 08:40 Respiratory Rate 15 10/25/21 08:50 Respiratory Effort Non-Labored 10/25/21 08:40 Respiratory Depth Normal 10/25/21 08:40 Respiratory Pattern Normal 10/25/21 08:40 Blood Pressure 125/79 10/25/21 08:50 Blood Pressure Position Supine 10/24/21 12:57 Pulse Oximetry 96 10/25/21 08:50 Oxygen Delivery Method Room Air 10/25/21 08:50 Oxygen Flow Rate 0 10/25/21 08:50 Pain Level 5 10/25/21 08:50 Comment 10/24/21 20:06 Intake & Output 10/24/21 10/25/21 10/25/21 23:59 11:59 23:59 Intake Total 2335 / 2335 100 / 220 120 / 220 Output Total 400 / 400 300 / 600 300 / 600 Balance 1935 / 1935 -200 / -380 -180 / -380 Weight 72.575 kg Intake: IV 2335 / 2335 Oral 100 / 220 120 / 220 Output: Urine 400 / 400 300 / 600 300 / 600 Other: Urine Color Yellow Yellow Light Rolanda Urine Appearance Clear Clear Clear Urine Odor None Normal None Voiding Methods Urinal Urinal Toilet Data Completed and Pending Labs on day of discharge: Labs from last 24 hours 10/25/21 10/24/21 10/24/21 06:15 17:40 14:37 VBG Lactate Sodium 143 Potassium 3.3 L Chloride 105 Carbon Dioxide 32.8 H Anion Gap 5.2 BUN 27 H Creatinine 1.6 H Estimated GFR/1.73 m2 45.62 Glucose 81 Calcium 8.7 Procalcitonin < 0.1 Urine Color Yellow Urine Clarity Clear Urine pH 8.5 H Ur Specific [place] 1.015 Urine Protein 30 H Urine Ketones Negative Urine Blood Negative Urine Nitrite Negative Urine Bilirubin Negative Urine Urobilinogen 1.0 H Ur Leukocyte Esterase Negative Urine RBC 0-2 Urine WBC Negative Ur Epithelial Cells Rare Urine Crystals Few Amorphous Urine Bacteria Rare Urine Mucus Trace Ur Culture Indicated? No Urine Glucose Negative 10/24/21 14:37 VBG Lactate 1.6 H Sodium Potassium Chloride Carbon Dioxide Anion Gap BUN Creatinine Estimated GFR/1.73 m2 Glucose Calcium Procalcitonin Urine Color Urine Clarity Urine pH Ur Specific [place] Urine Protein Urine Ketones Urine Blood Urine Nitrite Urine Bilirubin Urine Urobilinogen Ur Leukocyte Esterase Urine RBC Urine WBC Ur Epithelial Cells Urine Crystals Urine Bacteria Urine Mucus Ur Culture Indicated? Urine Glucose 10/24/21 14:37 Blood Blood Culture - Pending 10/24/21 14:21 Blood Blood Culture - Pending Preliminary micro results at discharge 10/24/21 14:37 Blood Culture - Pending Blood 10/24/21 14:21 Blood Culture - Pending Blood PFSH All Active Problems Hypokalemia (Acute) Anemia (Chronic) Failure to thrive in adult (Acute) PEG tube malfunction (Acute) COVID (Acute) Constipation (Acute) Palliative care patient (Acute) Medical History Abnormal weight loss Cancer related pain DNI (do not intubate) DNR (do not resuscitate) Dysphagia Head and neck cancer Hypertension Physician orders for life-sustaining treatment (POLST) form indicates patient wish for [id number]-[id number] status Tonsil cancer Trismus Surgical History History of oral surgery Hx of knee surgery Social History Smoking/Tobacco Use Status: Current every day Tobacco Type: cigarettes Smoking packs per day: 0.25 Smoking cigarettes per day: 5.0 Smoking risk assessment performed?: Yes Alcohol Intake: former Drug use: Occasionally Substance use type: former substance user and marijuana What is your relationship status?: Panel score (0-1 are the most socially isolated patients): 1 Do you feel safe at home: Yes Do you feel safe in your relationship?: Yes
--- NOTE | 2021-10-25 14:34 | PDOC.CMDIS ---
- If Service Date Differs Date of service: 10/25/21 Time of Service: 14:34 LACE Index Scoring Tool - Questions: Length of Stay (in days): 1 Acuity (Admit via E.D.?): Yes Comorbidities: Metastatic Solid Tumor E.D. Visits: 2 - Answers: Total Score: 11 Risk of Readmission: High Risk Care Management Discharge Reason for Hospitalization: Failure to thrive Discharge Plan: Justin will return home with new orders for HH RN. His will drive him home via private vehicle. He will follow up with Palliative care, his PCP and discharge plan of care. He is happy to be going home. Patient/Family Education Needs: Review discharge instructions and limitations, discussion of self care needs including ask me three. Services Needed at Discharge: Home Health Care Services (RN)
[2021-10-25] MEDS: Normal Saline Flush 10 ML SYR IVP (15:07)
[2021-10-25] MEDS: Heparin 500 UNITS/5 ML SYRINGE IVP (15:07)
== END 2021-10-25 15:21 | disposition home health service (06) ==
LOC: ER 15:06 → MS 16:15
PROVIDERS: Admitting Provider Family Medicine; Emergency Provider Physician Assistant; PCP Nurse Practitioner Family; Visit Provider Family Medicine
DX: U07.1 COVID-19 (principal); R53.1 Weakness; R50.9 Fever, unspecified; R41.82 Altered mental status, unspecified; Z79.899 Other long term (current) drug therapy; Z66 Do not resuscitate; I10 Essential (primary) hypertension; Z93.1 Gastrostomy status; D64.9 Anemia, unspecified; E87.6 Hypokalemia; R62.7 Adult failure to thrive; Z68.23 Body mass index [BMI] 23.0-23.9, adult; C09.9 Malignant neoplasm of tonsil, unspecified; C79.9 Secondary malignant neoplasm of unspecified site; K59.00 Constipation, unspecified; F17.210 Nicotine dependence, cigarettes, uncomplicated; F10.10 Alcohol abuse, uncomplicated
CPT/HCPCS: 36410; 36415; 36416; 80048; 80053; 82962; 84145; 85652; 87040; 87637; 93005; 96361; 96365; 96366; 99285; 71045; 81003; 81015; 83605; 84484; 85025; 85610; 86140; 93010; 99217; 99220; G0378; J0131; J0248

== ENCOUNTER 2021-11-28 01:23 | Emergency (ER) | payer MEDICAID, SELFPAY ==
[2021-11-28 01:29] VITALS: BP 91/54; PULSE 73; RESP 16; TEMP 36.4; O2SAT 95
--- NOTE | 2021-11-28 02:01 | ED.GENADUL_ITS ---
Discharge Plan Disposition Patient Disposition: HOME Condition: Improving Discharge Details Clinical Impression: Dislodged gastrostomy tube Primary Care Provider: REAL RANGEL ED Provider: Adelita Brooks Home Meds and New Rx's Prescriptions: Continued acetaminophen 650 mg suppository 650 mg IA Q6H PRN (Reason: fever, mild pain) Qty: 6 0RF Rx Instructions: Hospice Patient hyoscyamine sulfate 0.125 mg tablet,disintegrating 0.125 - 0.25 mg PO Q4H PRN (Reason: secretions) Qty: 24 0RF Rx Instructions: Hospice Patient lorazepam 1 mg tablet 1 mg PO Q4H PRN (Reason: anxiety, PLUMMER or nausea) Qty: 6 5RF Rx Instructions: Hospice Patient haloperidol lactate 2 mg/mL concentrate 1 mg PO Q6H PRN (Reason: agitation) Qty: 15 0RF Rx Instructions: Hospice Patient prochlorperazine maleate 10 mg tablet 10 mg PO Q6H PRN (Reason: nausea and vomiting) Qty: 6 0RF Rx Instructions: Hospice Patient bisacodyl [Dulcolax (bisacodyl)] 10 mg suppository 10 mg IA daily PRN (Reason: constipation) Qty: 2 0RF Rx Instructions: Hospice Patient Insert 1 supp IA Daily PRN constipation (no BM in 3 days) metoclopramide HCl 5 mg/5 mL solution 5 mg feeding tube Q8H PRN Qty: 473 0RF Rx Instructions: palliative patient, cannot take PO methylphenidate HCl 10 mg/5 mL solution 20 mg feeding tube DAILY MDD 10 mg Qty: 500 0RF Rx Instructions: For cancer related fatigue. Unable to take PO due to cancer. Palliative care patient. hydromorphone 2 mg/mL solution 1 mg IV Q1H MDD 50 mg Qty: 100 0RF Rx Instructions: hospice CADD via medi-port; 2 mg/ml concentrate basal: 1 mg/hr bolus: 0.5 mg q15m PRN Discharge Instructions Instructions: How to Use and Care for Your PEG Tube (ED) Additional Instructions: You can attempt to use your temporary Marin catheter for nutrition according to your usual schedule, You have been placed on general surgery's list for a follow-up appointment early this week for removal of the Marin catheter and replacement of a gastrostomy tube. You can call the general surgery office on Sean morning to schedule and confirm this follow up appointment. Return immediately to the emergency department if you develop any worsening or new concerning symptoms such as fever, vomiting, abdominal pain or any other concerns. Referrals: Ted Lu MD [ [facility] STAFF PHYSICIAN] - Discharge Data Discharge Date/Time-TO BE ENTERED AT DEPARTURE: 11/28/21 03:29 Discharge Physician: Adelita Brooks Medical Decision Making 51-year-old male with a history of head and neck cancer who is DNR/DNI with history of G-tube placed in March 2021 presents with complaint of G-tube fell out 30 minutes ago while attempting to flush with water after feeding. Denies any fever, vomiting or abdominal pain. Patient appears comfortable and nontoxic. Abdomen is soft and nontender. G- tube appears intact and balloon in place normally. Nursing able to flush catheter with water and is flowing well. Attempted to replace patient's G-tube and patient is experiencing pain with bleeding at insertion site. Case discussed with general surgery Dr. Lu who recommends placing a 16 [place] Marin catheter with injection of 50 cc of Gastrografin and abdominal x-ray to confirm platement. Patient states he uses his G-tube for nutrition but is able to take meds and fluids orally. Able to place the 16 [place] Marin at bedside. 50 cc of Gastrografin injected in the radiology department and 1 view x-ray appears to confirm placement. Imaging reviewed with Dr. Lu who confirms that G-tube appears in the appropriate location. Patient feels comfortable and denies any significant abdominal pain and feels comfortable going home. Patient placed on general surgery follow-up plan for replacement of his G-tube this week. Usual and customary return precautions given prior to discharge. Medical Records Medical records reviewed: Yes I reviewed the patient's medical records. Imaging Data Radiologic Study: Radiologist's impression: XR Abdomen Exam date and time: 11/28/2021 3:08 AM Age: 51 years old Clinical indication: Other: Confirm marin catheter placement at g tube site; Additional info: administered 50 ml gastrografin for visualization of g tube in correct area TECHNIQUE: Imaging protocol: Radiologic exam of the abdomen. Views: Frontal supine view of the abdomen. 1 View. COMPARISON: CR XR ABDOMEN FLAT PLATE 09/03/2021 5:10 PM FINDINGS: Tubes, catheters and devices: A single surgical clip projects over the left upper quadrant. Gastrointestinal tract: There is a nonspecific nonobstructive bowel gas pattern. Enteric contrast has been administered via an indwelling gastrostomy tube which opacifies the rugal folds of the stomach confirming intraluminal position. No contrast extravasation is seen. Bones/joints: Degenerative changes. No acute osseous abnormality. IMPRESSION: The gastrostomy tube is intraluminal in position. HPI General Mode of arrival: ambulatory . Date/Time Provider Initiated Documentation: 11/28/21 01:34 . Limitations to Documentation: no limitations . Information obtained by: patient . HPI Narrative: Patient is a 51-year-old male with history of head and neck cancer who is DNR/DNI and is followed by palliative care with a G-tube that was initially inserted in March 2021 presents with a complaint of a G-tube that has fallen out within the last 30 minutes. Patient states he was administering his food through his G-tube and was attempting to flush it and it appeared clogged and the end of the G-tube fell out from the site. Patient is denying any fever, vomiting or abdominal pain Related Data Home Medications Medication Instructions Recorded Confirmed methylphenidate HCl 10 mg/5 mL 20 mg (10 mL) feeding tube DAILY 10/02/21 10/24/21 oral solution #500 mL metoclopramide HCl 5 mg/5 mL oral 5 mg (5 mL) feeding tube Q8H PRN 10/02/21 11/28/21 solution #473 mL acetaminophen 650 mg rectal 650 mg IA Q6H PRN fever, mild pain 10/29/21 11/28/21 suppository #6 supp bisacodyl 10 mg rectal suppository 10 mg IA daily PRN constipation #2 10/29/21 1 (Dulcolax (bisacodyl)) supp haloperidol lactate 2 mg/mL oral 1 mg (0.5 mL) PO Q6H PRN agitation 10/29/21 10/29/21 concentrate #15 mL hyoscyamine sulfate 0.125 mg 0.125 - 0.25 mg PO Q4H PRN 10/29/21 10/29/21 disintegrating tablet secretions #24 tabs lorazepam 1 mg tablet 1 mg PO Q4H PRN anxiety, PLUMMER or 10/29/21 11/28/21 nausea #6 tabs prochlorperazine maleate 10 mg 10 mg PO Q6H PRN nausea and 10/29/21 10/29/21 tablet vomiting #6 tabs hydromorphone 2 mg/mL injection 1 mg (0.5 mL) IV Q1H pain #100 mL 11/25/21 11/28/21 solution Previous Rx's Medication Instructions Recorded methylphenidate HCl 10 mg/5 mL 20 mg (10 mL) feeding tube DAILY 10/02/21 oral solution #500 mL metoclopramide HCl 5 mg/5 mL oral 5 mg (5 mL) feeding tube Q8H PRN 10/02/21 solution #473 mL acetaminophen 650 mg rectal 650 mg IA Q6H PRN fever, mild pain 10/29/21 suppository #6 supp bisacodyl 10 mg rectal suppository 10 mg IA daily PRN constipation #2 10/29/21 (Dulcolax (bisacodyl)) supp haloperidol lactate 2 mg/mL oral 1 mg (0.5 mL) PO Q6H PRN agitation 10/29/21 concentrate #15 mL hyoscyamine sulfate 0.125 mg 0.125 - 0.25 mg PO Q4H PRN 10/29/21 disintegrating tablet secretions #24 tabs lorazepam 1 mg tablet 1 mg PO Q4H PRN anxiety, PLUMMER or 10/29/21 nausea #6 tabs prochlorperazine maleate 10 mg 10 mg PO Q6H PRN nausea and 10/29/21 tablet vomiting #6 tabs hydromorphone 2 mg/mL injection 1 mg (0.5 mL) IV Q1H pain #100 mL 11/25/21 solution Allergies Allergy/AdvReac Type Severity Reaction Status Date / Time mercury (elemental) Allergy Verified 11/28/21 01:32 shellfish derived Allergy Verified 11/28/21 01:32 General Stated Complaint: Recheck ANGELA: 4 Review of Systems All systems reviewed & are unremarkable except as noted in HPI and below Constitutional Constitutional: Reports as per HPI, Denies chills and Denies fever(s) Eyes Eyes: Denies blurry vision ENT Ears, Nose, Mouth, and Throat: Denies dizziness, Denies sore throat and Denies throat swelling Cardiovascular Cardiovascular: Denies chest pain and Denies dyspnea Respiratory Respiratory: Denies cough and Denies dyspnea Gastrointestinal Gastrointestinal: Denies abdominal pain, Denies diarrhea and Denies vomiting Genitourinary Genitourinary: Denies hematuria and Denies dysuria Musculoskeletal Musculoskeletal: Denies back pain and Denies numbness Integumentary/Breasts Skin/Breast: Denies lesions and Denies rash Neurologic Neurologic: Denies dizziness, Denies localized weakness and Denies numbness Allergic/Immunologic Allergic/Immunologic: Denies throat swelling PFSH All Active Problems (Updated 11/28/21 @ 03:21 by Adelita Brooks DO) Dislodged gastrostomy tube (Acute) Hospice care patient (Acute) admitted 10/29/21 Hypokalemia (Acute) Anemia (Chronic) Failure to thrive in adult (Acute) COVID (Acute) Constipation (Acute) Palliative care patient (Acute) Medical History Abnormal weight loss Cancer related pain DNI (do not intubate) DNR (do not resuscitate) Dysphagia Head and neck cancer Hypertension Physician orders for life-sustaining treatment (POLST) form indicates patient wish for as-xha-whbihkeyqas status Tonsil cancer Trismus Surgical History History of oral surgery Hx of knee surgery Social History Smoking/Tobacco Use Status: Current every day Tobacco Type: cigarettes Smoking packs per day: 0.25 Smoking cigarettes per day: 5.0 Smoking risk assessment performed?: Yes Alcohol Intake: former Drug use: Occasionally Substance use type: former substance user and marijuana What is your relationship status?: Panel score (0-1 are the most socially isolated patients): 1 Do you feel safe at home: Yes Do you feel safe in your relationship?: Yes Exam Const General: cooperative and no acute distress Orientation: alert, awake and oriented x3 HENMT Head: normal to inspection Eyes General: appearance normal, both eyes and all related structures Neck Neck: normal visual inspection Resp Effort & Inspection: normal respiratory effort and able to speak in complete sentences Auscultation: clear to auscultation bilaterally Cardio Rate: regular rate Rhythm: regular rhythm GI Palpation: soft, not firm, no guarding, no masses, not rigid and nontender Abdomen image: 1. G tube tract insertion site. External tract appears well healed without erythema, edema, induration, fluctuance or bleeding. Skin General skin exam: no rashes or lesions noted Neuro General: patient alert, patient awake and patient oriented x3 Motor: muscle tone normal throughout Extrem General: normal to inspection and full ROM Psych Appearance: grossly normal Affect: normal affect Course Vital Signs Vital signs: Vital Signs Temperature 97.5 F L 11/28/21 01:29 Pulse 73 11/28/21 01:29 Respiratory Rate 16 11/28/21 01:29 Blood Pressure 91/54 L 11/28/21 01:29 Pulse Oximetry 95 11/28/21 01:29 Temperature 97.5 F L 11/28/21 01:29 Temperature Source Skin 11/28/21 01:29 Pulse 73 11/28/21 01:29 Respiratory Rate 16 11/28/21 01:29 Blood Pressure 91/54 L 11/28/21 01:29 Pulse Oximetry 95 11/28/21 01:29 Pain Level 0 11/28/21 01:29
--- NOTE | 2021-11-28 02:45 | DI.RAD_ITS ---
Exam(s) XR ABDOMEN FLAT PLATE EXAM: XR ABDOMEN FLAT PLATE CLINICAL HISTORY: confirm marin catheter placement at G tube site. TECHNIQUE: 2D digital imaging was performed. COMPARISON: CR,XR XR ABDOMEN FLAT PLATE from 09/03/2021 FINDINGS: Single view of the abdomen: Administered Gastrografin via the indwelling gastrostomy tube reveals all the contrast to be in the g astric fundus, without obvious extravasation evident on this single view study. IMPRESSION: Gastrostomy tube is intraluminal. DATA REPOSITORY: RADIATION DOSE DELIVERED:
[2021-11-28] MEDS: Gastrografin 120 ML BTL 50 ML PO (03:29)
--- NOTE | 2021-11-28 05:46 | DI.VRAD_ITS ---
PROCEDURE INFORMATION: Exam: XR Abdomen Exam date and time: 11/28/2021 3:08 AM Age: 51 years old Clinical indication: Other: Confirm marin catheter placement at g tube site; Additional info: Dr administered 50 ml gastrografin for visualization of g tube in correct area TECHNIQUE: Imaging protocol: Radiologic exam of the abdomen. Views: Frontal supine view of the abdomen. 1 View. COMPARISON: CR XR ABDOMEN FLAT PLATE 09/03/2021 5:10 PM FINDINGS: Tubes, catheters and devices: A single surgical clip projects over the left upper quadrant. Gastrointestinal tract: There is a nonspecific nonobstructive bowel gas pattern. Enteric contrast has been administered via an indwelling gastrostomy tube which opacifies the rugal folds of the stomach confirming intraluminal position. No contrast extravasation is seen. Bones/joints: Degenerative changes. No acute osseous abnormality. IMPRESSION: The gastrostomy tube is intraluminal in position. Dictated and Authenticated by: Savanah Douglas MD. Ordering:JULI Ureña MD
== END 2021-11-28 03:29 | disposition home or self-care (01) ==
PROVIDERS: Emergency Provider Physician Assistant; PCP Nurse Practitioner Family
DX: K94.23 Gastrostomy malfunction (principal); I10 Essential (primary) hypertension; F17.210 Nicotine dependence, cigarettes, uncomplicated; Z66 Do not resuscitate
CPT/HCPCS: 43762; 99283; 74018; 99284

== ENCOUNTER 2021-12-04 21:59 | Emergency (ER) | payer MEDICAID, SELFPAY ==
[2021-12-04 23:00] VITALS: BP 133/79; PULSE 71; RESP 16; TEMP 35.2; O2SAT 95
--- NOTE | 2021-12-04 23:45 | DI.RAD_ITS ---
Exam(s) XR ABDOMEN FLAT PLATE EXAM: XR ABDOMEN FLAT PLATE CLINICAL HISTORY: s/p marin placement, gastrografin TECHNIQUE: COMPARISON: CR,XR XR ABDOMEN FLAT PLATE from 11/28/2021 FINDINGS: Supine AP view was performed and shows catheter overlying the upper abdomen which terminates at the l evel of but is obscured by contrast material in the gastric fundus. Contrast material is also noted in the colon. IMPRESSION: RADIATION DOSE DELIVERED: Total DLP
--- NOTE | 2021-12-04 23:52 | W.ED.GENAD ---
Discharge Plan Disposition Patient Disposition: HOME Condition: Stable Discharge Details Clinical Impression: Gastrojejunostomy tube dislodgement Primary Care Provider: REAL RANGEL ED Provider: Adelita Brooks Home Meds and New Rx's Prescriptions: Continued acetaminophen 650 mg suppository 650 mg DE Q6H PRN (Reason: fever, mild pain) Qty: 6 0RF Rx Instructions: Hospice Patient hyoscyamine sulfate 0.125 mg tablet,disintegrating 0.125 - 0.25 mg PO Q4H PRN (Reason: secretions) Qty: 24 0RF Rx Instructions: Hospice Patient lorazepam 1 mg tablet 1 mg PO Q4H PRN (Reason: anxiety, PLUMMER or nausea) Qty: 6 5RF Rx Instructions: Hospice Patient haloperidol lactate 2 mg/mL concentrate 1 mg PO Q6H PRN (Reason: agitation) Qty: 15 0RF Rx Instructions: Hospice Patient prochlorperazine maleate 10 mg tablet 10 mg PO Q6H PRN (Reason: nausea and vomiting) Qty: 6 0RF Rx Instructions: Hospice Patient bisacodyl [Dulcolax (bisacodyl)] 10 mg suppository 10 mg DE daily PRN (Reason: constipation) Qty: 2 0RF Rx Instructions: Hospice Patient Insert 1 supp DE Daily PRN constipation (no BM in 3 days) metoclopramide HCl 5 mg/5 mL solution 5 mg feeding tube Q8H PRN Qty: 473 0RF Rx Instructions: palliative patient, cannot take PO methylphenidate HCl 10 mg/5 mL solution 20 mg feeding tube DAILY MDD 10 mg Qty: 500 0RF Rx Instructions: For cancer related fatigue. Unable to take PO due to cancer. Palliative care patient. hydromorphone 2 mg/mL solution 2 mg IV Q1H MDD 100 mg Qty: 100 0RF Rx Instructions: hospice CADD via medi-port; 2 mg/ml concentrate basal: 2 mg/hr bolus: 1 mg q15m PRN Discharge Instructions Instructions: How to Use and Care for Your PEG Tube (ED) Additional Instructions: Use your Brito catheter for your feedings temporarily until you follow-up with general surgery. Be sure to determine what size of G-tube has been placed previously so the [facility] general surgery office can order this G-tube for replacement. Call the general surgery office on Sean morning to schedule a follow-up appointment for reevaluation. Return immediately to the emergency department if you develop any worsening or new concerning symptoms. Referrals: Sherry Hernandez DO [OSTEOPATHIC DOCTOR] - Discharge Data Discharge Date/Time-TO BE ENTERED AT DEPARTURE: 12/05/21 01:05 Discharge Physician: Adelita Brooks Medical Decision Making 51-year-old male with a history of head and neck cancer who is DNR/DNI with history of G-tube placement March 2021 at [facility] who was seen here last week after his G-tube fell out and was replaced with a Brito catheter in the ED presents with a complaint of the Brito catheter falling out 2 hours ago at home. States the Brito has been working properly to prior to falling out. Denies any fever or abdominal pain. Case discussed with Dr. Hernandez -- she states surgery office has been in contact with patient regarding replacement of his G-tube. Patient is unsure of his G-tube size so they have been unable to order a G-tube for replacement. Dr. Hernandez recommends replacing a 16 German Brito catheter and can confirm with Gastrografin and abdominal flatplate. Recommend that patient find out what size G-tube was placed at [facility] and then call the surgery office here at [facility] so they can order the appropriate size for placement. 16 German Brito catheter placed. Placement confirmed with 50 cc of Gastrografin injected in the radiology department and Brito catheter appears to be in the stomach. Patient feels good and has no complaints. Patient placed on general surgery follow-up list for reevaluation and to schedule G-tube replacement. states she can determine the size of the G-tube and inform general surgery of this for ordering. Usual and customary return precautions given prior to discharge. Medical Records Medical records reviewed: Yes I reviewed the patient's medical records. Imaging Data Radiologic Study: Radiologist's impression: XR Abdomen Exam date and time: 12/05/2021 12:36 AM Age: 51 years old Clinical indication: Device placement; Gi device; Other: Brito placement; Prior surgery; Surgery date: 6+ months TECHNIQUE: Imaging protocol: Radiologic exam of the abdomen. Views: Frontal supine view of the abdomen. 1 View. Other contrast: gastrogafin; COMPARISON: XR ABDOMEN FLAT PLATE 11/28/2021 3:08 AM FINDINGS: Gastrointestinal tract: Oral contrast within expected location of the stomach and bowel loops. No extravasation identified.? Gastrostomy tube overlying the abdomen. Bones/joints:? Degenerative changes within thoracic spine. IMPRESSION: No contrast material extravasation identified. HPI General Mode of arrival: ambulatory. Date/Time Provider Initiated Documentation: 12/04/21 22:00. Limitations to Documentation: no limitations. Information obtained by: patient. HPI Narrative: Patient is a 51-year-old male with a history of head and neck cancer who is DNR/DNI with a G-tube placed first in March 2021 at [facility] who was seen here last week after his G-tube fell out and was replaced with a 16 German Brito catheter presents with a complaint that the Brito catheter fell out 2 hours ago. Patient states he was attempting to flush his catheter with water after a feeding and he pulled on the end and it popped out. Patient states he called general surgery this week to have the Brito replaced with a G-tube but states they were unable to fit him in and was told that he should go to [facility] to have it replaced. states that patient cannot take to drive to [facility] as he is uncomfortable when sitting in the car. Patient denies any fever, vomiting outside his usual or abdominal pain. Patient states he did not use his Brito for his feedings for several days because he was nervous. He states he has been using it for the past 2 days and it was working well prior to it falling off evening. Related Data Home Medications Medication Instructions Recorded Confirmed methylphenidate HCl 10 mg/5 mL 20 mg (10 mL) feeding tube DAILY 10/02/21 12/04/21 oral solution #500 mL metoclopramide HCl 5 mg/5 mL oral 5 mg (5 mL) feeding tube Q8H PRN 10/02/21 12/04/21 solution #473 mL acetaminophen 650 mg rectal 650 mg DE Q6H PRN fever, mild pain 10/29/21 12/04/21 suppository #6 supp bisacodyl 10 mg rectal suppository 10 mg DE daily PRN constipation #2 10/29/21 12/04/21 (Dulcolax (bisacodyl)) supp haloperidol lactate 2 mg/mL oral 1 mg (0.5 mL) PO Q6H PRN agitation 10/29/21 12/04/21 concentrate #15 mL hyoscyamine sulfate 0.125 mg 0.125 - 0.25 mg PO Q4H PRN 10/29/21 12/04/21 disintegrating tablet secretions #24 tabs lorazepam 1 mg tablet 1 mg PO Q4H PRN anxiety, PLUMMER or 10/29/21 12/04/21 nausea #6 tabs prochlorperazine maleate 10 mg 10 mg PO Q6H PRN nausea and 10/29/21 12/04/21 tablet vomiting #6 tabs hydromorphone 2 mg/mL injection 2 mg IV Q1H pain #100 mL 12/03/21 12/04/21 solution Previous Rx's Medication Instructions Recorded methylphenidate HCl 10 mg/5 mL 20 mg (10 mL) feeding tube DAILY 10/02/21 oral solution #500 mL metoclopramide HCl 5 mg/5 mL oral 5 mg (5 mL) feeding tube Q8H PRN 10/02/21 solution #473 mL acetaminophen 650 mg rectal 650 mg DE Q6H PRN fever, mild pain 10/29/21 suppository #6 supp bisacodyl 10 mg rectal suppository 10 mg DE daily PRN constipation #2 10/29/21 (Dulcolax (bisacodyl)) supp haloperidol lactate 2 mg/mL oral 1 mg (0.5 mL) PO Q6H PRN agitation 10/29/21 concentrate #15 mL hyoscyamine sulfate 0.125 mg 0.125 - 0.25 mg PO Q4H PRN 10/29/21 disintegrating tablet secretions #24 tabs lorazepam 1 mg tablet 1 mg PO Q4H PRN anxiety, PLUMMER or 10/29/21 nausea #6 tabs prochlorperazine maleate 10 mg 10 mg PO Q6H PRN nausea and 10/29/21 tablet vomiting #6 tabs hydromorphone 2 mg/mL injection 2 mg IV Q1H pain #100 mL 12/03/21 solution Allergies Allergy/AdvReac Type Severity Reaction Status Date / Time mercury (elemental) Allergy Verified 12/04/21 23:04 shellfish derived Allergy Verified 12/04/21 23:04 General Stated Complaint: Abd Prob ANGELA: 4 Review of Systems All systems reviewed & are unremarkable except as noted in HPI and below Constitutional Constitutional: Reports as per HPI, Denies chills and Denies fever(s) Eyes Eyes: Denies blurry vision ENT Ears, Nose, Mouth, and Throat: Denies dizziness, Denies sore throat and Denies throat swelling Cardiovascular Cardiovascular: Denies chest pain and Denies dyspnea Respiratory Respiratory: Denies cough and Denies dyspnea Gastrointestinal Gastrointestinal: Denies abdominal pain, Denies diarrhea and Denies vomiting Genitourinary Genitourinary: Denies hematuria and Denies dysuria Musculoskeletal Musculoskeletal: Denies back pain and Denies numbness Integumentary/Breasts Skin/Breast: Denies lesions and Denies rash Neurologic Neurologic: Denies dizziness, Denies localized weakness and Denies numbness Allergic/Immunologic Allergic/Immunologic: Denies throat swelling PFSH All Active Problems (Updated 12/05/21 @ 00:57 by Adelita Brooks DO) Dislodged gastrostomy tube (Acute) Gastrojejunostomy tube dislodgement (Acute) Hospice care patient (Acute) admitted 10/29/21 Hypokalemia (Acute) Anemia (Chronic) Failure to thrive in adult (Acute) COVID (Acute) Constipation (Acute) Palliative care patient (Acute) Medical History Abnormal weight loss Cancer related pain DNI (do not intubate) DNR (do not resuscitate) Dysphagia Head and neck cancer Hypertension Physician orders for life-sustaining treatment (POLST) form indicates patient wish for ey-pyt-omhrevhafcr status Tonsil cancer Trismus Surgical History History of oral surgery Hx of knee surgery Social History Smoking/Tobacco Use Status: Current every day Tobacco Type: cigarettes Smoking packs per day: 0.25 Smoking cigarettes per day: 5.0 Smoking risk assessment performed?: Yes Alcohol Intake: former Drug use: Occasionally Substance use type: former substance user and marijuana What is your relationship status?: Panel score (0-1 are the most socially isolated patients): 1 Do you feel safe at home: Yes Do you feel safe in your relationship?: Yes Exam Const General: cooperative and no acute distress Orientation: alert, awake and oriented x3 HENMT Head: normal to inspection Mouth: oral mucosae normal Eyes General: appearance normal, both eyes and all related structures Neck Neck: normal visual inspection Resp Effort & Inspection: normal respiratory effort and able to speak in complete sentences Auscultation: clear to auscultation bilaterally Cardio Rate: regular rate Rhythm: regular rhythm GI Inspection: other (g tube out, mepilex dressing c/d/i) Palpation: soft, not firm, no guarding, not rigid and nontender Skin General skin exam: no rashes or lesions noted Neuro General: patient alert, patient awake and patient oriented x3 Motor: muscle tone normal throughout Extrem General: normal to inspection and full ROM Psych Appearance: grossly normal Affect: normal affect Course Vital Signs Vital signs: Vital Signs Temperature 95.4 F L 12/04/21 23:00 Pulse 71 12/04/21 23:00 Respiratory Rate 16 12/04/21 23:00 Blood Pressure 133/79 12/04/21 23:00 Pulse Oximetry 95 12/04/21 23:00 Temperature 95.4 F L 12/04/21 23:00 Temperature Source Temporal Artery Scan 12/04/21 23:00 Pulse 71 12/04/21 23:00 Respiratory Rate 16 12/04/21 23:00 Respiratory Effort 12/04/21 23:00 Blood Pressure 133/79 12/04/21 23:00 Blood Pressure Position Supine 12/04/21 23:00 Pulse Oximetry 95 12/04/21 23:00 Oxygen Delivery Method Room Air 12/04/21 23:00 Oxygen Flow Rate 0 12/04/21 23:00 Pain Level 0 12/04/21 23:00
[2021-12-05] MEDS: Gastrografin 120 ML BTL 50 ML IVP (00:48)
--- NOTE | 2021-12-05 01:37 | DI.VRAD_ITS ---
PROCEDURE INFORMATION: Exam: XR Abdomen Exam date and time: 12/05/2021 12:36 AM Age: 51 years old Clinical indication: Device placement; Gi device; Other: Brito placement; Prior surgery; Surgery date: 6+ months TECHNIQUE: Imaging protocol: Radiologic exam of the abdomen. Views: Frontal supine view of the abdomen. 1 View. Other contrast: gastrogafin; COMPARISON: XR ABDOMEN FLAT PLATE 11/28/2021 3:08 AM FINDINGS: Gastrointestinal tract: Oral contrast within expected location of the stomach and bowel loops. No extravasation identified. Gastrostomy tube overlying the abdomen. Bones/joints: Degenerative changes within thoracic spine. IMPRESSION: No contrast material extravasation identified. Dictated and Authenticated by: Phong Seymour MD. Ordering:JULI Ureña MD
--- NOTE | 2021-12-05 06:58 | NUR.NOTE ---
new marin tube inserted by Dr Brooks. landy applied.Nursing Note:
== END 2021-12-05 01:05 | disposition home or self-care (01) ==
PROVIDERS: Emergency Provider Physician Assistant; PCP Nurse Practitioner Family
DX: K94.23 Gastrostomy malfunction (principal); I10 Essential (primary) hypertension; F17.210 Nicotine dependence, cigarettes, uncomplicated; Z66 Do not resuscitate
CPT/HCPCS: 51702; 96374; 99284; 74018

== ENCOUNTER 2024-04-11 02:44 | Outpatient (CLI) | payer OTHER, SELFPAY ==
--- NOTE | 2024-04-11 | DI.RAD_ITS ---
Exam(s) XR LUMBAR SPINE AP, LAT EXAM: XR LUMBAR SPINE AP, LAT CLINICAL HISTORY: LOW BACK PAIN, DISABILITY DETERMINATION,z02.71. TECHNIQUE: 2D digital imaging was performed. COMPARISON: No exams were available for comparison FINDINGS: 3 views No evidence of fracture, listhesis, nor pars defects. No disc space narrowing although there is mild multilevel anterior osseous lipping. Facet joints appear unremarkable. No significant scoliosis. No osseous lesions. Bridging osteophyte noted on the left side at L1-2 levels. IMPRESSION: Mild findings as above. DATA REPOSITORY: RADIATION DOSE DELIVERED:
== END 2024-04-11 03:04 ==
LOC: DI 02:44
PROVIDERS: PCP Nurse Practitioner Family; Visit Provider Pediatrics Pediatric Rheumatology
DX: M43.21 Fusion of spine, occipito-atlanto-axial region (principal)
CPT/HCPCS: 72100

== ENCOUNTER 2024-08-07 14:07 | Emergency (ER) | payer MEDICARE, SELFPAY ==
[2024-08-07 14:17] VITALS: BP 167/104; PULSE 70; RESP 19; TEMP 36.7; O2SAT 94
--- NOTE | 2024-08-07 14:31 | ED.GENADUL_ITS ---
Discharge Plan Disposition Patient Disposition: Home Condition: Stable Discharge Details Clinical Impression: Closed fracture of proximal end of right humerus Primary Care Provider: REAL RANGEL ED Provider: Marcel Soto Home Meds and New Rx's Prescriptions: New cyclobenzaprine 10 mg tablet 10 mg PO TID PRNQty: 20 0RF morphine 15 mg tablet 15 mg PO TID PRN (Reason: pain) Qty: 7 0RF Discharge Instructions Additional Instructions: You have a break in the proximal humerus in your shoulder. Wear the sling until you follow-up with orthopedics. You should try and range your elbow and wrist joints during the day. You can take 1000 mg of acetaminophen and 600 mg of ibuprofen every 6 hours as needed. Try to space out the morphine and cyclobenzaprine by at least a few hours. Only take the morphine if you have severe pain. Call orthopedics tomorrow to arrange for follow-up appointment. If you feel significantly more ill or have new pain such as chest pain return to the emergency department for reevaluation. Referrals: Ignacio Carpenter MD [ [facility] STAFF PHYSICIAN] - [facility] General Mode of arrival: ambulatory . Date/Time Provider Initiated Documentation: 08/07/24 14:15 . Limitations to Documentation: no limitations . Information obtained by: patient . History of Present Illness 54 year old M presents to the emergency department with the chief complaint of right shoulder pain s/p fall, described as severe, Quality is described as aching, Patient extremity. Patient started experiencing this day(s) (1) and it has been constant. Rest improves symptom(s), Movement worsens symptoms . Patient notes no other symptoms.. Patient did receive the following treatments prior to arrival, none Related Data Home Medications ?Medication ?Instructions ?Recorded ?Confirmed cyclobenzaprine 10 mg tablet 10 mg PO TID PRN #20 tabs 08/07/24 morphine 15 mg immediate release 15 mg PO TID PRN pain #7 tabs 08/07/24 tablet Previous Rx's ?Medication ?Instructions ?Recorded cyclobenzaprine 10 mg tablet 10 mg PO TID PRN #20 tabs 08/07/24 morphine 15 mg immediate release 15 mg PO TID PRN pain #7 tabs 08/07/24 tablet Allergies Allergy/AdvReac Type Severity Reaction Status Date / Time mercury (elemental) Allergy Topical Verified 08/07/24 14:40 Irritation shellfish derived Allergy Anaphylaxis Verified 08/07/24 14:40 General Stated Complaint: Orthopedic ANGELA: 3 Review of Systems All systems reviewed & are unremarkable except as noted in HPI and below Constitutional Constitutional: Denies chills, Denies fever(s) and Denies weakness Cardiovascular Cardiovascular: Denies chest pain and Denies dyspnea Respiratory Respiratory: Denies dyspnea Gastrointestinal Gastrointestinal: Denies abdominal pain, Denies nausea and Denies vomiting Musculoskeletal Musculoskeletal: Reports other (right shoulder pain) Neurologic Neurologic: Denies weakness Exam Const General: no acute distress Orientation: alert HENOR Head: normal to inspection Ears: external ears normal General nose exam: external nose normal Mouth: moist mucous membranes Eyes General: appearance normal, both eyes and all related structures Neck Neck: normal visual inspection Resp Effort & Inspection: normal respiratory effort and able to speak in complete sentences Cardio Rate: regular rate Skin General skin exam: no rashes or lesions noted Neuro General: patient alert and patient oriented x3 Extrem General: capillary refill normal Psych Mental Status: mental status grossly normal Course Vital Signs Vital signs: Vital Signs Temperature 36.7 C 08/07/24 14:17 Pulse 70 08/07/24 14:17 Respiratory Rate 19 08/07/24 14:17 Blood Pressure 167/104 H 08/07/24 14:17 Pulse Oximetry 94 08/07/24 14:17 Temperature 36.7 C 08/07/24 14:17 Temperature Source Oral 08/07/24 14:17 Pulse 70 08/07/24 14:17 Respiratory Rate 19 08/07/24 14:17 Blood Pressure 167/104 H 08/07/24 14:17 Blood Pressure Position Sitting 08/07/24 14:17 Pulse Oximetry 94 08/07/24 14:17 Oxygen Delivery Method Room Air 08/07/24 14:17 Oxygen Flow Rate 0 08/07/24 14:17 Pain Level 10 08/07/24 14:17 Medical Decision Making 54-year-old male comes in with right shoulder pain after he was walking his dog and the dog pulled him causing him to fall down on his right shoulder. He did not hit his head or have loss of consciousness. This happened in the afternoon yesterday and has had pain since so came here for evaluation. He has bruising to the anterior right shoulder with swelling of the shoulder. There is no warmth or erythema. He has limited motion due to pain. He has no tenderness to the mid to distal humerus down the arm. He has no loss of sensation in the hand, normal pulses. He has no midline C-spine T-spine or L-spine tenderness. No chest or abdomen tenderness. I suspect contusion versus fracture versus dislocation, will obtain x-rays of the shoulder. Patient has a fracture of the surgical neck of the humerus. Reviewed the case with Dr. Carpenter from orthopedics who recommends sling and will follow-up in 1 to 2 weeks. Patient updated and has no new complaints. He is stable for discharge. Differential Diagnosis Differential Diagnosis: fracture dislocation Quality:SDOH Health Related Social Needs: No Data to Display PFSH All Active Problems (Updated 08/07/24 @ 15:56 by Marcel Soto MD) Closed fracture of proximal end of right humerus (Acute) Tonsil cancer (Acute) Head and neck cancer (Acute) Dysphagia (Acute) Abnormal weight loss (Acute) Hypokalemia (Acute) Anemia (Chronic) Failure to thrive in adult (Acute) Constipation (Acute) Medical History (Updated 08/07/24 @ 15:56 by Marcel Soto MD) COVID Palliative care patient Physician orders for life-sustaining treatment (POLST) form indicates patient wish for [id number]-[id number] status DNI (do not intubate) DNR (do not resuscitate) Trismus Cancer related pain Hypertension Surgical History History of oral surgery Hx of knee surgery Social History Smoking/Tobacco Use Status: Current every day Tobacco Type: cigarettes Smoking packs per day: 0.25 Smoking cigarettes per day: 5.0 Smoking risk assessment performed?: Yes Alcohol Intake: former Drug use: Occasionally Substance use type: former substance user and marijuana What is your relationship status?: Panel score (0-1 are the most socially isolated patients): 1 Do you feel safe at home: Yes Do you feel safe in your relationship?: Yes
[2024-08-07] MEDS: MORPHine IR 15 MG TAB PO (14:34)
--- NOTE | 2024-08-07 14:52 | DI.RAD_ITS ---
Exam(s) XR SHOULDER RT COMPLETE 2+V EXAM: XR SHOULDER RT COMPLETE 2+V CLINICAL HISTORY: pain s/p fall yesterday. TECHNIQUE: 2D digital imaging was performed of the right shoulder. Five images were obtained. AP, Grashey, Y-view and axillary views were obtained. COMPARISON: No exams were available for comparison FINDINGS: BONES: There is a mildly impacted fracture through the proximal metaphysis of the right humerus. No bony destructive lesion is seen. JOINTS: There is mild inferior subluxation of the humeral head relative to the glenoid. Degenerative changes are seen at the acromioclavicular joint. SOFT TISSUE: Normal. IMPRESSION: Mildly impacted fracture through the surgical neck of the right humerus. There is also mild inferior subluxation of the humeral head relative to the glenoid. DATA REPOSITORY: RADIATION DOSE DELIVERED:
[2024-08-07] MEDS: MORPHine IR 15 MG TAB, 4 TABS/BTL PO (16:09)
[2024-08-07 16:17] VITALS: BP 170/99; PULSE 62; O2SAT 98
== END 2024-08-07 16:14 | disposition home or self-care (01) ==
PROVIDERS: Emergency Provider Emergency Medicine; PCP Nurse Practitioner Family
DX: S42.221A 2-part displaced fracture of surgical neck of right humerus, initial encounter for closed fracture (principal); I10 Essential (primary) hypertension; F17.210 Nicotine dependence, cigarettes, uncomplicated; W01.0XXA Fall on same level from slipping, tripping and stumbling without subsequent striking against object, initial encounter; Y93.K1 Activity, walking an animal; Y92.480 Sidewalk as the place of occurrence of the external cause
CPT/HCPCS: 99283; 73030

== ENCOUNTER → 2024-08-20 08:22 | Outpatient (BNVA) | payer MEDICARE, SELFPAY | PROVIDERS: PCP Nurse Practitioner Family; Referring Provider Nurse Practitioner Family; Visit Provider Student in an Organized Health Care Education/Training Program | DX: S42.201A Unspecified fracture of upper end of right humerus, initial encounter for closed fracture (principal); W01.0XXA Fall on same level from slipping, tripping and stumbling without subsequent striking against object, initial encounter; W54.8XXA Other contact with dog, initial encounter; Y93.K1 Activity, walking an animal | CPT/HCPCS: 99213; 73030 ==

== ENCOUNTER 2024-08-20 09:10 | Outpatient (CLI) | payer MEDICARE, SELFPAY ==
--- NOTE | 2024-08-20 08:15 | DI.RAD_ITS ---
Exam(s) XR SHOULDER RT COMPLETE 2+V EXAM: XR SHOULDER RT COMPLETE 2+V INDICATION: F/U FRACTURE. COMPARISON: CR XR SHOULDER RT COMPLETE 2+V from 08/07/2024 TECHNIQUE: 2D digital imaging was performed. Two views. FINDINGS: Stable alignment of proximal humeral fracture. No new abnormalities. DATA REPOSITORY: RADIATION DOSE DELIVERED:
== END 2024-08-20 09:11 | disposition home or self-care (01) ==
LOC: DIORS 09:10
PROVIDERS: PCP Nurse Practitioner Family; Visit Provider Student in an Organized Health Care Education/Training Program
DX: S42.201A Unspecified fracture of upper end of right humerus, initial encounter for closed fracture (principal); W18.30XA Fall on same level, unspecified, initial encounter; Y93.K1 Activity, walking an animal
CPT/HCPCS: 99213; 73030

== ENCOUNTER 2024-09-04 14:16 | Outpatient (CLI) | payer MEDICARE, MEDICAID, SELFPAY ==
--- NOTE | 2024-09-04 14:00 | DI.RAD_ITS ---
Exam(s) XR SHOULDER RT COMPLETE 2+V EXAM: XR SHOULDER RT COMPLETE 2+V INDICATION: F/U FRACTURE. COMPARISON: CR XR SHOULDER RT COMPLETE 2+V from 08/07/2024 CR XR SHOULDER RT COMPLETE 2+V from 08/20/2024 TECHNIQUE: 2D digital imaging was performed. Two views. FINDINGS: The proximal humeral fracture is unchanged in alignment. There has been some increased healing compared with the previous exam. No new abnormalities. DATA REPOSITORY: RADIATION DOSE DELIVERED:
== END 2024-09-04 14:17 | disposition home or self-care (01) ==
LOC: DIORS 14:16
PROVIDERS: PCP Nurse Practitioner Family; Referring Provider Nurse Practitioner Family; Visit Provider Student in an Organized Health Care Education/Training Program
DX: S42.201A Unspecified fracture of upper end of right humerus, initial encounter for closed fracture (principal); G89.11 Acute pain due to trauma; X58.XXXA Exposure to other specified factors, initial encounter
CPT/HCPCS: 99212; 73030

== ENCOUNTER 2024-09-18 14:59 | Outpatient (CLI) | payer MEDICARE, MEDICAID, SELFPAY ==
--- NOTE | 2024-09-18 14:53 | DI.RAD_ITS ---
Exam(s) XR SHOULDER RT COMPLETE 2+V EXAM: XR SHOULDER RT COMPLETE 2+V INDICATION: F/U R PROX HUM FX. COMPARISON: CR XR SHOULDER RT COMPLETE 2+V from 09/04/2024 TECHNIQUE: 2D digital imaging was performed. Two views. FINDINGS: Stable alignment of proximal humeral fracture. Some interval healing is evident. Glenohumeral joint space is maintained. DATA REPOSITORY: RADIATION DOSE DELIVERED:
== END 2024-09-18 15:00 | disposition home or self-care (01) ==
LOC: DIORS 15:00
PROVIDERS: PCP Nurse Practitioner Family; Referring Provider Nurse Practitioner Family; Visit Provider Student in an Organized Health Care Education/Training Program
DX: S42.201D Unspecified fracture of upper end of right humerus, subsequent encounter for fracture with routine healing (principal); X58.XXXD Exposure to other specified factors, subsequent encounter
CPT/HCPCS: 99212; 73030